=== PATIENT | male | born 1935 | race Caucasian/White ===

== ENCOUNTER 2018-12-13 09:37 | Inpatient (IN) ==
--- NOTE | 2018-12-13 10:31 | ED ---
HPI General Chief complaint: GI Bleed Stated complaint: GI Complaint Time Seen by Provider: 12/13/18 10:18 Source: patient and EMS Mode of arrival: EMS Limitations: no limitations History of Present Illness HPI Narrative: 83-year-old male complains of generalized malaise, black tarry stool and shortness of breath. Patient states that symptoms started 4 days ago. Patient states that he has black tarry stool for the past 4 days. Patient states that he has mild intermittent abdominal cramping for the past 4 days. Patient denies any headache. Patient denies any chest pain. Patient states that he has shortness of breath. Patient denies any back pain. Patient denies any dysuria or frequency. Patient denies any fever chills. Patient has history of hypertension, hyperlipidemia, CAD status post CABG. Patient take aspirin 81 mg daily. Last dose of aspirin for this morning. Patient denies history of GI bleed in the past. MD complaint: Reports melena Onset (ago): day(s) Pain Consistency: intermittent Severity: mild Relieving factors: none Exacerbating factors: none Context: Reports anticoagulant use Associated symptoms: Reports abdominal pain, malaise and shortness of breath Treatments Prior to Arrival: Reports none Related Data Home Medications Medication Instructions Recorded Confirmed albuterol sulfate 2.5 mg INHALATION Q6H 12/13/18 12/13/18 aspirin 81 mg PO DAILY 12/13/18 12/13/18 atorvastatin 40 mg PO DAILY 12/13/18 12/13/18 carvedilol 25 mg PO BID 12/13/18 12/13/18 furosemide 40 mg PO BID 12/13/18 12/13/18 hydralazine 10 mg PO Q8H 12/13/18 12/13/18 isosorbide mononitrate 30 mg PO DAILY 12/13/18 12/13/18 niacin 500 mg PO DAILY 12/13/18 12/13/18 olodaterol [Striverdi Respimat] 2 inh INHALATION DAILY 12/13/18 12/13/18 pantoprazole 40 mg PO DAILY 12/13/18 12/13/18 Allergies Allergy/AdvReac Type Severity Reaction Status Date / Time No Known Allergies Allergy Verified 12/13/18 10:17 Review of Systems ROS: all other systems reviewed are negative [facility] Medical History Medical History Hypercholesteremia (Acute) Hypertension (Acute) Surgical History Surgical History Hx of CABG (Acute) Social History Social History Substance History: No History of Abuse Smoking Status: Former smoker How Often Do You Have a Drink Containing Alcohol: Never Recent Travel in [facility] within the Last 8 Weeks: No Recent Out of Country Travel within the Last 8 Weeks: No Immunization History Tetanus Immunization: Unsure Exam Narrative Exam Narrative: GENERAL: Well-nourished, well-developed patient. SKIN: Focused skin assessment warm/dry. HEAD: Normocephalic. EYES: No scleral icterus. No injection or drainage. NECK: Supple, trachea midline. No JVD or lymphadenopathy. CARDIOVASCULAR: Regular rate and rhythm without murmurs, gallops, or rubs. RESPIRATORY: Breath sounds equal bilaterally. No accessory muscle use. GASTROINTESTINAL: Abdomen soft, nondistended. Patient has mild diffuse tenderness over the abdomen. No rebound tenderness. No mass. Rectal exam with black tarry stool. Hemoccult positive. MUSCULOSKELETAL: No cyanosis, or edema. BACK: Nontender without obvious deformity. No CVA tenderness. Neurologic exam normal. Course Initial Documented Vital Signs Temperature 98 F 12/13/18 10:17 Pulse Rate 70 12/13/18 10:17 Respiratory Rate 18 12/13/18 10:17 Blood Pressure 148/63 H 12/13/18 10:17 Pulse Oximetry 98 12/13/18 10:17 Last Documented Vital Signs Temperature 98 F 12/13/18 10:17 Pulse Rate 70 12/13/18 10:23 Respiratory Rate 18 12/13/18 10:17 Blood Pressure 148/63 H 12/13/18 10:17 Pulse Oximetry 99 12/13/18 10:23 Medical Decision Making MDM Narrative Medical decision making narrative: 83-year-old male with intermittent abdominal cramping, black tarry stool. Patient complains of shortness of breath. Normal saline solution 125 cc an hour. Protonix bolus and drip started. Octreotide drip started. Type and cross 3 units of blood and started transfusion when ready. CT scan abdomen pelvis showed possible early distal colon diverticulitis. Levaquin 500 mg IV. Flagyl 500 mg IV given. Medical Screen Exam Complete: Yes Emergency Medical Condition: Yes Differential Diagnosis Differential Diagnosis: Differential diagnosis including upper versus lower GI bleed, diverticulosis, diverticulitis, AV malformation, hemorrhoidal bleed. Lab Data Result diagrams: 12/13/18 10:35 12/13/18 10:35 Lab Results 12/13/18 12/13/18 12/13/18 Range/Units 10:35 10:35 10:35 WBC 12.1 H (4.0-11.0) th/mm3 RBC 1.80 L (4.50-5.90) mil/mm3 Hgb 5.4 L* (13.0-17.0) gm/dL Hct 16.6 L* (39.0-51.0) % MCV 91.9 (80.0-100.0) fL MCH 30.2 (27.0-34.0) pg MCHC 32.9 (32.0-36.0) % RDW 14.8 (11.6-17.2) % Plt Count 187 (150-450) th/mm3 MPV 9.0 (7.0-11.0) fL Neut % (Auto) 72.7 H (16.0-70.0) % Lymph % (Auto) 16.2 (9.0-44.0) % [place] % (Auto) 6.9 (0.0-8.0) % Eos % (Auto) 3.5 (0.0-4.0) % Baso % (Auto) 0.7 (0.0-2.0) % Neut # (Auto) 8.8 H (1.8-7.7) th/mm3 Lymph # (Auto) 2.0 (1.0-4.8) th/mm3 [place] # (Auto) 0.8 (0.0-0.9) th/mm3 Eos # (Auto) 0.4 (0.0-0.4) th/mm3 Baso # (Auto) 0.1 (0.0-0.2) th/mm3 WBC Differential . Differential Comment Auto diff final PT 10.9 (9.8-11.6) sec INR 1.1 Ratio APTT 22.4 L (23.4-31.7) sec Sodium 143 (136-145) meq/L Potassium 4.3 (3.5-5.1) meq/L Chloride 105 (98-107) meq/L Carbon Dioxide 30.8 (21.0-32.0) meq/L Anion Gap 7 (5-15) meq/L BUN 70 H (7-18) mg/dL Creatinine 2.05 H (0.60-1.30) mg/dL Estimated GFR 31 L (>89) mL/min Random Glucose 145 H (74-106) mg/dL Calcium 8.1 L (8.5-10.1) mg/dL Total Bilirubin 0.3 (0.2-1.0) mg/dL AST 12 L (15-37) U/L ALT 13 (12-78) U/L Alkaline Phosphatase 86 (45-117) U/L Troponin I Less than 0.02 L (0.02-0.05) ng/mL Total Protein 5.8 L (6.4-8.2) g/dL Albumin 2.9 L (3.4-5.0) g/dL Lipase 131 (73-393) U/L Blood Type Blood Type Recheck Antibody Screen MTS Gel Crossmatch 12/13/18 12/13/18 Range/Units 10:35 11:11 WBC (4.0-11.0) th/mm3 RBC (4.50-5.90) mil/mm3 Hgb (13.0-17.0) gm/dL Hct (39.0-51.0) % MCV (80.0-100.0) fL MCH (27.0-34.0) pg MCHC (32.0-36.0) % RDW (11.6-17.2) % Plt Count (150-450) th/mm3 MPV (7.0-11.0) fL Neut % (Auto) (16.0-70.0) % Lymph % (Auto) (9.0-44.0) % [place] % (Auto) (0.0-8.0) % Eos % (Auto) (0.0-4.0) % Baso % (Auto) (0.0-2.0) % Neut # (Auto) (1.8-7.7) th/mm3 Lymph # (Auto) (1.0-4.8) th/mm3 [place] # (Auto) (0.0-0.9) th/mm3 Eos # (Auto) (0.0-0.4) th/mm3 Baso # (Auto) (0.0-0.2) th/mm3 WBC Differential Differential Comment PT (9.8-11.6) sec INR Ratio APTT (23.4-31.7) sec Sodium (136-145) meq/L Potassium (3.5-5.1) meq/L Chloride (98-107) meq/L Carbon Dioxide (21.0-32.0) meq/L Anion Gap (5-15) meq/L BUN (7-18) mg/dL Creatinine (0.60-1.30) mg/dL Estimated GFR (>89) mL/min Random Glucose (74-106) mg/dL Calcium (8.5-10.1) mg/dL Total Bilirubin (0.2-1.0) mg/dL AST (15-37) U/L ALT (12-78) U/L Alkaline Phosphatase (45-117) U/L Troponin I (0.02-0.05) ng/mL Total Protein (6.4-8.2) g/dL Albumin (3.4-5.0) g/dL Lipase (73-393) U/L Blood Type A Positive Blood Type Recheck Not needed Antibody Screen Negative MTS Gel Crossmatch See Detail Imaging Data Radiologist's impression: Abdomen/Pelvis CT 12/13/18 10:18 CONCLUSION: 1. Diverticulosis of the descending and sigmoid colon with minimal stranding in the region of the distal descending colon suggesting a mild degree of diverticulitis. No perforation or abscess. 2. Abdominal aortic aneurysm measures 3.5 cm. 3. Status post cholecystectomy. 4. Bilateral renal low-density likely cyst. 5. 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 Discharge Plan Discharge Disposition Patient Disposition: ED Admit(ED Internal Use Only) Discharge Order Discharge Orders: ED Use Only Admit Order (Routine); Ordered 12/13/18 Ordered By: Shaw Julian Discharge Details Diagnosis: Acute GI bleeding, Anemia, Renal insufficiency Physicians Team ED Provider: Shaw Julian Primary Care Provider: Isrrael Gill Attending Provider: Fer Moe Other Providers: Sancho Monique V Status ED Status: Admitted Patient
[2018-12-13] MEDS: Octreotide Inj 500 MCG in Sodium Chlor 0.9% Inj 500 ML IV.CONT SCH ×2 (10:47→21:47)
[2018-12-13] MEDS: Sod Chloride 0.9% Inj 1,000 ML IV.CONT SCH ×2 (10:47→20:52)
[2018-12-13] MEDS: Pantoprazole Inj 80 MG in Sodium Chlor 0.9% Inj 100 ML IV.CONT SCH ×2 (10:48→22:35)
[2018-12-13 10:54] LABS: Baso # (Auto) 0.1 th/mm3 (0.0-0.2); Baso % (Auto) 0.7 % (0.0-2.0); Eos # (Auto) 0.4 th/mm3 (0.0-0.4); Eos % (Auto) 3.5 % (0.0-4.0); Lymph % (Auto) 16.2 % (9.0-44.0); Mean Corpuscular HGB Conc 32.9 % (32.0-36.0); Mean Corpuscular Hemoglobin 30.2 pg (27.0-34.0); Mean Corpuscular Volume 91.9 fL (80.0-100.0); Mono # (Auto) 0.8 th/mm3 (0.0-0.9); Mono % (Auto) 6.9 % (0.0-8.0); Neut # (Auto) 8.8 th/mm3 (1.8-7.7); Neut % (Auto) 72.7 % (16.0-70.0); Platelet Count 187 th/mm3 (150-450); Red Cell Distribution Width 14.8 % (11.6-17.2); White Blood Count 12.1 th/mm3 (4.0-11.0)
[2018-12-13 10:58] LABS: Hematocrit 16.6 % (39.0-51.0); Hemoglobin 5.4 gm/dL (13.0-17.0)
[2018-12-13 11:10] LABS: Activated Partial Thrombo Time 22.4 sec (23.4-31.7); INR 1.1 Ratio; Prothrombin Time 10.9 sec (9.8-11.6)
[2018-12-13 11:12] LABS: Alanine Aminotransferase 13 U/L (12-78); Albumin 2.9 g/dL (3.4-5.0); Anion Gap 7 meq/L (5-15); Aspartate Aminotransferase 12 U/L (15-37); Blood Urea Nitrogen 70 mg/dL (7-18); Calcium 8.1 mg/dL (8.5-10.1); Carbon Dioxide 30.8 meq/L (21.0-32.0); Chloride 105 meq/L (98-107); Glomerular Filtration Rate 31 mL/min (>89); Glucose,Random 145 mg/dL (74-106); Lipase 131 U/L (73-393); Potassium 4.3 meq/L (3.5-5.1); Sodium 143 meq/L (136-145)
[2018-12-13 11:17] LABS: Alkaline Phosphatase 86 U/L (45-117); Total Protein 5.8 g/dL (6.4-8.2)
--- NOTE | 2018-12-13 12:00 | P.HPFP ---
History of Present Illness Primary Care Physician: Isrrael Gill <Fer Moe K - 12/13/18 14:40> Isrrael Gill <Micki Villa - 12/13/18 12:00> Chief Complaint: SOB, fatigue, black stools <Micki Villa - 12/13/18 12 :00> History of Present Illness: 83 year old male with hx of hypertension, hyperlipidemia, CAD status post CABG and COPD presents to the hospital for black tarry stools noted 3-4 days ago. Patient states he has passed a total of 2 to 3 black stools. He denies having anything like this before in the past and is not on iron supplementation. He denies seeing bright red blood in his stool. He is mildly nauseated and felt faint this morning, but denies vomiting. After receiving fluids in the ED, he is no longer experiencing lightheadedness. He admits to abdominal "soreness" in the lower quadrants for the past couple of weeks. He is currently on aspirin , but is not on any other blood thinners. Denies chronic NSAID use. He also notes increasing fatigue for the past couple of weeks. Denies any alcohol use, or history of liver problems. He does admit to history of bleeding hemorrhoids and is currently on a PPI for reflux, however, denies any other GI issues. States that his last colonoscopy was performed within the last 5 years, which was normal. Denies fevers, chills, unintentional weight loss, other notable bleeding, headache, syncopal, chest pain, or recent recurrent falls. Patient also notes slightly increased shortness of breath from baseline, which he attributes to his COPD. He is normally on O2 3L NC continuously throughout the day, and uses albuterol nebulizing treatments and steroid inhaler every day. No sick contacts. 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 Quit smoking in 1994. Drink EOTH rarely. Admits to drinking 1 beer every couple months. Denies illicit drug use PCP: Recently changed to a new physician in [place]. Used to see Dr. De Leon. 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 <Micki Villa 12/13/18 14:04> - Diagnosis (1) Acute GI bleeding (2) Anemia (3) Renal insufficiency (4) COPD (chronic obstructive pulmonary disease) (5) Hypertension (6) Nutrition, metabolism, and development symptoms (7) DVT prophylaxis <Fer Moe 12/13/18 14:40> (1) Acute GI bleeding (2) Anemia (3) Renal insufficiency (4) COPD (chronic obstructive pulmonary disease) (5) Hypertension (6) Nutrition, metabolism, and development symptoms (7) DVT prophylaxis <Deandra Micki Young 12/13/18 14:17> Inpatient Certification: I certify that the inpatient services were ordered in accordance with Medicare regulations governing the order. This includes certification that hospital inpatient services are reasonable and necessary and in the case of services not specified as inpatient-only under 42 CFR 419.22(n), that they are appropriately provided as inpatient services in accordance to with the 2-midnight benchmark under 43 CFR 412.3(e) <Fer Moe 12/13/18 14:40> I certify that the inpatient services were ordered in accordance with Medicare regulations governing the order. This includes certification that hospital inpatient services are reasonable and necessary and in the case of services not specified as inpatient-only under 42 CFR 419.22(n), that they are appropriately provided as inpatient services in accordance to with the 2-midnight benchmark under 43 CFR 412.3(e) <Micki Villa 12/13/18 12:00> Review of Systems Constitutional: Reports fatigue, Reports lack of energy, Reports weakness, Denies chills, Denies fever(s) <Deandra Micki Young 12/13/18 13:40> Eyes: Reports requires corrective lenses, Denies change in vision <Deandra Micki Young 12/13/18 13:40> Ears, Nose, Mouth, and Throat: Denies nasal congestion, Denies sinus pain, Denies sore throat <Deandra Micki Young 12/13/18 13:40> Cardiovascular: Denies chest pain, Denies fast heart rate, Denies irregular heart rhythm <Deandra Micki Young 12/13/18 13:40> Respiratory: Reports shortness of breath, Denies cough <Sung Micki Young B 12/13/18 13:40> Gastrointestinal: Reports abdominal pain (Mild, diffuse), Reports black, tarry stools, Reports nausea, Denies vomiting <Micki Villa 12/13/18 13:40> Genitourinary: Reports difficulty urinating (Intermittent, followed by urologist ) <Micki Villa 12/13/18 13:40> Musculoskeletal: Denies numbness, Denies tingling <Micki Villa 13:40> Neurologic: Denies frequent falls, Denies headache(s), Denies lack of coordination <Micki Villa 12/13/18 13:40> PMFSH - History History Provided By: Patient <Black YoungMicki B 12/13/18 12:00> - Medical History Medical History: Medical History (Last Updated 12/13/18 @ 13:25 by Micki Young, DO, R1) CAD (coronary artery disease) Hypercholesteremia Hypertension <Fer Moe 12/13/18 14:40> Medical History (Last Updated 12/13/18 @ 13:25 by Micki Young DO, R1) CAD (coronary artery disease) Hypercholesteremia Hypertension <Micki Villa 12/13/18 13:40> - Surgical History Surgical History: Surgical History (Last Updated 12/13/18 @ 13:25 by Micki Young, DO, R1) History of cholecystectomy Hx of CABG S/P AAA (abdominal aortic aneurysm) repair <Fer Moe 12/13/18 14:40> Surgical History (Last Updated 12/13/18 @ 13:25 by Micki Young DO, R1) History of cholecystectomy Hx of CABG S/P AAA (abdominal aortic aneurysm) repair <Micki Villa 12/13/18 13:40> - Social History I have reviewed the patient's Social History: Yes <Micki Villa 13:40> - Tobacco History Smoking Status: Former smoker <Micki Villa 12/13/18 12:00> - Alcohol History How Often Do You Have a Drink Containing Alcohol: Never <Micki Villa 12/13/18 12:00> - Substance Use History Substance History: No History of Abuse <Micki Villa 12/13/18 12:00> - Travel History Recent Travel in the [facility] Within the Last 8 Weeks: No <Micki Villa 12:00> Recent Travel Out of the Country Within the Last 8 Weeks: No <Micki Villa 12/13/18 12:00> - Immunization History Tetanus Immunization: Unsure <Micki Villa 12/13/18 12:00> Medications and Allergies Allergies Allergy/AdvReac Type Severity Reaction Status Date / Time No Known Allergies Allergy Verified 12/13/18 10:17 <Fer Moe - 12/13/18 14:40> Home Medications Medication Instructions Recorded Confirmed Type albuterol sulfate 2.5 mg INHALATION Q6H 12/13/18 12/13/18 History aspirin 81 mg PO DAILY 12/13/18 12/13/18 History atorvastatin 40 mg PO DAILY 12/13/18 12/13/18 History carvedilol 25 mg PO BID 12/13/18 12/13/18 History furosemide 40 mg PO BID 12/13/18 12/13/18 History hydralazine 10 mg PO Q8H 12/13/18 12/13/18 History isosorbide mononitrate 30 mg PO DAILY 12/13/18 12/13/18 History niacin 500 mg PO DAILY 12/13/18 12/13/18 History olodaterol [Striverdi Respimat] 2 inh INHALATION DAILY 12/13/18 12/13/18 History pantoprazole 40 mg PO DAILY 12/13/18 12/13/18 History <Fer Moe - 12/13/18 14:40> Active Medications: Active Medications Acetaminophen (Tylenol) 650 mg PO Q4H PRN PRN Reason: Temp > 100.4 Albuterol (*Albuterol Neb Periprocedure Only) 2.5 mg NEB Q6HR NEB PRN PRN Reason: SHORTNESS OF BREATH Atorvastatin Calcium (Lipitor) 40 mg PO DAILY MOMO Pantoprazole Sodium 80 mg/ (Sodium Chloride) 100 mls @ 10 mls/hr IV.CONT CONT MOMO Last Admin: 12/13/18 10:48 Dose: 10 mls/hr Octreotide Acetate 500 mcg/ (Sodium Chloride) 500.5 mls @ 50.05 mls/hr IV.CONT .Q10H MOMO Last Infusion: 12/13/18 14:00 Dose: 50 mcg/hr, 50.05 mls/hr Sodium Chloride (Ns Inj) 1,000 mls @ 125 mls/hr IV.CONT .Q8H MOMO Last Infusion: 12/13/18 14:01 Dose: 125 mls/hr Niacin (Slo-Niacin) 500 mg PO DAILY MOMO Ondansetron HCl (Zofran Inj) 4 mg IV.PUSH Q6H PRN PRN Reason: NAUSEA OR VOMITING Senna/Docusate Sodium (Herminia-Colace) 1 tab PO BID PRN PRN Reason: CONSTIPATION Sodium Chloride (Ns Flush) 2 ml IV.FLUSH BID MOMO Sodium Chloride (Ns Flush) 2 ml IV.FLUSH PRN PRN PRN Reason: FLUSH AFTER USING IV ACCESS <Fer Moe - 12/13/18 14:40> Active Medications Pantoprazole Sodium 80 mg/ (Sodium Chloride) 100 mls @ 10 mls/hr IV.CONT CONT MOMO Last Admin: 12/13/18 10:48 Dose: 10 mls/hr Octreotide Acetate 500 mcg/ (Sodium Chloride) 500.5 mls @ 50.05 mls/hr IV.CONT .Q10H MOMO Last Admin: 12/13/18 10:47 Dose: 50 mcg/hr, 50.05 mls/hr Sodium Chloride (Ns Inj) 1,000 mls @ 125 mls/hr IV.CONT .Q8H MOMO Last Admin: 12/13/18 10:47 Dose: 125 mls/hr <Micki Villa - 12/13/18 12:15> Exam Vital signs: Vital Signs 12/13/18 10:17 12/13/18 10:23 12/13/18 13:00 Temperature 98 F Pulse Rate 70 70 72 Respiratory Rate 18 Blood Pressure 148/63 H Pulse Oximetry 98 99 98 12/13/18 13:03 12/13/18 13:20 Temperature 97.9 F 97.8 F Pulse Rate 69 80 Respiratory Rate 20 18 Blood Pressure 126/60 135/70 Pulse Oximetry 97 99 Intake & Output 02/20/19 02/21/19 02/21/19 18:59 06:59 18:59 Intake Total 100 / 100 Balance 100 / 100 Weight 68.039 kg Intake: IV 100 / 100 Flagyl 500 MG Inj 100 ML @ 100 100 / 100 mls/hr IV.SIG ONCE ONE Rx#: [id number] Intake (Blood Product) Amt 0 / 0 Rbc As-3 Leukoreduced Unit 0 / 0 [id number] <MorganchelsyFer ceballos - 12/13/18 14:40> Vital Signs 12/13/18 10:17 12/13/18 10:23 Temperature 98 F Pulse Rate 70 70 Respiratory Rate 18 Blood Pressure 148/63 H Pulse Oximetry 98 99 Intake & Output 12/12/18 12/13/18 12/13/18 18:59 06:59 18:59 Weight 68.039 kg <Micki Villa - 12/13/18 12:00> Narrative: GENERAL: 83-year-old, well nourished M laying down comfortably in bed. In no acute distress. SKIN: Warm and dry. Mild skin breakdown on bilateral anterior lower extremity, chronic per patient. Chronic ecchymosis of bilateral forearms. HEAD: Atraumatic. Normocephalic. EYES: EMOI. PERRLA. No scleral icterus. No injection or drainage. ENT: No nasal bleeding or discharge. Pallor of mucous membranes and conjunctiva. Airway patent. CARDIOVASCULAR: Regular rate and rhythm. No murmur. Capillary refill greater than 2 seconds. 1-2+ pitting edema of bilateral lower extremities to knee. RESPIRATORY: No accessory muscle use. Difficult to auscultate due to patient's inability to sit up on examination, but overall clear to auscultation, equal breath sounds without crackles, wheeze, rales or rhonchi. GASTROINTESTINAL: Abdomen soft, nondistended. Mild diffuse tenderness to palpation. No guarding or rebound. Hepatic and splenic margins not palpable. MUSCULOSKELETAL: Extremities without clubbing, cyanosis, or edema. No obvious deformities. No calf tenderness. NEUROLOGICAL: Awake and alert. No obvious cranial nerve deficits. Motor grossly within normal limits. Five out of 5 muscle strength in the arms and legs. Normal speech. PSYCHIATRIC: Appropriate mood and affect; insight and judgment normal. <Micki Villa 12/13/18 13:40> Results - Labs Result diagrams: 12/13/18 10:35 12/13/18 10:35 <Fer Moe - 12/13/18 14:40> Abnormal lab results 12/13/18 12/13/18 12/13/18 Range/Units 10:35 10:35 10:35 WBC 12.1 H (4.0-11.0) th/mm3 RBC 1.80 L (4.50-5.90) mil/mm3 Hgb 5.4 L* (13.0-17.0) gm/dL Hct 16.6 L* (39.0-51.0) % Neut % (Auto) 72.7 H (16.0-70.0) % Neut # (Auto) 8.8 H (1.8-7.7) th/mm3 APTT 22.4 L (23.4-31.7) sec BUN 70 H (7-18) mg/dL Creatinine 2.05 H (0.60-1.30) mg/dL Estimated GFR 31 L (>89) mL/min Random Glucose 145 H (74-106) mg/dL Calcium 8.1 L (8.5-10.1) mg/dL AST 12 L (15-37) U/L Troponin I Less than 0.02 L (0.02-0.05) ng/mL Total Protein 5.8 L (6.4-8.2) g/dL Albumin 2.9 L (3.4-5.0) g/dL MTS Gel Crossmatch 12/13/18 Range/Units 11:11 WBC (4.0-11.0) th/mm3 RBC (4.50-5.90) mil/mm3 Hgb (13.0-17.0) gm/dL Hct (39.0-51.0) % Neut % (Auto) (16.0-70.0) % Neut # (Auto) (1.8-7.7) th/mm3 APTT (23.4-31.7) sec BUN (7-18) mg/dL Creatinine (0.60-1.30) mg/dL Estimated GFR (>89) mL/min Random Glucose (74-106) mg/dL Calcium (8.5-10.1) mg/dL AST (15-37) U/L Troponin I (0.02-0.05) ng/mL Total Protein (6.4-8.2) g/dL Albumin (3.4-5.0) g/dL MTS Gel Crossmatch See Detail Short CBC 12/13/18 Range/Units 10:35 WBC 12.1 H (4.0-11.0) th/mm3 Hgb 5.4 L* (13.0-17.0) gm/dL Hct 16.6 L* (39.0-51.0) % Plt Count 187 (150-450) th/mm3 BMP 12/13/18 10:35 Sodium 143 Potassium 4.3 Chloride 105 Carbon Dioxide 30.8 BUN 70 H Creatinine 2.05 H Calcium 8.1 L Cardiac Enzymes 12/13/18 Range/Units 10:35 Troponin I Less than 0.02 L (0.02-0.05) ng/mL Liver Function 12/13/18 Range/Units 10:35 Total Bilirubin 0.3 (0.2-1.0) mg/dL AST 12 L (15-37) U/L ALT 13 (12-78) U/L Alkaline Phosphatase 86 (45-117) U/L Albumin 2.9 L (3.4-5.0) g/dL <Fer Moe - 12/13/18 14:40> Abnormal lab results 12/13/18 12/13/18 12/13/18 Range/Units 10:35 10:35 10:35 WBC 12.1 H (4.0-11.0) th/mm3 RBC 1.80 L (4.50-5.90) mil/mm3 Hgb 5.4 L* (13.0-17.0) gm/dL Hct 16.6 L* (39.0-51.0) % Neut % (Auto) 72.7 H (16.0-70.0) % Neut # (Auto) 8.8 H (1.8-7.7) th/mm3 APTT 22.4 L (23.4-31.7) sec BUN 70 H (7-18) mg/dL Creatinine 2.05 H (0.60-1.30) mg/dL Estimated GFR 31 L (>89) mL/min Random Glucose 145 H (74-106) mg/dL Calcium 8.1 L (8.5-10.1) mg/dL AST 12 L (15-37) U/L Troponin I Less than 0.02 L (0.02-0.05) ng/mL Total Protein 5.8 L (6.4-8.2) g/dL Albumin 2.9 L (3.4-5.0) g/dL MTS Gel Crossmatch 12/13/18 Range/Units 11:11 WBC (4.0-11.0) th/mm3 RBC (4.50-5.90) mil/mm3 Hgb (13.0-17.0) gm/dL Hct (39.0-51.0) % Neut % (Auto) (16.0-70.0) % Neut # (Auto) (1.8-7.7) th/mm3 APTT (23.4-31.7) sec BUN (7-18) mg/dL Creatinine (0.60-1.30) mg/dL Estimated GFR (>89) mL/min Random Glucose (74-106) mg/dL Calcium (8.5-10.1) mg/dL AST (15-37) U/L Troponin I (0.02-0.05) ng/mL Total Protein (6.4-8.2) g/dL Albumin (3.4-5.0) g/dL MTS Gel Crossmatch See Detail Short CBC 12/13/18 Range/Units 10:35 WBC 12.1 H (4.0-11.0) th/mm3 Hgb 5.4 L* (13.0-17.0) gm/dL Hct 16.6 L* (39.0-51.0) % Plt Count 187 (150-450) th/mm3 BMP 12/13/18 10:35 Sodium 143 Potassium 4.3 Chloride 105 Carbon Dioxide 30.8 BUN 70 H Creatinine 2.05 H Calcium 8.1 L Cardiac Enzymes 12/13/18 Range/Units 10:35 Troponin I Less than 0.02 L (0.02-0.05) ng/mL Liver Function 12/13/18 Range/Units 10:35 Total Bilirubin 0.3 (0.2-1.0) mg/dL AST 12 L (15-37) U/L ALT 13 (12-78) U/L Alkaline Phosphatase 86 (45-117) U/L Albumin 2.9 L (3.4-5.0) g/dL <Micki Villa - 12/13/18 12:00> - Imaging Impressions Abdomen/Pelvis CT 12/13/18 10:18 CONCLUSION: 1. Diverticulosis of the descending and sigmoid colon with minimal stranding in the region of the distal descending colon suggesting a mild degree of diverticulitis. No perforation or abscess. 2. Abdominal aortic aneurysm measures 3.5 cm. 3. Status post cholecystectomy. 4. Bilateral renal low-density likely cyst. 5. 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 <Fer Moe 12/13/18 14:40> Caprini VTE Risk Assessment Caprini VTE Risk Assessment: Moderate/High Risk (score >= 2) <Micki Villa 12/13/18 13:40> Caprini Risk Assessment Model: Point Value = 1 Point Value = 2 Point Value = 3 Point Value = 5 Age 41-60 Minor surgery BMI > 25 kg/m2 Swollen legs Varicose veins or History of unexplained or recurrent spontaneous Oral contraceptives or hormone replacement Sepsis (< 1 month) Serious lung disease, including pneumonia (< 1 month) Abnormal pulmonary function Acute myocardial infarction Congestive heart failure (< 1 month) History of inflammatory bowel disease Medical patient at bed rest Age 61-74 Arthroscopic surgery Major open surgery (> 45 min) Laparoscopic surgery (> 45 min) Malignancy Confined to bed (> 72 hours) Immobilizing plaster cast Central venous access Age >= 75 History of VTE Family history of VTE Factor V Leiden Prothrombin [id number] Lupus anticoagulant Anticardiolipin antibodies Elevated serum homocysteine Heparin-induced thrombocytopenia Other congenital or acquired thrombophilia Stroke (< 1 month) Elective arthroplasty Hip, pelvis, or leg fracture Acute spinal cord injury (< 1 month) <Fer Moe 12/13/18 14:40> Point Value = 1 Point Value = 2 Point Value = 3 Point Value = 5 Age 41-60 Minor surgery BMI > 25 kg/m2 Swollen legs Varicose veins or History of unexplained or recurrent spontaneous Oral contraceptives or hormone replacement Sepsis (< 1 month) Serious lung disease, including pneumonia (< 1 month) Abnormal pulmonary function Acute myocardial infarction Congestive heart failure (< 1 month) History of inflammatory bowel disease Medical patient at bed rest Age 61-74 Arthroscopic surgery Major open surgery (> 45 min) Laparoscopic surgery (> 45 min) Malignancy Confined to bed (> 72 hours) Immobilizing plaster cast Central venous access Age >= 75 History of VTE Family history of VTE Factor V Leiden Prothrombin [id number] Lupus anticoagulant Anticardiolipin antibodies Elevated serum homocysteine Heparin-induced thrombocytopenia Other congenital or acquired thrombophilia Stroke (< 1 month) Elective arthroplasty Hip, pelvis, or leg fracture Acute spinal cord injury (< 1 month) <Micki Villa B - 12/13/18 13:40> Prophylaxis Regimen: Total Risk Factor Score Risk Level Prophylaxis Regimen 0-1 Low Early ambulation 2 Moderate Order ONE of the following: *Sequential Compression Device (SCD) *Heparin 5000 units SQ BID 3-4 Higher Order ONE of the following medications: *Heparin 5000 units SQ TID *Enoxaparin/Lovenox 40 mg SQ daily (WT < 150 kg, CrCl > 30 mL/min) *Enoxaparin/Lovenox 30 mg SQ daily (WT < 150 kg, CrCl > 10-29 mL/min) *Enoxaparin/Lovenox 30 mg SQ BID (WT < 150 kg, CrCl > 30 mL/min) AND/OR *Sequential Compression Device (SCD) 5 or more Highest Order ONE of the following medications: *Heparin 5000 units SQ TID (Preferred with Epidurals) *Enoxaparin/Lovenox 40 mg SQ daily (WT < 150 kg, CrCl > 30 mL/min) *Enoxaparin/Lovenox 30 mg SQ daily (WT < 150 kg, CrCl > 10-29 mL/min) *Enoxaparin/Lovenox 30 mg SQ BID (WT < 150 kg, CrCl > 30 mL/min) AND *Sequential Compression Device (SCD) <Fer Moe - 12/13/18 14:40> Total Risk Factor Score Risk Level Prophylaxis Regimen 0-1 Low Early ambulation 2 Moderate Order ONE of the following: *Sequential Compression Device (SCD) *Heparin 5000 units SQ BID 3-4 Higher Order ONE of the following medications: *Heparin 5000 units SQ TID *Enoxaparin/Lovenox 40 mg SQ daily (WT < 150 kg, CrCl > 30 mL/min) *Enoxaparin/Lovenox 30 mg SQ daily (WT < 150 kg, CrCl > 10-29 mL/min) *Enoxaparin/Lovenox 30 mg SQ BID (WT < 150 kg, CrCl > 30 mL/min) AND/OR *Sequential Compression Device (SCD) 5 or more Highest Order ONE of the following medications: *Heparin 5000 units SQ TID (Preferred with Epidurals) *Enoxaparin/Lovenox 40 mg SQ daily (WT < 150 kg, CrCl > 30 mL/min) *Enoxaparin/Lovenox 30 mg SQ daily (WT < 150 kg, CrCl > 10-29 mL/min) *Enoxaparin/Lovenox 30 mg SQ BID (WT < 150 kg, CrCl > 30 mL/min) AND *Sequential Compression Device (SCD) <Micki Villa B - 12/13/18 13:40> Assessment and Plan - Assessment (1) Acute GI bleeding Code(s): K92.2 - Gastrointestinal hemorrhage, unspecified Status: Acute (2) Anemia Code(s): D64.9 - Anemia, unspecified Status: Acute (3) Renal insufficiency Code(s): N28.9 - Disorder of kidney and ureter, unspecified Status: Acute (4) COPD (chronic obstructive pulmonary disease) Code(s): J44.9 - Chronic obstructive pulmonary disease, unspecified Status: Acute (5) Hypertension Code(s): I10 - Essential (primary) hypertension Status: Acute (6) Nutrition, metabolism, and development symptoms Code(s): R63.8 - Other symptoms and signs concerning food and fluid intake Status: Acute (7) DVT prophylaxis Status: Acute <Fer Moe - 12/13/18 14:40> (1) Acute GI bleeding Code(s): K92.2 - Gastrointestinal hemorrhage, unspecified Status: Acute (2) Anemia Code(s): D64.9 - Anemia, unspecified Status: Acute (3) Renal insufficiency Code(s): N28.9 - Disorder of kidney and ureter, unspecified Status: Acute (4) COPD (chronic obstructive pulmonary disease) Code(s): J44.9 - Chronic obstructive pulmonary disease, unspecified Status: Acute (5) Hypertension Code(s): I10 - Essential (primary) hypertension Status: Acute (6) Nutrition, metabolism, and development symptoms Code(s): R63.8 - Other symptoms and signs concerning food and fluid intake Status: Acute (7) DVT prophylaxis Status: Acute <Micki Villa Arie - 12/13/18 14:17> - Assessment and Plan Severe anemia 2/2 GI bleed PUD vs. acute gastritis vs. esophageal varies vs. diverticulosis vs. acute mesenteric ischemia vs. malignancy vs. hemorrhoids. H&H 5.4/16.6 CT abd without contrast, due to JC, ordered in ED showed: 1. Diverticulosis of the descending and sigmoid colon with minimal stranding in the region of the distal descending colon suggesting a mild degree of diverticulitis. No perforation or abscess. 2. Abdominal aortic aneurysm measures 3.5 cm. 3. Status post cholecystectomy. 4. Bilateral renal low-density likely cyst. 5. 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 -CMP showed AST/ALT WNL -Lipase and troponin within normal limits -Hemoccult positive -PT/INR WNL -Continuous cardiac telemetry due to patient's volume status, at risk for arrhythmias -Fluid resuscitation at IV NS at 100 mls/hr -3 units of PRBCs ordered with repeat H&H following completion of transfusion -Protonix drip 80 mg at 10 mls/hr initiated in ED -Avoid NSAIDs -Hold ASA and other blood thinners -GI consulted, appreciate further recommendation Renal insufficiency BUN/Cr 70/2.05 with eGFR 31 Likely acute on chronic renal insufficiency -Continue IVF as states above -Repeat CMP in AM COPD -On continuous O2 3L NC at home -Albuterol breathing tx every 6 hours as needed for shortness of breath Urinary retention -Bladder scan with straight catheterization as needed for urinary retention Hx of hyperlipidemia -Continue home atorvastatin in the AM Hx of HTN -Hold home medications FEN: Fluids: IV NS at 125 mls/hr Electrolytes: Continue to monitor and replete as needed. Diet: NPO DVT prophylaxis SCDs and compression hose dw Dr. Landin <Micki Villa Arie - 12/13/18 14:18> - Attending Attestation The exam, history, and the medical decision-making described in the above note were completed with the assistance of the resident physician. I reviewed and agree with the findings presented. I attest that I had a [id number] encounter with the patient on the same day, and personally performed and documented my assessment and findings in the medical record. agree with resident histories as above d/w Dr Cleaning and patient. 2-3 days of melena no BPBR had Colon/EGD about 5 years ago with some polyps only per him. does have lightheadedness and fear of standing. having trouble urinating in bed khoury despite severe urge to urinate. NAD but pale with mild prolongation of capillary refill and some mild lower extremity edema. 1. GIB likely upper by melena but does have some diverticulitis GI consulted, going for EGD s/p IVF and 1/3 u PRBCs transfusing now on PPI and octreotide gtt will likely hold IVF after EGD to not risk fluid overload with comorbidities and concurrent blood admin 2. Diverticulitis mild on CT with some mesenteric fat stranding on levaquin and flagyl may transition to augmentin when can take PO 3. ABLA 2/2 #1, see plan above 4. JC unsure baseline will get bladder scan with his difficulty urinating and trend after volume resus chronic: cva, htn, hld, cad, copd, aaa, bph: cont home meds with exception of hold anti hypertensives until more stable after EGD if needed. d/w dr cleaning and ED staff <Fer Moe 12/13/18 14:40>
--- NOTE | 2018-12-13 12:04 | CT ---
EXAM DATE: 12/13/2018 11:53 AM EST AGE/SEX: 83 years / Male INDICATIONS: Shortness of breath and black stool. CLINICAL DATA: This is the patient's initial encounter. Patient reports that signs and symptoms have been present for 1 day and indicates a pain score of 0/10. MEDICAL/SURGICAL HISTORY: Hypertension. CABG. RADIATION DOSE: 9.55 CTDI (mGy) COMPARISON: No prior exams available for comparison. TECHNIQUE: Multiple contiguous axial images were obtained through the abdomen. Images were obtained using multiple row detector helical technique. Using automated exposure control and adjustment of the mA and/or kV according to patient size, radiation dose was kept as low as reasonably achievable to o btain optimal diagnostic quality images. DICOM format image data is available electronically for rev iew and comparison. FINDINGS: Lower Lungs: Bibasilar linear densities likely atelectasis. Liver: The liver has a homogeneous density without space-occupying lesion. There is no dilation of th e biliary tree. Cholecystectomy clips. Spleen: Homogeneous density without enlargement. Pancreas: Unremarkable without mass or calcification. Kidneys: Normal in size and shape. No evidence of mass or hydronephrosis. Bilateral renal low densit ies. Adrenal Glands: Unremarkable. Aorta: Infrarenal abdominal aortic aneurysm measures 3.5 cm. Extensive atherosclerotic changes. Bowel/Mesentery: Extensive diverticulosis of the descending and sigmoid colon with minimal stranding . Minimal stranding in the mesentery. Abdominal Wall: Intact. Retroperitoneum: No evidence of adenopathy in the retrocrural, para-aortic, or deep pelvic regions. Bladder: Contours are smooth. Reproductive Organs: No abnormal masses or calcifications seen. Inguinal: The inguinal region is unremarkable without evidence of adenopathy. Bony Structures: Unremarkable. CONCLUSION: 1. Diverticulosis of the descending and sigmoid colon with minimal stranding in the region of the di stal descending colon suggesting a mild degree of diverticulitis. No perforation or abscess. 2. Abdominal aortic aneurysm measures 3.5 cm. 3. Status post cholecystectomy. 4. Bilateral renal low-density likely cyst. 5. 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 Electronically signed by: Nish Velazquez MD Board Certified Radiologist 12/13/2018 12:03 PM EST
[2018-12-13] MEDS ORDERED: Senna/Docusate Sodium 8.6/50 MG Tablet PO PRN (12:27)
[2018-12-13] MEDS ORDERED: Levofloxacin 500 mg Premix Inj 500 MG/100 ML PIGGYBACK IV.SIG ONE (12:51)
--- NOTE | 2018-12-13 13:26 | P.CONGI ---
History of Present Illness Consult date: 12/13/18 Consult reason: GI bleed Melena stools Chief complaint: GI Bleed, Anemia, Renal Insufficiency History of Present Illness: This patient is a pleasant 83-year-old male with past medical history significant for CVA with left-sided weakness, hypertension, hyperlipidemia, coronary artery disease COPD. Surgical history significant for CABG x2 in 1994 and 2001 and abdominal aortic aneurysm repair in 2001. Patient presented to [facility] emergency room with reports of shortness of breath and dizziness. Patient endorsed black tarry stools onset 2-3 days ago. Patient endorses generalized weakness with shortness of breath, denies any abdominal pain or vomiting. Patient does admit to having nausea over the last 3-4 days. States last EGD with colonoscopy done estimated 5 years ago no significant findings. Prior colonoscopy 10 years ago revealed polyps that were benign per patient. Patient denies use of NSAIDs other than baby aspirin once daily. States he takes Tylenol as needed for arthritic pain. Patient denies use of tobacco or alcohol products. Upon arrival to ER, hemoglobin noted to be 5.4 hematocrit 16.6. Patient has been placed on a pantoprazole as well as octreotide drip. Patient currently being transfused with #1 of 3 ordered units of packed RBCs. Our service has been consulted to evaluate patient for GI bleeding. Review of Systems All other systems reviewed negative except as stated in HPI PMFSH - History History Provided By: Patient - Medical History Medical History: Medical History (Last Updated 12/13/18 @ 13:25 by Micki Young, DO, R1) CAD (coronary artery disease) Hypercholesteremia Hypertension - Surgical History Surgical History: Surgical History (Last Updated 12/13/18 @ 13:25 by Micki Young, DO, R1) History of cholecystectomy Hx of CABG S/P AAA (abdominal aortic aneurysm) repair - Tobacco History Smoking Status: Former smoker - Alcohol History How Often Do You Have a Drink Containing Alcohol: Never - Substance Use History Substance History: No History of Abuse - Travel History Recent Travel in the [place] Within the Last 8 Weeks: No Recent Travel Out of the Country Within the Last 8 Weeks: No - Immunization History Tetanus Immunization: Unsure Medications and Allergies Active Medications: Active Medications Acetaminophen (Tylenol) 650 mg PO Q4H PRN PRN Reason: Temp > 100.4 Albuterol (*Albuterol Neb Periprocedure Only) 2.5 mg NEB Q6H PRN PRN Reason: SHORTNESS OF BREATH Atorvastatin Calcium (Lipitor) 40 mg PO DAILY MOMO Pantoprazole Sodium 80 mg/ (Sodium Chloride) 100 mls @ 10 mls/hr IV.CONT CONT MOMO Last Admin: 12/13/18 10:48 Dose: 10 mls/hr Octreotide Acetate 500 mcg/ (Sodium Chloride) 500.5 mls @ 50.05 mls/hr IV.CONT .Q10H MOMO Last Admin: 12/13/18 10:47 Dose: 50 mcg/hr, 50.05 mls/hr Sodium Chloride (Ns Inj) 1,000 mls @ 125 mls/hr IV.CONT .Q8H MOMO Last Infusion: 12/13/18 13:08 Dose: 125 mls/hr Metronidazole/Sodium Chloride (Flagyl 500 Mg Inj) 100 mls @ 100 mls/hr IV.SIG ONCE ONE Stop: 12/13/18 13:50 Last Admin: 12/13/18 13:14 Dose: 100 mls/hr Levofloxacin/Dextrose (Levaquin 500 Mg Premix Inj) 500 mg in 100 mls @ 100 mls/ hr IV.SIG ONCE ONE Stop: 12/13/18 13:50 Non-Formulary Medication (Niacin [Niacin]) 500 mg PO DAILY MOMO Ondansetron HCl (Zofran Inj) 4 mg IV.PUSH Q6H PRN PRN Reason: NAUSEA OR VOMITING Senna/Docusate Sodium ([place]-Colace) 1 tab PO BID PRN PRN Reason: CONSTIPATION Sodium Chloride (Ns Flush) 2 ml IV.FLUSH BID MOMO Sodium Chloride (Ns Flush) 2 ml IV.FLUSH PRN PRN PRN Reason: FLUSH AFTER USING IV ACCESS Allergies Allergy/AdvReac Type Severity Reaction Status Date / Time No Known Allergies Allergy Verified 12/13/18 10:17 Home Medications Medication Instructions Recorded Confirmed Type albuterol sulfate 2.5 mg INHALATION Q6H 12/13/18 12/13/18 History aspirin 81 mg PO DAILY 12/13/18 12/13/18 History atorvastatin 40 mg PO DAILY 12/13/18 12/13/18 History carvedilol 25 mg PO BID 12/13/18 12/13/18 History furosemide 40 mg PO BID 12/13/18 12/13/18 History hydralazine 10 mg PO Q8H 12/13/18 12/13/18 History isosorbide mononitrate 30 mg PO DAILY 12/13/18 12/13/18 History niacin 500 mg PO DAILY 12/13/18 12/13/18 History olodaterol [Striverdi Respimat] 2 inh INHALATION DAILY 12/13/18 12/13/18 History pantoprazole 40 mg PO DAILY 12/13/18 12/13/18 History Exam Vital signs: Vital Signs 12/13/18 10:17 12/13/18 10:23 12/13/18 13:00 Temperature 98 F Pulse Rate 70 70 72 Respiratory Rate 18 Blood Pressure 148/63 H Pulse Oximetry 98 99 98 12/13/18 13:03 Temperature 97.9 F Pulse Rate 69 Respiratory Rate 20 Blood Pressure 126/60 Pulse Oximetry 97 Intake & Output 12/12/18 12/13/18 12/13/18 18:59 06:59 18:59 Intake Total 0 / 0 Balance 0 / 0 Weight 68.039 kg Intake: Intake (Blood Product) Amt 0 / 0 Rbc As-3 Leukoreduced Unit 0 / 0 [id number] - Constitutional no acute distress, cooperative - Routine HEENT Exam Head: Present: normocephalic. Absent: atraumatic ENT: Present: mucous membranes moist - Routine Respiratory Exam Present: CTA bilaterally. Absent: accessory muscle use - Routine Cardiovascular Exam Present: RRR, S1, S2. Absent: tachycardia - Routine Abdominal Exam Present: soft, normoactive bowel sounds. Absent: tenderness, distended, guarding, firm - Routine Extremities Exam Present: edema, pulses intact - Routine Skin Exam Present: dry, pallor, warm - Routine Neurological Exam Present: alert, oriented X3 Results - Labs CBC & Chem 7: 12/13/18 10:35 12/13/18 10:35 Labs: Laboratory Results - last 24 hr 12/13/18 12/13/18 12/13/18 10:35 10:35 10:35 WBC 12.1 H RBC 1.80 L Hgb 5.4 L* Hct 16.6 L* MCV 91.9 MCH 30.2 MCHC 32.9 RDW 14.8 Plt Count 187 MPV 9.0 Neut % (Auto) 72.7 H Lymph % (Auto) 16.2 [place] % (Auto) 6.9 Eos % (Auto) 3.5 Baso % (Auto) 0.7 Neut # (Auto) 8.8 H Lymph # (Auto) 2.0 [place] # (Auto) 0.8 Eos # (Auto) 0.4 Baso # (Auto) 0.1 WBC Differential . Differential Comment Auto diff final PT 10.9 INR 1.1 APTT 22.4 L Sodium 143 Potassium 4.3 Chloride 105 Carbon Dioxide 30.8 Anion Gap 7 BUN 70 H Creatinine 2.05 H Estimated GFR 31 L Random Glucose 145 H Calcium 8.1 L Total Bilirubin 0.3 AST 12 L ALT 13 Alkaline Phosphatase 86 Troponin I Less than 0.02 L Total Protein 5.8 L Albumin 2.9 L Lipase 131 Blood Type Blood Type Recheck Antibody Screen MTS Gel Crossmatch 12/13/18 12/13/18 10:35 11:11 WBC RBC Hgb Hct MCV MCH MCHC RDW Plt Count MPV Neut % (Auto) Lymph % (Auto) [place] % (Auto) Eos % (Auto) Baso % (Auto) Neut # (Auto) Lymph # (Auto) [place] # (Auto) Eos # (Auto) Baso # (Auto) WBC Differential Differential Comment PT INR APTT Sodium Potassium Chloride Carbon Dioxide Anion Gap BUN Creatinine Estimated GFR Random Glucose Calcium Total Bilirubin AST ALT Alkaline Phosphatase Troponin I Total Protein Albumin Lipase Blood Type A Positive Blood Type Recheck Not needed Antibody Screen Negative MTS Gel Crossmatch See Detail - Imaging Impressions Abdomen/Pelvis CT 12/13/18 10:18 CONCLUSION: 1. Diverticulosis of the descending and sigmoid colon with minimal stranding in the region of the distal descending colon suggesting a mild degree of diverticulitis. No perforation or abscess. 2. Abdominal aortic aneurysm measures 3.5 cm. 3. Status post cholecystectomy. 4. Bilateral renal low-density likely cyst. 5. 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 Assessment and Plan - Plan This patient is a pleasant 83-year-old male with past medical history significant for CVA with left-sided weakness, hypertension, hyperlipidemia, coronary artery disease COPD. Surgical history significant for CABG x2 in 1994 and 2001 and abdominal aortic aneurysm repair in 2001. Patient presented to [facility] emergency room with reports of shortness of breath and dizziness. Patient endorsed black tarry stools onset 2-3 days ago. Patient endorses generalized weakness with shortness of breath, denies any abdominal pain or vomiting. Patient does admit to having nausea over the last 3-4 days. States last EGD with colonoscopy done estimated 5 years ago no significant findings. Prior colonoscopy 10 years ago revealed polyps that were benign per patient. Patient denies use of NSAIDs other than baby aspirin once daily. States he takes Tylenol as needed for arthritic pain. Patient denies use of tobacco or alcohol products. Upon arrival to ER, hemoglobin noted to be 5.4 hematocrit 16.6. Patient has been placed on a pantoprazole as well as octreotide drip. Patient currently being transfused with #1 of 3 ordered units of packed RBCs. Our service has been consulted to evaluate patient for GI bleeding. Melena stools GI bleed Patient presents with onset of dizziness with black tarry stools 2-3 days ago. Patient endorses nausea with no vomiting. Last EGD and colonoscopy as noted above. Patient denies hematemesis or hematochezia. Denies heartburn or symptoms of acid reflux. --Hemoglobin 5.4 hematocrit 16.6 on arrival. Patient currently being transfused with 1 of 3 ordered units of packed RBCs. 12/13/2018 CT abdomen and pelvis: Diverticulosis of the descending and sigmoid colon with minimal stranding in the region of the distal descending colon suggesting a mild degree of diverticulitis. No perforation or abscess. Abdominal aortic aneurysm measures 3.5 cm. Status post cholecystectomy. Bilateral renal low-density likely cyst. Stranding in the mesentery likely mesenteric panniculitis Plan -Keep n.p.o -Obtain consent for EGD -Continue pantoprazole drip -Octreotide drip -Bleeding scan -Antiemetics as per attending -Avoid anticoagulants or NSAIDs -Monitor hemoglobin and hematocrit closely- serial -Transfuse as ordered -Monitor for active bleeding -Supportive care -Further recommendations to follow This patient has been seen by myself and Dr. Monique and this note is written on his behalf. - Attending Attestation Dr. Monique
[2018-12-13] MEDS ORDERED: Sodium Chlor 0.9% Inj 500 ML IV.CONT ONE (15:15)
[2018-12-13] MEDS ORDERED: Metoprolol Tartrate 25 MG Tablet PO ONE (15:15)
[2018-12-13] MEDS ORDERED: Chlorhexidine Gluconate 2% 1 Pack (2 Cloths) TOPICAL ONE (15:15)
[2018-12-13] MEDS ORDERED: Lidocaine PF 1% Inj 5 ML Syringe OTHER ONE (15:40)
[2018-12-13] MEDS ORDERED: *Ondansetron Inj 4 MG/2 ML Vial PERIprocedural Use ONLY ONE (17:01)
[2018-12-13] MEDS ORDERED: *morphine SULFATE 4 MG/ML PERIprocedure ONLY ONE (17:40)
[2018-12-13] MEDS ORDERED: *morphine SULFATE 10 MG/ML PERIprocedure ONLY ONE (17:57)
--- NOTE | 2018-12-13 19:36 | NM ---
EXAM DATE: 12/13/2018 7:27 PM EST AGE/SEX: 83 years / Male INDICATIONS: Rectal bleeding. Blood in stool for four days. CLINICAL DATA: This is the patient's initial encounter. Patient reports that signs and symptoms have been present for 4 - 6 days and indicates a pain score of 8/10. MEDICAL/SURGICAL HISTORY: Cardiovascular disease. Hypertension. CABG. Cholecystectomy. Abdom inal aortic aneurysm repair. COMPARISON: No prior exams available for comparison. No external comparison. TECHNIQUE: Following the modified in vitro labeling of autologous red cells, dynamic continuous image s were acquired for two hours. ?? DOSE: 20.0 mCi Tc 99m Ultratag Labeled Red Blood Cells IV IMAGING TIME: 2 hr FINDINGS: Biodistribution: There is a very good labeling of red cells without significant uptake in the gastri c wall. There is good delineation of the blood pool of the spleen and abdominal vessels. Bleeding: No episodes of active GI bleeding are observed during two hours of continuous observation . CONCLUSION: 1. Negative for gastrointestinal hemorrhage Electronically signed by: Isrrael Dunbar MD Board Certified Radiologist 12/13/2018 7:35 PM EST
[2018-12-13 23:56] LABS: Hematocrit 30.3 % (39.0-51.0); Hemoglobin 10.2 gm/dL (13.0-17.0)
[2018-12-14 03:42] LABS: Bacteria,Urine Rare /hpf; Bilirubin,Urine Negative (Negative); Clarity,Urine Clear (Clear); Color,Urine Yellow (Yellw/Straw); Glucose,Urine (UA) Negative (Negative); Leukocyte Esterase,Urine Negative (Negative); Mucus,Urine Few /lpf (Occasional); Nitrite,Urine Negative (Negative); Specific Gravity,Urine 1.011 (1.002-1.035); Squamous Epithelial Cell,Urine <1 /hpf (0-5)
[2018-12-14 04:59] LABS: Baso # (Auto) 0.1 th/mm3 (0.0-0.2); Baso % (Auto) 0.8 % (0.0-2.0); Eos % (Auto) 0.4 % (0.0-4.0); Hematocrit 27.9 % (39.0-51.0); Hemoglobin 9.5 gm/dL (13.0-17.0); Lymph # (Auto) 1.4 th/mm3 (1.0-4.8); Lymph % (Auto) 12.2 % (9.0-44.0); Mean Corpuscular Hemoglobin 29.8 pg (27.0-34.0); Mean Corpuscular Volume 87.8 fL (80.0-100.0); Mean Platelet Volume 8.9 fL (7.0-11.0); Mono % (Auto) 8.9 % (0.0-8.0); Neut # (Auto) 8.6 th/mm3 (1.8-7.7); Neut % (Auto) 77.7 % (16.0-70.0); Platelet Count 160 th/mm3 (150-450); Red Blood Count 3.18 mil/mm3 (4.50-5.90); Red Cell Distribution Width 15.6 % (11.6-17.2); White Blood Count 11.1 th/mm3 (4.0-11.0)
[2018-12-14 05:34] LABS: Albumin 2.6 g/dL (3.4-5.0); Anion Gap 8 meq/L (5-15); Aspartate Aminotransferase 16 U/L (15-37); Blood Urea Nitrogen 62 mg/dL (7-18); Calcium 7.5 mg/dL (8.5-10.1); Chloride 111 meq/L (98-107); Glomerular Filtration Rate 36 mL/min (>89); Glucose,Random 117 mg/dL (74-106); Potassium 4.1 meq/L (3.5-5.1); Sodium 148 meq/L (136-145)
[2018-12-14 05:35] LABS: Alanine Aminotransferase 13 U/L (12-78)
[2018-12-14 05:37] LABS: Alkaline Phosphatase 91 U/L (45-117); Total Protein 5.5 g/dL (6.4-8.2)
[2018-12-14] MEDS: Sod Chloride 0.9% Inj 1,000 ML IV.CONT SCH ×2 (06:45→10:13)
[2018-12-14] MEDS: Pantoprazole Inj 80 MG in Sodium Chlor 0.9% Inj 100 ML IV.CONT SCH (10:08)
[2018-12-14] MEDS: Octreotide Inj 500 MCG in Sodium Chlor 0.9% Inj 500 ML IV.CONT SCH (10:11)
--- NOTE | 2018-12-14 11:24 | P.PNFP ---
Subjective Interval history: Patient was seen and evaluated this morning. He reports feeling well. He is experiencing hoarseness but denies URI symptoms. He denies chest pain, shortness of breath, nausea, vomiting, diarrhea and constipation. He has some mild abdominal pain and continues to experience dark stools. All questions were answered. <Gerry Rema Bah - 12/14/18 13:38> Results - Labs Result diagrams: 12/14/18 12:43 12/14/18 04:42 <Fer Moe - 12/14/18 14:29> Abnormal lab results 12/13/18 12/13/18 12/14/18 Range/Units 11:11 23:39 03:00 WBC (4.0-11.0) th/mm3 RBC (4.50-5.90) mil/mm3 Hgb 10.2 L D (13.0-17.0) gm/dL Hct 30.3 L (39.0-51.0) % Neut % (Auto) (16.0-70.0) % [place] % (Auto) (0.0-8.0) % Neut # (Auto) (1.8-7.7) th/mm3 [place] # (Auto) (0.0-0.9) th/mm3 Sodium (136-145) meq/L Chloride (98-107) meq/L BUN (7-18) mg/dL Creatinine (0.60-1.30) mg/dL Estimated GFR (>89) mL/min Random Glucose (74-106) mg/dL Calcium (8.5-10.1) mg/dL Total Bilirubin (0.2-1.0) mg/dL Total Protein (6.4-8.2) g/dL Albumin (3.4-5.0) g/dL Urine Protein 100 H (Neg-Trace) mg/dL Urine Occult Blood Moderate H (Negative) Urine RBC 10 H (0-3) /hpf Urine Bacteria Rare H (None) /hpf Urine Mucus Few H (Occasional) /lpf MTS Gel Crossmatch See Detail 12/14/18 12/14/18 12/14/18 Range/Units 04:42 04:42 12:43 WBC 11.1 H (4.0-11.0) th/mm3 RBC 3.18 L (4.50-5.90) mil/mm3 Hgb 9.5 L 9.9 L (13.0-17.0) gm/dL Hct 27.9 L 29.2 L (39.0-51.0) % Neut % (Auto) 77.7 H (16.0-70.0) % [place] % (Auto) 8.9 H (0.0-8.0) % Neut # (Auto) 8.6 H (1.8-7.7) th/mm3 [place] # (Auto) 1.0 H (0.0-0.9) th/mm3 Sodium 148 H (136-145) meq/L Chloride 111 H (98-107) meq/L BUN 62 H (7-18) mg/dL Creatinine 1.80 H (0.60-1.30) mg/dL Estimated GFR 36 L (>89) mL/min Random Glucose 117 H (74-106) mg/dL Calcium 7.5 L (8.5-10.1) mg/dL Total Bilirubin 1.2 H (0.2-1.0) mg/dL Total Protein 5.5 L (6.4-8.2) g/dL Albumin 2.6 L (3.4-5.0) g/dL Urine Protein (Neg-Trace) mg/dL Urine Occult Blood (Negative) Urine RBC (0-3) /hpf Urine Bacteria (None) /hpf Urine Mucus (Occasional) /lpf MTS Gel Crossmatch Short CBC 12/13/18 12/14/18 12/14/18 Range/Units 23:39 04:42 12:43 WBC 11.1 H (4.0-11.0) th/mm3 Hgb 10.2 L D 9.5 L 9.9 L (13.0-17.0) gm/dL Hct 30.3 L 27.9 L 29.2 L (39.0-51.0) % Plt Count 160 (150-450) th/mm3 BMP 12/14/18 04:42 Sodium 148 H Potassium 4.1 Chloride 111 H Carbon Dioxide 29.0 BUN 62 H Creatinine 1.80 H Calcium 7.5 L Liver Function 12/14/18 Range/Units 04:42 Total Bilirubin 1.2 H (0.2-1.0) mg/dL AST 16 (15-37) U/L ALT 13 (12-78) U/L Alkaline Phosphatase 91 (45-117) U/L Albumin 2.6 L (3.4-5.0) g/dL Urine 12/14/18 Range/Units 03:00 Urine Color Yellow (Yellw/Straw) Urine Clarity Clear (Clear) Urine pH 5.0 (5.0-8.5) Ur Specific [place] 1.011 (1.002-1.035) Urine Protein 100 H (Neg-Trace) mg/dL Urine Glucose (UA) Negative (Negative) mg/dL <Fer Moe K - 12/14/18 14:29> Abnormal lab results 12/13/18 12/13/18 12/14/18 Range/Units 11:11 23:39 03:00 WBC (4.0-11.0) th/mm3 RBC (4.50-5.90) mil/mm3 Hgb 10.2 L D (13.0-17.0) gm/dL Hct 30.3 L (39.0-51.0) % Neut % (Auto) (16.0-70.0) % [place] % (Auto) (0.0-8.0) % Neut # (Auto) (1.8-7.7) th/mm3 [place] # (Auto) (0.0-0.9) th/mm3 Sodium (136-145) meq/L Chloride (98-107) meq/L BUN (7-18) mg/dL Creatinine (0.60-1.30) mg/dL Estimated GFR (>89) mL/min Random Glucose (74-106) mg/dL Calcium (8.5-10.1) mg/dL Total Bilirubin (0.2-1.0) mg/dL Total Protein (6.4-8.2) g/dL Albumin (3.4-5.0) g/dL Urine Protein 100 H (Neg-Trace) mg/dL Urine Occult Blood Moderate H (Negative) Urine RBC 10 H (0-3) /hpf Urine Bacteria Rare H (None) /hpf Urine Mucus Few H (Occasional) /lpf MTS Gel Crossmatch See Detail 12/14/18 12/14/18 Range/Units 04:42 04:42 WBC 11.1 H (4.0-11.0) th/mm3 RBC 3.18 L (4.50-5.90) mil/mm3 Hgb 9.5 L (13.0-17.0) gm/dL Hct 27.9 L (39.0-51.0) % Neut % (Auto) 77.7 H (16.0-70.0) % [place] % (Auto) 8.9 H (0.0-8.0) % Neut # (Auto) 8.6 H (1.8-7.7) th/mm3 [place] # (Auto) 1.0 H (0.0-0.9) th/mm3 Sodium 148 H (136-145) meq/L Chloride 111 H (98-107) meq/L BUN 62 H (7-18) mg/dL Creatinine 1.80 H (0.60-1.30) mg/dL Estimated GFR 36 L (>89) mL/min Random Glucose 117 H (74-106) mg/dL Calcium 7.5 L (8.5-10.1) mg/dL Total Bilirubin 1.2 H (0.2-1.0) mg/dL Total Protein 5.5 L (6.4-8.2) g/dL Albumin 2.6 L (3.4-5.0) g/dL Urine Protein (Neg-Trace) mg/dL Urine Occult Blood (Negative) Urine RBC (0-3) /hpf Urine Bacteria (None) /hpf Urine Mucus (Occasional) /lpf MTS Gel Crossmatch Short CBC 12/13/18 12/14/18 Range/Units 23:39 04:42 WBC 11.1 H (4.0-11.0) th/mm3 Hgb 10.2 L D 9.5 L (13.0-17.0) gm/dL Hct 30.3 L 27.9 L (39.0-51.0) % Plt Count 160 (150-450) th/mm3 BMP 12/14/18 04:42 Sodium 148 H Potassium 4.1 Chloride 111 H Carbon Dioxide 29.0 BUN 62 H Creatinine 1.80 H Calcium 7.5 L Liver Function 12/14/18 Range/Units 04:42 Total Bilirubin 1.2 H (0.2-1.0) mg/dL AST 16 (15-37) U/L ALT 13 (12-78) U/L Alkaline Phosphatase 91 (45-117) U/L Albumin 2.6 L (3.4-5.0) g/dL Urine 12/14/18 Range/Units 03:00 Urine Color Yellow (Yellw/Straw) Urine Clarity Clear (Clear) Urine pH 5.0 (5.0-8.5) Ur Specific [place] 1.011 (1.002-1.035) Urine Protein 100 H (Neg-Trace) mg/dL Urine Glucose (UA) Negative (Negative) mg/dL <Shamarrenee Rema Bah - 12/14/18 11:24> - Imaging Impressions GI Bleed Scan Nuclear Medicine 12/13/18 00:00 CONCLUSION: 1. Negative for gastrointestinal hemorrhage <Fer Moe - 12/14/18 14:29> Impressions GI Bleed Scan Nuclear Medicine 12/13/18 00:00 CONCLUSION: 1. Negative for gastrointestinal hemorrhage Abdomen/Pelvis CT 12/13/18 10:18 CONCLUSION: 1. Diverticulosis of the descending and sigmoid colon with minimal stranding in the region of the distal descending colon suggesting a mild degree of diverticulitis. No perforation or abscess. 2. Abdominal aortic aneurysm measures 3.5 cm. 3. Status post cholecystectomy. 4. Bilateral renal low-density likely cyst. 5. 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 <Shamarrenee Rema Bah - 12/14/18 11:24> Physical Exam Vital signs: Vital Signs 12/13/18 15:03 12/13/18 16:15 12/13/18 16:30 Temperature 97.4 F L Pulse Rate 66 68 Respiratory Rate 16 16 Blood Pressure 137/63 136/62 Pulse Oximetry 96 97 97 12/13/18 16:45 12/13/18 17:00 12/13/18 17:07 Temperature 97.4 F L Pulse Rate 70 70 66 Respiratory Rate 16 16 16 Blood Pressure 159/70 H 153/69 H 153/69 H Pulse Oximetry 97 97 97 12/13/18 17:15 12/13/18 17:30 12/13/18 20:00 Temperature 97.6 F Pulse Rate 70 72 18 L Respiratory Rate 16 16 18 Blood Pressure 151/69 H 158/70 H 152/68 H Pulse Oximetry 96 97 92 L 12/14/18 00:00 12/14/18 00:30 12/14/18 04:00 Temperature 97.7 F 98 F Pulse Rate 71 77 Respiratory Rate 20 16 Blood Pressure 147/67 H 146/67 H Pulse Oximetry 93 L 97 94 L 12/14/18 08:00 12/14/18 12:00 Temperature 98.0 F 98.0 F Pulse Rate 81 86 Respiratory Rate 19 19 Blood Pressure 149/65 H 155/70 H Pulse Oximetry 95 90 L Intake & Output 12/13/18 12/14/18 12/14/18 18:59 06:59 18:59 Intake Total 1200 / 1200 600.5 / 600.5 600.5 / 600.5 Output Total 300 / 300 Balance 900 / 900 600.5 / 600.5 600.5 / 600.5 Weight 68.039 kg 75 kg Intake: IV 200 / 200 600.5 / 600.5 600.5 / 600.5 SandoSTATIN Inj 500 MCG In NS 500.5 / 500.5 500.5 / 500.5 Inj 500 ML @ 50 MCG/HR 50.05 mls/hr IV.CONT .Q10H [facility] Rx#: [id number] Protonix Inj 80 MG In NS Inj 100 / 100 100 / 100 100 ML @ 10 mls/hr IV.CONT CONT [facility] Rx#:[id number] Flagyl 500 MG Inj 100 ML @ 100 100 / 100 mls/hr IV.SIG ONCE ONE Rx#: [id number] Anesthesia Amount 200 / 200 Intake (Blood Product) Amt 800 / 800 Rbc As-3 Leukoreduced Unit 400 / 400 [id number] Rbc As-3 Leukoreduced Unit 400 / 400 [id number] Rbc As-3 Leukoreduced Unit 0 / 0 [id number] Output: Urine 300 / 300 <Fer Moe K - 12/14/18 14:29> Vital Signs 12/13/18 13:00 12/13/18 13:03 12/13/18 13:20 Temperature 97.9 F 97.8 F Pulse Rate 72 69 80 Respiratory Rate 20 18 Blood Pressure 126/60 135/70 Pulse Oximetry 98 97 99 12/13/18 15:03 12/13/18 16:15 12/13/18 16:30 Temperature 97.4 F L Pulse Rate 66 68 Respiratory Rate 16 16 Blood Pressure 137/63 136/62 Pulse Oximetry 96 97 97 12/13/18 16:45 12/13/18 17:00 12/13/18 17:07 Temperature 97.4 F L Pulse Rate 70 70 66 Respiratory Rate 16 16 16 Blood Pressure 159/70 H 153/69 H 153/69 H Pulse Oximetry 97 97 97 12/13/18 17:15 12/13/18 17:30 12/13/18 20:00 Temperature 97.6 F Pulse Rate 70 72 18 L Respiratory Rate 16 16 18 Blood Pressure 151/69 H 158/70 H 152/68 H Pulse Oximetry 96 97 92 L 12/14/18 00:00 12/14/18 00:30 12/14/18 04:00 Temperature 97.7 F 98 F Pulse Rate 71 77 Respiratory Rate 20 16 Blood Pressure 147/67 H 146/67 H Pulse Oximetry 93 L 97 94 L 12/14/18 08:00 Temperature 98.0 F Pulse Rate 81 Respiratory Rate 19 Blood Pressure 149/65 H Pulse Oximetry 90 L Intake & Output 12/13/18 12/14/18 12/14/18 18:59 06:59 18:59 Intake Total 1200 / 1200 600.5 / 600.5 600.5 / 600.5 Output Total 300 / 300 Balance 900 / 900 600.5 / 600.5 600.5 / 600.5 Weight 68.039 kg 75 kg Intake: IV 200 / 200 600.5 / 600.5 600.5 / 600.5 SandoSTATIN Inj 500 MCG In NS 500.5 / 500.5 500.5 / 500.5 Inj 500 ML @ 50 MCG/HR 50.05 mls/hr IV.CONT .Q10H [facility] Rx#: [id number] Protonix Inj 80 MG In NS Inj 100 / 100 100 / 100 100 ML @ 10 mls/hr IV.CONT CONT [facility] Rx#:[id number] Flagyl 500 MG Inj 100 ML @ 100 100 / 100 mls/hr IV.SIG ONCE ONE Rx#: [id number] Anesthesia Amount 200 / 200 Intake (Blood Product) Amt 800 / 800 Rbc As-3 Leukoreduced Unit 400 / 400 [id number] Rbc As-3 Leukoreduced Unit 400 / 400 [id number] Rbc As-3 Leukoreduced Unit 0 / 0 [id number] Output: Urine 300 / 300 <Labell R2,Rema - 12/14/18 11:24> Narrative: GENERAL: 83-year-old, well nourished male, laying down comfortably in bed. In no acute distress. SKIN: Warm and dry. Mild skin breakdown on bilateral anterior lower extremity, chronic per patient. Chronic ecchymosis of bilateral forearms. HEAD: Atraumatic. Normocephalic. ENT: No nasal bleeding or discharge. Airway patent. CARDIOVASCULAR: Regular rate and rhythm. No murmur. RESPIRATORY: No accessory muscle use. Clear to auscultation, equal breath sounds without crackles, wheeze, rales or rhonchi. GASTROINTESTINAL: Abdomen soft, nondistended. Mild diffuse tenderness to palpation. No guarding or rebound. MUSCULOSKELETAL: 1-2+ pitting edema of bilateral lower extremities to knee. No obvious deformities. No calf tenderness. NEUROLOGICAL: Awake and alert. No obvious cranial nerve deficits. Normal speech. PSYCHIATRIC: Appropriate mood and affect; insight and judgment normal. <Rema Wang - 12/14/18 13:38> Assessment and Plan - Assessment (1) Acute GI bleeding Code(s): K92.2 - Gastrointestinal hemorrhage, unspecified Status: Acute (2) Diverticulosis Code(s): K57.90 - Diverticulosis of intestine, part unspecified, without perforation or abscess without bleeding Status: Acute (3) Diverticulitis Code(s): K57.92 - Diverticulitis of intestine, part unspecified, without perforation or abscess without bleeding Status: Acute (4) Anemia Code(s): D64.9 - Anemia, unspecified Status: Acute (5) Renal insufficiency Code(s): N28.9 - Disorder of kidney and ureter, unspecified Status: Acute (6) COPD (chronic obstructive pulmonary disease) Code(s): J44.9 - Chronic obstructive pulmonary disease, unspecified Status: Acute (7) Hypertension Code(s): I10 - Essential (primary) hypertension Status: Acute (8) Nutrition, metabolism, and development symptoms Code(s): R63.8 - Other symptoms and signs concerning food and fluid intake Status: Acute (9) DVT prophylaxis Status: Acute <Fer Moe - 12/14/18 14:29> (1) Acute GI bleeding Code(s): K92.2 - Gastrointestinal hemorrhage, unspecified Status: Acute Plan: s/p 3 units of PRBCs. Hgb stable at 9.9. Anemia likely secondary to GI bleed. Hemoccult positive. Abdomen/Pelvis CT 12/13/18: 1. Diverticulosis of the descending and sigmoid colon with minimal stranding in the region of the distal descending colon suggesting a mild degree of diverticulitis. No perforation or abscess. 2. Abdominal aortic aneurysm measures 3.5 cm. 3. Status post cholecystectomy. 4. Bilateral renal low-density likely cyst. 5. 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 GI consulted; appreciate recommendations. * EGD on 12/13/18 revealed diverticular bleed - report pending. Start Augmentin 875/125mg PO q8hr. Transition from Protonix IV to Protonix 40mg PO daily. IV hydration as below. Avoid NSAIDs. Hold ASA. Monitor H&H q6hr. (2) Diverticulosis Code(s): K57.90 - Diverticulosis of intestine, part unspecified, without perforation or abscess without bleeding Status: Acute Plan: See plan above. (3) Diverticulitis Code(s): K57.92 - Diverticulitis of intestine, part unspecified, without perforation or abscess without bleeding Status: Acute Plan: See plan above. (4) Anemia Code(s): D64.9 - Anemia, unspecified Status: Acute Plan: See plan above. (5) Renal insufficiency Code(s): N28.9 - Disorder of kidney and ureter, unspecified Status: Acute Plan: Improving. Cr 1.80. IV hydration as below. (6) COPD (chronic obstructive pulmonary disease) Code(s): J44.9 - Chronic obstructive pulmonary disease, unspecified Status: Acute Plan: Patient with history of COPD, on continuous O2 3L NC at home. Patient at his baseline. Albuterol breathing treatment q6hr PRN shortness of breath. (7) Hypertension Code(s): I10 - Essential (primary) hypertension Status: Acute Plan: Patient with history of hypertension. Restart home BP meds. (8) Nutrition, metabolism, and development symptoms Code(s): R63.8 - Other symptoms and signs concerning food and fluid intake Status: Acute Plan: Fluids: IV NS at 125 mls/hr. Nutrition: Clear liquid diet. Electrolytes: Monitor and replete as necessary. (9) DVT prophylaxis Status: Acute Plan: SCDs and compression hose. Pharmacologic prophylaxis contraindicated due to active GI bleed. <Rema Wang - 12/14/18 13:16> - Assessment and Plan Discharge Planning: Pending GI clearance. SNF placement at discharge. Case management consulted. <Rema Wang - 12/14/18 13:38> - Attending Attestation The exam, history, and the medical decision-making described in the above note were completed with the assistance of the resident physician. I reviewed and agree with the findings presented. I attest that I had a [id number] encounter with the patient on the same day, and personally performed and documented my assessment and findings in the medical record. patient feeling better today and breathing well. still with some melena. on home o2 requirements. GI following will try to come off gtts today and transition to bolus dose PPI will change to PO abx for diverticulitis which is mild diverticular bleed most likely source, none other ID'd per GI on endoscopy and nuc med GIB scan. continue to hold home ASA and trend Hgb for another day restart home diuretics hopefully d/c tomorrow if stable <Fer Moe - 12/14/18 14:29> <Rema Wang - Last Filed: 12/14/18 13:16> (2) Diverticulosis Qualifiers: Diverticulosis bleeding: diverticulosis with bleeding <Fer Moe - Last Filed: 12/14/18 14:29> (2) Diverticulosis Qualifiers: Diverticulosis bleeding: diverticulosis with bleeding <Rema Wang Filed: 12/14/18 13:16> (2) Diverticulosis Qualifiers: Diverticulosis bleeding: diverticulosis with bleeding <Fer Moe Filed: 12/14/18 14:29> (2) Diverticulosis Qualifiers: Diverticulosis bleeding: diverticulosis with bleeding
--- NOTE | 2018-12-14 11:26 | ECG ---
Date Performed: 12/14/2018 Time Performed: 05:26:06 PTAGE: 83 years EKG: Sinus rhythm Normal ECG PREVIOUS TRACING : 01/17/2002 08.06 Compared to previous tracing, heart rate has decreased, non specific T wave abnormality has resolved. DOCTOR: Ngerito Irving Interpretating Date/Time 12/14/2018 11:26:13
--- NOTE | 2018-12-14 11:41 | P.PNGI ---
Subjective Interval history: Patient awake and alert Post EGD Denies abdominal pain nausea or vomiting Nursing states no obvious bleeding Physical Exam Vital signs: Vital Signs 12/13/18 13:00 12/13/18 13:03 12/13/18 13:20 Temperature 97.9 F 97.8 F Pulse Rate 72 69 80 Respiratory Rate 20 18 Blood Pressure 126/60 135/70 Pulse Oximetry 98 97 99 12/13/18 15:03 12/13/18 16:15 12/13/18 16:30 Temperature 97.4 F L Pulse Rate 66 68 Respiratory Rate 16 16 Blood Pressure 137/63 136/62 Pulse Oximetry 96 97 97 12/13/18 16:45 12/13/18 17:00 12/13/18 17:07 Temperature 97.4 F L Pulse Rate 70 70 66 Respiratory Rate 16 16 16 Blood Pressure 159/70 H 153/69 H 153/69 H Pulse Oximetry 97 97 97 12/13/18 17:15 12/13/18 17:30 12/13/18 20:00 Temperature 97.6 F Pulse Rate 70 72 18 L Respiratory Rate 16 16 18 Blood Pressure 151/69 H 158/70 H 152/68 H Pulse Oximetry 96 97 92 L 12/14/18 00:00 12/14/18 00:30 12/14/18 04:00 Temperature 97.7 F 98 F Pulse Rate 71 77 Respiratory Rate 20 16 Blood Pressure 147/67 H 146/67 H Pulse Oximetry 93 L 97 94 L 12/14/18 08:00 Temperature 98.0 F Pulse Rate 81 Respiratory Rate 19 Blood Pressure 149/65 H Pulse Oximetry 90 L Intake & Output 12/13/18 12/14/18 12/14/18 18:59 06:59 18:59 Intake Total 1200 / 1200 600.5 / 600.5 600.5 / 600.5 Output Total 300 / 300 Balance 900 / 900 600.5 / 600.5 600.5 / 600.5 Weight 68.039 kg 75 kg Intake: IV 200 / 200 600.5 / 600.5 600.5 / 600.5 SandoSTATIN Inj 500 MCG In NS 500.5 / 500.5 500.5 / 500.5 Inj 500 ML @ 50 MCG/HR 50.05 mls/hr IV.CONT .Q10H [facility] Rx#: [id number] Protonix Inj 80 MG In NS Inj 100 / 100 100 / 100 100 ML @ 10 mls/hr IV.CONT CONT [facility] Rx#:[id number] Flagyl 500 MG Inj 100 ML @ 100 100 / 100 mls/hr IV.SIG ONCE ONE Rx#: [id number] Anesthesia Amount 200 / 200 Intake (Blood Product) Amt 800 / 800 Rbc As-3 Leukoreduced Unit 400 / 400 [id number] Rbc As-3 Leukoreduced Unit 400 / 400 [id number] Rbc As-3 Leukoreduced Unit 0 / 0 [id number] Output: Urine 300 / 300 - Constitutional no acute distress, cooperative - Routine HEENT Exam Head: Present: normocephalic - Routine Neck Exam Present: supple - Routine Respiratory Exam Present: CTA bilaterally. Absent: accessory muscle use - Routine Cardiovascular Exam Present: S1, S2 - Routine Abdominal Exam Present: soft, normoactive bowel sounds. Absent: tenderness, distended - Routine Skin Exam Present: dry, warm. Absent: pallor - Routine Neurological Exam Present: alert - Routine Psychiatric Exam Present: normal affect, good judgment Results - Labs CBC & Chem 7: 12/14/18 12:43 12/14/18 04:42 Laboratory Results - last 24 hr 12/13/18 12/13/18 12/13/18 10:35 11:11 23:39 WBC RBC Hgb 10.2 L D Hct 30.3 L MCV MCH MCHC RDW Plt Count MPV Neut % (Auto) Lymph % (Auto) [place] % (Auto) Eos % (Auto) Baso % (Auto) Neut # (Auto) Lymph # (Auto) [place] # (Auto) Eos # (Auto) Baso # (Auto) WBC Differential Differential Comment Sodium Potassium Chloride Carbon Dioxide Anion Gap BUN Creatinine Estimated GFR Random Glucose Calcium Total Bilirubin AST ALT Alkaline Phosphatase Total Protein Albumin Urine Color Urine Clarity Urine pH Ur Specific [place] Urine Protein Urine Glucose (UA) Urine Ketones Urine Occult Blood Urine Nitrate Urine Bilirubin Urine Urobilinogen Ur Leukocyte Esterase Urine RBC Urine WBC Ur Squamous Epith Cells Urine Bacteria Urine Mucus Micro UA Comment Ur Microscopic Review Urine Culture Comments Antibody Screen Negative MTS Gel Crossmatch See Detail 12/14/18 12/14/18 12/14/18 03:00 04:42 04:42 WBC 11.1 H RBC 3.18 L Hgb 9.5 L Hct 27.9 L MCV 87.8 D MCH 29.8 MCHC 34.0 RDW 15.6 Plt Count 160 MPV 8.9 Neut % (Auto) 77.7 H Lymph % (Auto) 12.2 [place] % (Auto) 8.9 H Eos % (Auto) 0.4 Baso % (Auto) 0.8 Neut # (Auto) 8.6 H Lymph # (Auto) 1.4 [place] # (Auto) 1.0 H Eos # (Auto) 0.0 Baso # (Auto) 0.1 WBC Differential . Differential Comment Auto diff final Sodium 148 H Potassium 4.1 Chloride 111 H Carbon Dioxide 29.0 Anion Gap 8 BUN 62 H Creatinine 1.80 H Estimated GFR 36 L Random Glucose 117 H Calcium 7.5 L Total Bilirubin 1.2 H AST 16 ALT 13 Alkaline Phosphatase 91 Total Protein 5.5 L Albumin 2.6 L Urine Color Yellow Urine Clarity Clear Urine pH 5.0 Ur Specific [place] 1.011 Urine Protein 100 H Urine Glucose (UA) Negative Urine Ketones Negative Urine Occult Blood Moderate H Urine Nitrate Negative Urine Bilirubin Negative Urine Urobilinogen Less than 2 Ur Leukocyte Esterase Negative Urine RBC 10 H Urine WBC 1 Ur Squamous Epith Cells <1 Urine Bacteria Rare H Urine Mucus Few H Micro UA Comment Culture not ind Ur Microscopic Review Not Reportable Urine Culture Comments Culture not ind Antibody Screen MTS Gel Crossmatch - Imaging Impressions GI Bleed Scan Nuclear Medicine 12/13/18 00:00 CONCLUSION: 1. Negative for gastrointestinal hemorrhage Abdomen/Pelvis CT 12/13/18 10:18 CONCLUSION: 1. Diverticulosis of the descending and sigmoid colon with minimal stranding in the region of the distal descending colon suggesting a mild degree of diverticulitis. No perforation or abscess. 2. Abdominal aortic aneurysm measures 3.5 cm. 3. Status post cholecystectomy. 4. Bilateral renal low-density likely cyst. 5. 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 Assessment and Plan - Plan This patient is a pleasant 83-year-old male with past medical history significant for CVA with left-sided weakness, hypertension, hyperlipidemia, coronary artery disease COPD. Surgical history significant for CABG x2 in 1994 and 2001 and abdominal aortic aneurysm repair in 2001. Patient presented to [facility] emergency room with reports of shortness of breath and dizziness. Patient endorsed black tarry stools onset 2-3 days ago. Patient endorses generalized weakness with shortness of breath, denies any abdominal pain or vomiting. Patient does admit to having nausea over the last 3-4 days. States last EGD with colonoscopy done estimated 5 years ago no significant findings. Prior colonoscopy 10 years ago revealed polyps that were benign per patient. Patient denies use of NSAIDs other than baby aspirin once daily. States he takes Tylenol as needed for arthritic pain. Patient denies use of tobacco or alcohol products. Upon arrival to ER, hemoglobin noted to be 5.4 hematocrit 16.6. Patient has been placed on a pantoprazole as well as octreotide drip. Patient currently being transfused with #1 of 3 ordered units of packed RBCs. Our service has been consulted to evaluate patient for GI bleeding. Melena stools GI bleed Patient presents with onset of dizziness with black tarry stools 2-3 days ago. Patient endorses nausea with no vomiting. Last EGD and colonoscopy as noted above. Patient denies hematemesis or hematochezia. Denies heartburn or symptoms of acid reflux. --Hemoglobin 5.4 hematocrit 16.6 on arrival. Patient currently being transfused with 1 of 3 ordered units of packed RBCs. 12/13/2018 CT abdomen and pelvis: Diverticulosis of the descending and sigmoid colon with minimal stranding in the region of the distal descending colon suggesting a mild degree of diverticulitis. No perforation or abscess. Abdominal aortic aneurysm measures 3.5 cm. Status post cholecystectomy. Bilateral renal low-density likely cyst. Stranding in the mesentery likely mesenteric panniculitis 12/14/2018 Diverticulosis 12/13/2018 post EGD----- The esophagus appeared normal The mucosa of the stomach appeared normal Normal duodenal mucosa in the entire duodenum No active bleeding or SRH Retroflexed views revealed a hiatal hernia Nuclear medicine bleeding scan--negative for gastro-intestinal hemorrhage No further bleeding WBC 11.1 hemoglobin 9.5 hematocrit 27.9 Total bilirubin 1.2 AST 16 ALT 13 alk phos 91 Plan -Clear liquid diet -N.p.o. after midnight -Obtain consent for colonoscopy -Pancho prep -Pantoprazole 40 mg p.o. daily -Monitor hemoglobin and hematocrit -Avoid anticoagulants and NSAIDs -Monitor for active bleeding -Supportive care This patient has been seen by myself and Dr. Monique and this note is written on his behalf. - Attending Attestation Dr. Monique
--- NOTE | 2018-12-14 12:34 | GIPROC ---
[facility] [address] [facility]. 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 TOPICAL ANESTHETIC: none CONSENT: The patient understands the risks and benefits of the procedure and understands that these risks include, but are not limited to: sedation, allergic reaction, infection, perforation and/or bleeding. Alternative means of evaluation and treatment include, among others: physical exam, x-rays, and/or surgical intervention. The patient elects to proceed with this endoscopic procedure. medical equipment was checked for proper function. Hand hygiene and appropriate measures for infection prevention was taken. After the risks, benefits and alternatives of the procedure were thoroughly explained, Informed consent was verified, confirmed and timeout was successfully executed by the treatment team. The patient was anesthetized with topical anesthesia and the Pentax EG-[id number] endoscope was introduced through the mouth and advanced to the second portion of the duodenum. Retroflexed views revealed a hiatal hernia The gastroscope was then slowly withdrawn and removed. ESOPHAGUS: The mucosa of the esophagus appeared normal. STOMACH: The mucosa of the stomach appeared normal. DUODENUM: The duodenal mucosa appeared normal in the entire duodenum. No active bleeding or SRH. ADVERSE EVENTS: There were no complications. IMPRESSIONS: 1. The esophagus appeared normal 2. The mucosa of the stomach appeared normal 3. Normal duodenal mucosa in the entire duodenum 4. No active bleeding or SRH 5. Retroflexed views revealed a hiatal hernia RECOMMENDATIONS: Monitor labs Supportive tx Bleeding scan PATIENT CONDITION: stable DISPOSITION: Inpatient REPEAT EXAM: Return as needed for EGD Sancho Monique MD eSigned: Sancho Monique MD 12/14/2018 12:34 PM cc: PATIENT NAME: Renato Early MR#: [id number]
[2018-12-14 13:12] LABS: Hematocrit 29.2 % (39.0-51.0); Hemoglobin 9.9 gm/dL (13.0-17.0)
[2018-12-14] MEDS: Carvedilol 12.5 MG Tablet PO SCH ×2 (15:24→21:05)
[2018-12-14] MEDS: Isosorbide Mononitrate 30 MG ER 24HR Tablet (Imdur) PO SCH (15:24)
[2018-12-14] MEDS: hydrALAZINE 10 MG Tablet PO SCH ×2 (15:24→21:08)
[2018-12-14] MEDS: Amoxicillin/Clavulanate 875/125 MG Tablet PO SCH ×2 (15:25→21:08)
[2018-12-14] MEDS ORDERED: PEG 3350/E-Lyte Soln 4000 ML Bottle PO ONE (17:00)
[2018-12-14 17:43] LABS: Hematocrit 27.8 % (39.0-51.0); Hemoglobin 9.7 gm/dL (13.0-17.0)
[2018-12-14 22:58] LABS: Hemoglobin 9.4 gm/dL (13.0-17.0)
[2018-12-15] MEDS: Acetaminophen 325 MG Tablet PO PRN ×2 (05:19→17:12)
[2018-12-15] MEDS: Amoxicillin/Clavulanate 875/125 MG Tablet PO SCH ×3 (05:20→21:43)
[2018-12-15] MEDS: hydrALAZINE 10 MG Tablet PO SCH ×3 (05:20→21:43)
[2018-12-15] MEDS: Isosorbide Mononitrate 30 MG ER 24HR Tablet (Imdur) PO SCH (06:03)
[2018-12-15 08:02] LABS: Hematocrit 26.4 % (39.0-51.0); Hemoglobin 8.8 gm/dL (13.0-17.0); Mean Corpuscular HGB Conc 33.4 % (32.0-36.0); Mean Corpuscular Hemoglobin 29.9 pg (27.0-34.0); Mean Corpuscular Volume 89.4 fL (80.0-100.0); Mean Platelet Volume 9.4 fL (7.0-11.0); Platelet Count 142 th/mm3 (150-450); Red Blood Count 2.96 mil/mm3 (4.50-5.90); Red Cell Distribution Width 15.6 % (11.6-17.2)
[2018-12-15 08:57] LABS: Calcium 7.6 mg/dL (8.5-10.1); Carbon Dioxide 28.6 meq/L (21.0-32.0)
[2018-12-15] MEDS ORDERED: Furosemide 40 MG Tablet PO SCH (09:15)
[2018-12-15] MEDS: Carvedilol 12.5 MG Tablet PO SCH ×2 (09:35→21:43)
--- NOTE | 2018-12-15 09:58 | P.DCO ---
- Physical Therapy Order: Evaluate and treat, Improve ambulation, Strength and gait training - Occupational Therapy Order: Evaluate and treat, Improve ADL - Home Health Nursing Order: Medical education, Signs/symptoms of disease process - Case Management Consult Case Management Consult-Home Health: Yes - Certification I have seen patient Renato Early on 12/15/18. My clinical findings support the need for the requested home health care services because: Limited mobility due to disease progression, Patient has SOB, Deconditioned with increased weakness, High risk of falls I certify that my clinical findings support that this patient is homebound because: Hx COPD - exertion dyspnea/weakness, Unsteady gait/balance
--- NOTE | 2018-12-15 11:26 | P.PNFP ---
Subjective Interval history: Patient was seen and evaluated this morning. He reports feeling well but is experiencing some shortness of breath and lower extremity edema. He denies chest pain, nausea, vomiting, diarrhea and constipation. He is refusing colonoscopy this morning. He has been told that once intubated, he may never be extubated due to his underlying COPD. Patient understands that he is still bleeding (Hgb downtrending) but would rather receive additional units of blood than undergo a procedure from which he may never wake up from. Risks and benefits of a colonoscopy as well as blood transfusions discussed at length. Patient also refusing SNF placement. He would like to go home. Case management consulted for home health services. All questions were answered. <Rema Wang - 12/15/18 13:48> Results - Labs Result diagrams: 12/15/18 07:15 12/15/18 07:15 <Fer Moe - 12/15/18 18:41> Abnormal lab results 12/14/18 12/15/18 12/15/18 Range/Units 22:28 07:15 07:15 RBC 2.96 L (4.50-5.90) mil/mm3 Hgb 9.4 L 8.8 L (13.0-17.0) gm/dL Hct 28.0 L 26.4 L (39.0-51.0) % Plt Count 142 L (150-450) th/mm3 Sodium 149 H (136-145) meq/L Chloride 112 H (98-107) meq/L BUN 50 H (7-18) mg/dL Creatinine 1.89 H (0.60-1.30) mg/dL Estimated GFR 34 L (>89) mL/min Random Glucose 130 H (74-106) mg/dL Calcium 7.6 L (8.5-10.1) mg/dL Short CBC 12/14/18 12/15/18 Range/Units 22:28 07:15 WBC 11.0 (4.0-11.0) th/mm3 Hgb 9.4 L 8.8 L (13.0-17.0) gm/dL Hct 28.0 L 26.4 L (39.0-51.0) % Plt Count 142 L (150-450) th/mm3 BMP 12/15/18 07:15 Sodium 149 H Potassium 4.0 Chloride 112 H Carbon Dioxide 28.6 BUN 50 H Creatinine 1.89 H Calcium 7.6 L <Fer Moe K - 12/15/18 18:41> Abnormal lab results 12/14/18 12/14/18 12/14/18 Range/Units 12:43 17:16 22:28 RBC (4.50-5.90) mil/mm3 Hgb 9.9 L 9.7 L 9.4 L (13.0-17.0) gm/dL Hct 29.2 L 27.8 L 28.0 L (39.0-51.0) % Plt Count (150-450) th/mm3 Sodium (136-145) meq/L Chloride (98-107) meq/L BUN (7-18) mg/dL Creatinine (0.60-1.30) mg/dL Estimated GFR (>89) mL/min Random Glucose (74-106) mg/dL Calcium (8.5-10.1) mg/dL 12/15/18 12/15/18 Range/Units 07:15 07:15 RBC 2.96 L (4.50-5.90) mil/mm3 Hgb 8.8 L (13.0-17.0) gm/dL Hct 26.4 L (39.0-51.0) % Plt Count 142 L (150-450) th/mm3 Sodium 149 H (136-145) meq/L Chloride 112 H (98-107) meq/L BUN 50 H (7-18) mg/dL Creatinine 1.89 H (0.60-1.30) mg/dL Estimated GFR 34 L (>89) mL/min Random Glucose 130 H (74-106) mg/dL Calcium 7.6 L (8.5-10.1) mg/dL Short CBC 12/14/18 12/14/18 12/14/18 Range/Units 12:43 17:16 22:28 WBC (4.0-11.0) th/mm3 Hgb 9.9 L 9.7 L 9.4 L (13.0-17.0) gm/dL Hct 29.2 L 27.8 L 28.0 L (39.0-51.0) % Plt Count (150-450) th/mm3 12/15/18 Range/Units 07:15 WBC 11.0 (4.0-11.0) th/mm3 Hgb 8.8 L (13.0-17.0) gm/dL Hct 26.4 L (39.0-51.0) % Plt Count 142 L (150-450) th/mm3 BMP 12/15/18 07:15 Sodium 149 H Potassium 4.0 Chloride 112 H Carbon Dioxide 28.6 BUN 50 H Creatinine 1.89 H Calcium 7.6 L <Labell Rema Bah - 12/15/18 11:26> Physical Exam Vital signs: Vital Signs 12/14/18 20:00 12/15/18 00:00 12/15/18 05:52 Temperature 97.8 F 97.8 F 97.8 F Pulse Rate 78 76 69 Respiratory Rate 18 18 18 Blood Pressure 156/67 H 139/64 121/59 L Pulse Oximetry 96 93 L 93 L 12/15/18 06:04 12/15/18 08:00 12/15/18 08:48 Temperature 98.1 F Pulse Rate 71 Respiratory Rate 16 16 Blood Pressure 122/58 L Pulse Oximetry 91 L 90 L 12/15/18 12:00 12/15/18 16:00 12/15/18 18:00 Temperature 97.5 F L 98.0 F Pulse Rate 60 82 71 Respiratory Rate 16 16 20 Blood Pressure 117/58 L 141/64 H Pulse Oximetry 90 L 90 L Intake & Output 12/14/18 12/15/18 12/15/18 18:59 06:59 18:59 Intake Total 1417.5 / 1417.5 480 / 480 Output Total 125 / 125 1200 / 1200 150 / 150 Balance 1292.5 / 1292.5 -720 / -720 -150 / -150 Intake: IV 1417.5 / 1417.5 SandoSTATIN Inj 500 MCG In NS 560.9 / 560.9 Inj 500 ML @ 50 MCG/HR 50.05 mls/hr IV.CONT .Q10H MOMO Rx#: [id number] Protonix Inj 80 MG In NS Inj 112.6 / 112.6 100 ML @ 10 mls/hr IV.CONT CONT MOMO Rx#:[id number] NS Inj 1,000 ML @ 125 mls/hr IV 744 / 744 .CONT .Q8H MOMO Rx#:[id number] Oral 480 / 480 Output: Urine 125 / 125 1200 / 1200 150 / 150 Other: Date of Last Bowel Movement 12/04/18 12/14/18 12/14/18 <Fer Moe - 12/15/18 18:41> Vital Signs 12/14/18 12:00 12/14/18 16:00 12/14/18 20:00 Temperature 98.0 F 97.6 F 97.8 F Pulse Rate 86 84 78 Respiratory Rate 19 19 18 Blood Pressure 155/70 H 148/65 H 156/67 H Pulse Oximetry 90 L 90 L 96 12/15/18 00:00 12/15/18 05:52 12/15/18 06:04 Temperature 97.8 F 97.8 F Pulse Rate 76 69 Respiratory Rate 18 18 16 Blood Pressure 139/64 121/59 L Pulse Oximetry 93 L 93 L 12/15/18 08:00 12/15/18 08:48 Temperature 98.1 F Pulse Rate 71 Respiratory Rate 16 Blood Pressure 122/58 L Pulse Oximetry 91 L 90 L Intake & Output 12/14/18 12/15/18 12/15/18 18:59 06:59 18:59 Intake Total 1417.5 / 1417.5 480 / 480 Output Total 125 / 125 1200 / 1200 Balance 1292.5 / 1292.5 -720 / -720 Intake: IV 1417.5 / 1417.5 SandoSTATIN Inj 500 MCG In NS 560.9 / 560.9 Inj 500 ML @ 50 MCG/HR 50.05 mls/hr IV.CONT .Q10H MOMO Rx#: [id number] Protonix Inj 80 MG In NS Inj 112.6 / 112.6 100 ML @ 10 mls/hr IV.CONT CONT MOMO Rx#:[id number] NS Inj 1,000 ML @ 125 mls/hr IV 744 / 744 .CONT .Q8H MOMO Rx#:[id number] Oral 480 / 480 Output: Urine 125 / 125 1200 / 1200 Other: Date of Last Bowel Movement 12/04/18 12/14/18 <Rema Wang - 12/15/18 11:26> Narrative: GENERAL: 83-year-old, well nourished male, laying down comfortably in bed. In no acute distress. SKIN: Warm and dry. Mild skin breakdown on bilateral anterior lower extremity, chronic per patient. Chronic ecchymosis of bilateral forearms. HEAD: Atraumatic. Normocephalic. ENT: No nasal bleeding or discharge. Airway patent. CARDIOVASCULAR: Regular rate and rhythm. No murmur. RESPIRATORY: No accessory muscle use but visibly out of breath. Clear to auscultation anteriorly, equal breath sounds. GASTROINTESTINAL: Abdomen soft, nondistended. Mild diffuse tenderness to palpation. No guarding or rebound. MUSCULOSKELETAL: 2+ pitting edema of bilateral lower extremities to knee. No obvious deformities. No calf tenderness. NEUROLOGICAL: Awake and alert. No obvious cranial nerve deficits. Normal speech. PSYCHIATRIC: Appropriate mood and affect; insight and judgment normal. <Rema Wang - 12/15/18 13:48> Assessment and Plan - Assessment (1) Acute GI bleeding Code(s): K92.2 - Gastrointestinal hemorrhage, unspecified Status: Acute (2) Diverticulosis Code(s): K57.90 - Diverticulosis of intestine, part unspecified, without perforation or abscess without bleeding Status: Acute (3) Diverticulitis Code(s): K57.92 - Diverticulitis of intestine, part unspecified, without perforation or abscess without bleeding Status: Acute (4) Anemia Code(s): D64.9 - Anemia, unspecified Status: Acute (5) Renal insufficiency Code(s): N28.9 - Disorder of kidney and ureter, unspecified Status: Acute (6) COPD (chronic obstructive pulmonary disease) Code(s): J44.9 - Chronic obstructive pulmonary disease, unspecified Status: Acute (7) Hypertension Code(s): I10 - Essential (primary) hypertension Status: Acute (8) Nutrition, metabolism, and development symptoms Code(s): R63.8 - Other symptoms and signs concerning food and fluid intake Status: Acute (9) DVT prophylaxis Status: Acute <Fer Moe Keshav - 12/15/18 18:41> (1) Acute GI bleeding Code(s): K92.2 - Gastrointestinal hemorrhage, unspecified Status: Acute Plan: s/p 3 units of PRBCs. Hgb downtrending; 8.8 today. Anemia likely secondary to GI bleed. Hemoccult positive. EGD no active bleed identified. Nuclear medicine bleeding scan negative. Patient refusing colonoscopy 12/15/18. Abdomen/Pelvis CT 12/13/18: 1. Diverticulosis of the descending and sigmoid colon with minimal stranding in the region of the distal descending colon suggesting a mild degree of diverticulitis. No perforation or abscess. 2. Abdominal aortic aneurysm measures 3.5 cm. 3. Status post cholecystectomy. 4. Bilateral renal low-density likely cyst. 5. 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 GI consulted; appreciate recommendations. Continue Augmentin 875/125mg PO q8hr. Protonix 40mg PO daily. Avoid NSAIDs. Hold ASA. Monitor H&H at 18:00. Transfuse 1 unit of PRBCs with Hgb <8. (2) Diverticulosis Code(s): K57.90 - Diverticulosis of intestine, part unspecified, without perforation or abscess without bleeding Status: Acute Plan: See plan above. (3) Diverticulitis Code(s): K57.92 - Diverticulitis of intestine, part unspecified, without perforation or abscess without bleeding Status: Acute Plan: See plan above. (4) Anemia Code(s): D64.9 - Anemia, unspecified Status: Acute Plan: See plan above. (5) Renal insufficiency Code(s): N28.9 - Disorder of kidney and ureter, unspecified Status: Acute Plan: Stable. Cr 1.89. Monitor. (6) COPD (chronic obstructive pulmonary disease) Code(s): J44.9 - Chronic obstructive pulmonary disease, unspecified Status: Acute Plan: Patient with history of COPD, on continuous O2 3L NC at home. Patient at his baseline but with some shortness of breath today. Albuterol breathing treatment q6hr PRN shortness of breath. Lasix 40mg PO ONCE this a.m. Plan for Lasix 40mg IV this afternoon. Restart home Lasix 40mg PO BID tomorrow. (7) Hypertension Code(s): I10 - Essential (primary) hypertension Status: Acute Plan: Patient with history of hypertension. Restart home BP meds. (8) Nutrition, metabolism, and development symptoms Code(s): R63.8 - Other symptoms and signs concerning food and fluid intake Status: Acute Plan: Fluids: Tolerates PO. Avoid IV fluids. Nutrition: Cardiac diet. Electrolytes: Monitor and replete as necessary. (9) DVT prophylaxis Status: Acute Plan: SCDs and compression hose. Pharmacologic prophylaxis contraindicated due to active GI bleed. <Labell R2,Rema - 12/15/18 13:37> - Assessment and Plan Discharge Planning: Pending GI clearance. Hopefully tomorrow. <Rema Wang - 12/15/18 13:48> - Attending Attestation The exam, history, and the medical decision-making described in the above note were completed with the assistance of the resident physician. I reviewed and agree with the findings presented. I attest that I had a [id number] encounter with the patient on the same day, and personally performed and documented my assessment and findings in the medical record. he feels overall better but does notice he is becoming more edematous and requiring more that his home O2. new acute on chronic resp failure: 2/2 mild decompensation of his CHF 2/2 IVF and blood product admin while diuretics held Will give IV diuretics today and then restart home regimen Hgb relatively stable but trending down slowly. refusing colonoscopy. GI has been notified. Will keep to trend Hgb here and treat his CHF. if HGb remains stable and is on home O2 could potentially go home with HH per his wishes in next day or two if he doesnt want intervention <Fer Moe - 12/15/18 18:41> <Shamarrenee Flaquito Bahin - Last Filed: 12/15/18 13:37> (2) Diverticulosis Qualifiers: Diverticulosis bleeding: diverticulosis with bleeding <Fer Moe - Last Filed: 12/15/18 18:41> (2) Diverticulosis Qualifiers: Diverticulosis bleeding: diverticulosis with bleeding <Rema Wang Last Filed: 12/15/18 13:37> (2) Diverticulosis Qualifiers: Diverticulosis bleeding: diverticulosis with bleeding <Fer Moe - Last Filed: 12/15/18 18:41> (2) Diverticulosis Qualifiers: Diverticulosis bleeding: diverticulosis with bleeding
[2018-12-15 20:18] LABS: Hematocrit 26.5 % (39.0-51.0); Hemoglobin 8.9 gm/dL (13.0-17.0)
--- NOTE | 2018-12-15 23:13 | P.PNGI ---
Subjective Interval history: Patient laying in bed head refused earlier the colonoscopy he tells me he is afraid that he may get intubated and may not be able to be extubated no blood or bleeding today Physical Exam Vital signs: Vital Signs 12/15/18 00:00 12/15/18 05:52 12/15/18 06:04 Temperature 97.8 F 97.8 F Pulse Rate 76 69 Respiratory Rate 18 18 16 Blood Pressure 139/64 121/59 L Pulse Oximetry 93 L 93 L 12/15/18 08:00 12/15/18 08:48 12/15/18 09:00 Temperature 98.1 F Pulse Rate 71 69 Respiratory Rate 16 Blood Pressure 122/58 L Pulse Oximetry 91 L 90 L 12/15/18 12:00 12/15/18 16:00 12/15/18 18:00 Temperature 97.5 F L 98.0 F Pulse Rate 60 82 71 Respiratory Rate 16 16 20 Blood Pressure 117/58 L 141/64 H Pulse Oximetry 90 L 90 L 12/15/18 20:00 Temperature 97.2 F L Pulse Rate 71 Respiratory Rate 18 Blood Pressure 155/67 H Pulse Oximetry 93 L Intake & Output 12/15/18 12/15/18 12/16/18 06:59 18:59 06:59 Intake Total 480 / 480 Output Total 1200 / 1200 150 / 150 Balance -720 / -720 -150 / -150 Intake: Oral 480 / 480 Output: Urine 1200 / 1200 150 / 150 Other: Date of Last Bowel Movement 12/14/18 12/15/18 - Constitutional no acute distress - Routine HEENT Exam Head: Present: normocephalic Eye: Present: EOMI ENT: Present: mucous membranes moist - Routine Neck Exam Present: supple - Routine Respiratory Exam Present: CTA bilaterally - Routine Cardiovascular Exam Present: RRR - Routine Abdominal Exam Present: soft, normoactive bowel sounds. Absent: tenderness, distended, rebound - Routine Extremities Exam Absent: cyanosis, clubbing Results - Labs CBC & Chem 7: 12/15/18 19:29 12/15/18 07:15 Laboratory Results - last 24 hr 12/15/18 12/15/18 12/15/18 07:15 07:15 19:29 WBC 11.0 RBC 2.96 L Hgb 8.8 L 8.9 L Hct 26.4 L 26.5 L MCV 89.4 MCH 29.9 MCHC 33.4 RDW 15.6 Plt Count 142 L MPV 9.4 Sodium 149 H Potassium 4.0 Chloride 112 H Carbon Dioxide 28.6 Anion Gap 8 BUN 50 H Creatinine 1.89 H Estimated GFR 34 L Random Glucose 130 H Calcium 7.6 L Assessment and Plan - Plan This patient is a pleasant 83-year-old male with past medical history significant for CVA with left-sided weakness, hypertension, hyperlipidemia, coronary artery disease COPD. Surgical history significant for CABG x2 in 1994 and 2001 and abdominal aortic aneurysm repair in 2001. Patient presented to [facility] emergency room with reports of shortness of breath and dizziness. Patient endorsed black tarry stools onset 2-3 days ago. Patient endorses generalized weakness with shortness of breath, denies any abdominal pain or vomiting. Patient does admit to having nausea over the last 3-4 days. States last EGD with colonoscopy done estimated 5 years ago no significant findings. Prior colonoscopy 10 years ago revealed polyps that were benign per patient. Patient denies use of NSAIDs other than baby aspirin once daily. States he takes Tylenol as needed for arthritic pain. Patient denies use of tobacco or alcohol products. Upon arrival to ER, hemoglobin noted to be 5.4 hematocrit 16.6. Patient has been placed on a pantoprazole as well as octreotide drip. Patient currently being transfused with #1 of 3 ordered units of packed RBCs. Our service has been consulted to evaluate patient for GI bleeding. Melena stools GI bleed Patient presents with onset of dizziness with black tarry stools 2-3 days ago. Patient endorses nausea with no vomiting. Last EGD and colonoscopy as noted above. Patient denies hematemesis or hematochezia. Denies heartburn or symptoms of acid reflux. --Hemoglobin 5.4 hematocrit 16.6 on arrival. Patient currently being transfused with 1 of 3 ordered units of packed RBCs. 12/13/2018 CT abdomen and pelvis: Diverticulosis of the descending and sigmoid colon with minimal stranding in the region of the distal descending colon suggesting a mild degree of diverticulitis. No perforation or abscess. Abdominal aortic aneurysm measures 3.5 cm. Status post cholecystectomy. Bilateral renal low-density likely cyst. 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 daily -Monitor hemoglobin and hematocrit -Avoid anticoagulants and NSAIDs -Monitor for active bleeding -Supportive care
[2018-12-16] MEDS: Acetaminophen 325 MG Tablet PO PRN ×2 (04:17→12:49)
[2018-12-16] MEDS: hydrALAZINE 10 MG Tablet PO SCH ×3 (06:08→21:30)
[2018-12-16] MEDS: Amoxicillin/Clavulanate 875/125 MG Tablet PO SCH ×3 (06:08→21:30)
[2018-12-16] MEDS: Isosorbide Mononitrate 30 MG ER 24HR Tablet (Imdur) PO SCH (06:08)
[2018-12-16 07:04] LABS: Hematocrit 25.1 % (39.0-51.0); Hemoglobin 8.4 gm/dL (13.0-17.0); Mean Corpuscular HGB Conc 33.4 % (32.0-36.0); Mean Corpuscular Hemoglobin 30.2 pg (27.0-34.0); Mean Corpuscular Volume 90.3 fL (80.0-100.0); Mean Platelet Volume 9.4 fL (7.0-11.0); Platelet Count 132 th/mm3 (150-450); Red Blood Count 2.78 mil/mm3 (4.50-5.90); Red Cell Distribution Width 15.8 % (11.6-17.2)
[2018-12-16 07:25] LABS: Calcium 7.6 mg/dL (8.5-10.1); Carbon Dioxide 31.3 meq/L (21.0-32.0); Potassium 3.6 meq/L (3.5-5.1)
[2018-12-16] MEDS: Carvedilol 12.5 MG Tablet PO SCH ×2 (08:24→21:30)
[2018-12-16] MEDS: Furosemide 40 MG Tablet PO SCH ×2 (08:24→21:30)
[2018-12-16] MEDS ORDERED: Furosemide 40 MG Tablet PO SCH (09:00)
--- NOTE | 2018-12-16 09:24 | P.HPFP ---
History of Present Illness Primary Care Physician: Isrrael Gill Chief Complaint: SOB, fatigue, black stools History of Present Illness: 83 year old male with hx of hypertension, hyperlipidemia, CAD status post CABG and COPD presents to the hospital for black tarry stools noted 3-4 days ago. Patient states he has passed a total of 2 to 3 black stools. He denies having anything like this before in the past and is not on iron supplementation. He denies seeing bright red blood in his stool. He is mildly nauseated and felt faint this morning, but denies vomiting. After receiving fluids in the ED, he is no longer experiencing lightheadedness. He admits to abdominal "soreness" in the lower quadrants for the past couple of weeks. He is currently on aspirin , but is not on any other blood thinners. Denies chronic NSAID use. He also notes increasing fatigue for the past couple of weeks. Denies any alcohol use, or history of liver problems. He does admit to history of bleeding hemorrhoids and is currently on a PPI for reflux, however, denies any other GI issues. States that his last colonoscopy was performed within the last 5 years, which was normal. Denies fevers, chills, unintentional weight loss, other notable bleeding, headache, syncopal, chest pain, or recent recurrent falls. Patient also notes slightly increased shortness of breath from baseline, which he attributes to his COPD. He is normally on O2 3L NC continuously throughout the day, and uses albuterol nebulizing treatments and steroid inhaler every day. No sick contacts. 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 Quit smoking in 1994. Drink EOTH rarely. Admits to drinking 1 beer every couple months. Denies illicit drug use PCP: Recently changed to a new physician in [place]. Used to see Dr. De Leon. Also sees a taxicab dispatcher, urologist and caretaker. - Diagnosis (1) Acute GI bleeding (2) Diverticulosis (3) Diverticulitis (4) Anemia (5) Renal insufficiency (6) COPD (chronic obstructive pulmonary disease) (7) Hypertension (8) Nutrition, metabolism, and development symptoms (9) DVT prophylaxis Inpatient Certification: I certify that the inpatient services were ordered in accordance with Medicare regulations governing the order. This includes certification that hospital inpatient services are reasonable and necessary and in the case of services not specified as inpatient-only under 42 CFR 419.22(n), that they are appropriately provided as inpatient services in accordance to with the 2-midnight benchmark under 43 CFR 412.3(e) Estimated Total Length of Stay (Days): 3 Plans for Post Hospital Care: Not yet determined PMFSH - History History Provided By: Patient - Medical History Medical History: Medical History (Last Reviewed 12/14/18 @ 08:37 by Sapna Sher) CAD (coronary artery disease) Hypercholesteremia Hypertension - Surgical History Surgical History: Surgical History (Last Reviewed 12/14/18 @ 08:37 by Sapna Sher) History of cholecystectomy Hx of CABG S/P AAA (abdominal aortic aneurysm) repair - Tobacco History Smoking Status: Former smoker - Alcohol History How Often Do You Have a Drink Containing Alcohol: Never - Substance Use History Substance History: No History of Abuse - Travel History Recent Travel in the [place] Within the Last 8 Weeks: No Recent Travel Out of the Country Within the Last 8 Weeks: No - Immunization History Tetanus Immunization: Unsure Medications and Allergies Active Medications: Active Medications Acetaminophen (Tylenol) 650 mg PO Q4H PRN PRN Reason: Temp > 100.4 Last Admin: 12/16/18 04:17 Dose: 650 mg Albuterol (Albuterol Neb (Prn)) 2.5 mg NEB Q4HR NEB PRN PRN Reason: SHORTNESS OF BREATH Amoxicillin/Clavulanate Potassium (Augmentin 875/125 Mg) 1 tab PO Q8HR [facility] Last Admin: 12/16/18 06:08 Dose: 1 tab Atorvastatin Calcium (Lipitor) 40 mg PO DAILY [facility] Last Admin: 12/16/18 08:24 Dose: 40 mg Carvedilol (Coreg) 25 mg PO BID [facility] Last Admin: 12/16/18 08:24 Dose: 25 mg Furosemide (Lasix) 40 mg PO BID [facility] Last Admin: 12/16/18 08:24 Dose: 40 mg Hydralazine HCl (Apresoline) 10 mg PO Q8HR [facility] Last Admin: 12/16/18 06:08 Dose: 10 mg Isosorbide Mononitrate (Imdur) 30 mg PO DAILY@0700 [facility] Last Admin: 12/16/18 06:08 Dose: 30 mg Niacin (Slo-Niacin) 500 mg PO DAILY [facility] Last Admin: 12/16/18 08:25 Dose: 500 mg Ondansetron HCl (Zofran Inj) 4 mg IV.PUSH Q6H PRN PRN Reason: NAUSEA OR VOMITING Last Admin: 12/14/18 21:08 Dose: 4 mg Pantoprazole Sodium (Protonix) 40 mg PO DAILY [facility] Last Admin: 12/16/18 08:24 Dose: 40 mg Senna/Docusate Sodium (Herminia-Colace) 1 tab PO BID PRN PRN Reason: CONSTIPATION Sodium Chloride (Ns Flush) 2 ml IV.FLUSH BID [facility] Last Admin: 12/16/18 08:25 Dose: 2 ml Sodium Chloride (Ns Flush) 2 ml IV.FLUSH PRN PRN PRN Reason: FLUSH AFTER USING IV ACCESS Tamsulosin HCl (Flomax) 0.4 mg PO DAILY [facility] Last Admin: 12/16/18 08:24 Dose: 0.4 mg Allergies Allergy/AdvReac Type Severity Reaction Status Date / Time No Known Allergies Allergy Verified 12/13/18 10:17 Home Medications Medication Instructions Recorded Confirmed Type albuterol sulfate 2.5 mg INHALATION Q6H 12/13/18 12/13/18 History aspirin 81 mg PO DAILY 12/13/18 12/13/18 History atorvastatin 40 mg PO DAILY 12/13/18 12/13/18 History carvedilol 25 mg PO BID 12/13/18 12/13/18 History furosemide 40 mg PO BID 12/13/18 12/13/18 History hydralazine 10 mg PO Q8H 12/13/18 12/13/18 History isosorbide mononitrate 30 mg PO DAILY 12/13/18 12/13/18 History niacin 500 mg PO DAILY 12/13/18 12/13/18 History olodaterol [Striverdi Respimat] 2 inh INHALATION DAILY 12/13/18 12/13/18 History pantoprazole 40 mg PO DAILY 12/13/18 12/13/18 History Exam Vital signs: Vital Signs 12/15/18 12:00 12/15/18 16:00 12/15/18 18:00 Temperature 97.5 F L 98.0 F Pulse Rate 60 82 71 Respiratory Rate 16 16 20 Blood Pressure 117/58 L 141/64 H Pulse Oximetry 90 L 90 L 12/15/18 20:00 12/15/18 20:05 12/16/18 00:00 Temperature 97.2 F L 97.3 F L Pulse Rate 71 66 66 Respiratory Rate 18 20 Blood Pressure 155/67 H 145/66 H Pulse Oximetry 93 L 97 12/16/18 04:00 12/16/18 08:00 Temperature 97.9 F 97.6 F Pulse Rate 69 80 Respiratory Rate 17 16 Blood Pressure 142/65 H 141/63 H Pulse Oximetry 97 90 L Intake & Output 12/15/18 12/16/18 12/16/18 18:59 06:59 18:59 Intake Total 840 / 840 Output Total 150 / 150 750 / 750 Balance -150 / -150 90 / 90 Weight 73.3 kg Intake: Oral 840 / 840 Output: Urine 150 / 150 750 / 750 Other: Date of Last Bowel Movement 12/15/18 # Bowel Movements 0 Results - Labs Result diagrams: 12/16/18 05:52 12/16/18 05:52 Abnormal lab results 12/15/18 12/16/18 12/16/18 Range/Units 19:29 05:52 05:52 RBC 2.78 L (4.50-5.90) mil/mm3 Hgb 8.9 L 8.4 L (13.0-17.0) gm/dL Hct 26.5 L 25.1 L (39.0-51.0) % Plt Count 132 L (150-450) th/mm3 Sodium 149 H (136-145) meq/L Chloride 111 H (98-107) meq/L BUN 52 H (7-18) mg/dL Creatinine 2.02 H (0.60-1.30) mg/dL Estimated GFR 32 L (>89) mL/min Random Glucose 136 H (74-106) mg/dL Calcium 7.6 L (8.5-10.1) mg/dL Short CBC 12/15/18 12/16/18 Range/Units 19:29 05:52 WBC 10.0 (4.0-11.0) th/mm3 Hgb 8.9 L 8.4 L (13.0-17.0) gm/dL Hct 26.5 L 25.1 L (39.0-51.0) % Plt Count 132 L (150-450) th/mm3 [facility] 12/16/18 05:52 Sodium 149 H Potassium 3.6 Chloride 111 H Carbon Dioxide 31.3 BUN 52 H Creatinine 2.02 H Calcium 7.6 L Caprini VTE Risk Assessment Caprini VTE Risk Assessment: Moderate/High Risk (score >= 2) Caprini Risk Assessment Model: Point Value = 1 Point Value = 2 Point Value = 3 Point Value = 5 Age 41-60 Minor surgery BMI > 25 kg/m2 Swollen legs Varicose veins or History of unexplained or recurrent spontaneous Oral contraceptives or hormone replacement Sepsis (< 1 month) Serious lung disease, including pneumonia (< 1 month) Abnormal pulmonary function Acute myocardial infarction Congestive heart failure (< 1 month) History of inflammatory bowel disease Medical patient at bed rest Age 61-74 Arthroscopic surgery Major open surgery (> 45 min) Laparoscopic surgery (> 45 min) Malignancy Confined to bed (> 72 hours) Immobilizing plaster cast Central venous access Age >= 75 History of VTE Family history of VTE Factor V Leiden Prothrombin [id number] Lupus anticoagulant Anticardiolipin antibodies Elevated serum homocysteine Heparin-induced thrombocytopenia Other congenital or acquired thrombophilia Stroke (< 1 month) Elective arthroplasty Hip, pelvis, or leg fracture Acute spinal cord injury (< 1 month) Prophylaxis Regimen: Total Risk Factor Score Risk Level Prophylaxis Regimen 0-1 Low Early ambulation 2 Moderate Order ONE of the following: *Sequential Compression Device (SCD) *Heparin 5000 units SQ BID 3-4 Higher Order ONE of the following medications: *Heparin 5000 units SQ TID *Enoxaparin/Lovenox 40 mg SQ daily (WT < 150 kg, CrCl > 30 mL/min) *Enoxaparin/Lovenox 30 mg SQ daily (WT < 150 kg, CrCl > 10-29 mL/min) *Enoxaparin/Lovenox 30 mg SQ BID (WT < 150 kg, CrCl > 30 mL/min) AND/OR *Sequential Compression Device (SCD) 5 or more Highest Order ONE of the following medications: *Heparin 5000 units SQ TID (Preferred with Epidurals) *Enoxaparin/Lovenox 40 mg SQ daily (WT < 150 kg, CrCl > 30 mL/min) *Enoxaparin/Lovenox 30 mg SQ daily (WT < 150 kg, CrCl > 10-29 mL/min) *Enoxaparin/Lovenox 30 mg SQ BID (WT < 150 kg, CrCl > 30 mL/min) AND *Sequential Compression Device (SCD) Assessment and Plan - Assessment (1) Acute GI bleeding Code(s): K92.2 - Gastrointestinal hemorrhage, unspecified Status: Acute Plan: s/p 3 units of PRBCs. Hgb downtrending; 8.8 today. Anemia likely secondary to GI bleed. Hemoccult positive. EGD no active bleed identified. Nuclear medicine bleeding scan negative. Patient refusing colonoscopy 12/15/18. Abdomen/Pelvis CT 12/13/18: 1. Diverticulosis of the descending and sigmoid colon with minimal stranding in the region of the distal descending colon suggesting a mild degree of diverticulitis. No perforation or abscess. 2. Abdominal aortic aneurysm measures 3.5 cm. 3. Status post cholecystectomy. 4. Bilateral renal low-density likely cyst. 5. 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 GI consulted; appreciate recommendations. Continue Augmentin 875/125mg PO q8hr. Protonix 40mg PO daily. Avoid NSAIDs. Hold ASA. Monitor H&H at 18:00. Transfuse 1 unit of PRBCs with Hgb <8. (2) Diverticulosis Code(s): K57.90 - Diverticulosis of intestine, part unspecified, without perforation or abscess without bleeding Status: Acute Plan: See plan above. (3) Diverticulitis Code(s): K57.92 - Diverticulitis of intestine, part unspecified, without perforation or abscess without bleeding Status: Acute Plan: See plan above. (4) Anemia Code(s): D64.9 - Anemia, unspecified Status: Acute Plan: See plan above. (5) Renal insufficiency Code(s): N28.9 - Disorder of kidney and ureter, unspecified Status: Acute Plan: Stable. Cr 1.89. Monitor. (6) COPD (chronic obstructive pulmonary disease) Code(s): J44.9 - Chronic obstructive pulmonary disease, unspecified Status: Acute Plan: Patient with history of COPD, on continuous O2 3L NC at home. Patient at his baseline but with some shortness of breath today. Albuterol breathing treatment q6hr PRN shortness of breath. Lasix 40mg PO ONCE this a.m. Plan for Lasix 40mg IV this afternoon. Restart home Lasix 40mg PO BID tomorrow. (7) Hypertension Code(s): I10 - Essential (primary) hypertension Status: Acute Plan: Patient with history of hypertension. Restart home BP meds. (8) Nutrition, metabolism, and development symptoms Code(s): R63.8 - Other symptoms and signs concerning food and fluid intake Status: Acute Plan: Fluids: Tolerates PO. Avoid IV fluids. Nutrition: Cardiac diet. Electrolytes: Monitor and replete as necessary. (9) DVT prophylaxis Status: Acute Plan: SCDs and compression hose. Pharmacologic prophylaxis contraindicated due to active GI bleed. - Assessment and Plan Severe anemia 2/2 GI bleed PUD vs. acute gastritis vs. esophageal varies vs. diverticulosis vs. acute mesenteric ischemia vs. malignancy vs. hemorrhoids. H&H 5.4/16.6 CT abd without contrast, due to JC, ordered in ED showed: 1. Diverticulosis of the descending and sigmoid colon with minimal stranding in the region of the distal descending colon suggesting a mild degree of diverticulitis. No perforation or abscess. 2. Abdominal aortic aneurysm measures 3.5 cm. 3. Status post cholecystectomy. 4. Bilateral renal low-density likely cyst. 5. 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 -CMP showed AST/ALT WNL -Lipase and troponin within normal limits -Hemoccult positive -PT/INR WNL -Continuous cardiac telemetry due to patient's volume status, at risk for arrhythmias -Fluid resuscitation at IV NS at 100 mls/hr -3 units of PRBCs ordered with repeat H&H following completion of transfusion -Protonix drip 80 mg at 10 mls/hr initiated in ED -Avoid NSAIDs -Hold ASA and other blood thinners -GI consulted, appreciate further recommendation Renal insufficiency BUN/Cr 70/2.05 with eGFR 31 Likely acute on chronic renal insufficiency -Continue IVF as states above -Repeat CMP in AM COPD -On continuous O2 3L NC at home -Albuterol breathing tx every 6 hours as needed for shortness of breath Urinary retention -Bladder scan with straight catheterization as needed for urinary retention Hx of hyperlipidemia -Continue home atorvastatin in the AM Hx of HTN -Hold home medications FEN: Fluids: IV NS at 125 mls/hr Electrolytes: Continue to monitor and replete as needed. Diet: NPO DVT prophylaxis SCDs and compression hose dw Dr. Moe and LaBell (2) Diverticulosis Qualifiers: Diverticulosis bleeding: diverticulosis with bleeding
--- NOTE | 2018-12-16 10:27 | P.PNFP ---
Subjective Interval history: Patient seen examined this morning. Patient was seen and examined by GI yesterday, who recommended colonoscopy, however patient was concerned that he would "not wake up if intubated for the procedure". He has had 2 colonoscopies performed in the last year, for similar symptoms, once in hospital in [place], and nothing was found on the studies. Patient also had a low oxygen saturation earlier this morning, for which he was placed on simple mask. Patient states that he was very congested and unable to breathe through his nose, which is why receiving oxygen through the nasal cannula was working. His brought a nasal spray, which is not on formulary, however the nursing staff aware who will get the medication approved by pharmacy for administration. Spoke to GI, who state that, because of the patient's hesitation with performing colonoscopy and as he is not actively bleeding at present, would like to continue to monitor him for the next 24 hours in the hospital. If he continues to bleed, it will be necessary to perform a colonoscopy at that time. All questions answered. <Micki Villa B - 12/16/18 12:18> Results - Labs Result diagrams: 12/16/18 05:52 12/16/18 05:52 <Fer Moe - 12/16/18 13:23> Abnormal lab results 12/15/18 12/16/18 12/16/18 Range/Units 19:29 05:52 05:52 RBC 2.78 L (4.50-5.90) mil/mm3 Hgb 8.9 L 8.4 L (13.0-17.0) gm/dL Hct 26.5 L 25.1 L (39.0-51.0) % Plt Count 132 L (150-450) th/mm3 Sodium 149 H (136-145) meq/L Chloride 111 H (98-107) meq/L BUN 52 H (7-18) mg/dL Creatinine 2.02 H (0.60-1.30) mg/dL Estimated GFR 32 L (>89) mL/min Random Glucose 136 H (74-106) mg/dL Calcium 7.6 L (8.5-10.1) mg/dL Short CBC 12/15/18 12/16/18 Range/Units 19:29 05:52 WBC 10.0 (4.0-11.0) th/mm3 Hgb 8.9 L 8.4 L (13.0-17.0) gm/dL Hct 26.5 L 25.1 L (39.0-51.0) % Plt Count 132 L (150-450) th/mm3 [facility] 12/16/18 05:52 Sodium 149 H Potassium 3.6 Chloride 111 H Carbon Dioxide 31.3 BUN 52 H Creatinine 2.02 H Calcium 7.6 L <Fer Moe - 12/16/18 13:23> Abnormal lab results 12/15/18 12/16/18 12/16/18 Range/Units 19:29 05:52 05:52 RBC 2.78 L (4.50-5.90) mil/mm3 Hgb 8.9 L 8.4 L (13.0-17.0) gm/dL Hct 26.5 L 25.1 L (39.0-51.0) % Plt Count 132 L (150-450) th/mm3 Sodium 149 H (136-145) meq/L Chloride 111 H (98-107) meq/L BUN 52 H (7-18) mg/dL Creatinine 2.02 H (0.60-1.30) mg/dL Estimated GFR 32 L (>89) mL/min Random Glucose 136 H (74-106) mg/dL Calcium 7.6 L (8.5-10.1) mg/dL Short CBC 12/15/18 12/16/18 Range/Units 19:29 05:52 WBC 10.0 (4.0-11.0) th/mm3 Hgb 8.9 L 8.4 L (13.0-17.0) gm/dL Hct 26.5 L 25.1 L (39.0-51.0) % Plt Count 132 L (150-450) th/mm3 [facility] 12/16/18 05:52 Sodium 149 H Potassium 3.6 Chloride 111 H Carbon Dioxide 31.3 BUN 52 H Creatinine 2.02 H Calcium 7.6 L <Micki Villa - 12/16/18 10:27> Physical Exam Vital signs: Vital Signs 12/15/18 16:00 12/15/18 18:00 12/15/18 20:00 Temperature 98.0 F 97.2 F L Pulse Rate 82 71 71 Respiratory Rate 16 20 18 Blood Pressure 141/64 H 155/67 H Pulse Oximetry 90 L 93 L 12/15/18 20:05 12/16/18 00:00 12/16/18 04:00 Temperature 97.3 F L 97.9 F Pulse Rate 66 66 69 Respiratory Rate 20 17 Blood Pressure 145/66 H 142/65 H Pulse Oximetry 97 97 12/16/18 08:00 12/16/18 09:27 12/16/18 10:45 Temperature 97.6 F Pulse Rate 80 64 Respiratory Rate 16 18 Blood Pressure 141/63 H Pulse Oximetry 90 L 95 12/16/18 12:03 Temperature 97.2 F L Pulse Rate 75 Respiratory Rate 16 Blood Pressure 135/60 Pulse Oximetry 95 Intake & Output 12/15/18 12/16/18 12/16/18 18:59 06:59 18:59 Intake Total 840 / 840 Output Total 150 / 150 750 / 750 Balance -150 / -150 90 / 90 Weight 73.3 kg Intake: Oral 840 / 840 Output: Urine 150 / 150 750 / 750 Other: Date of Last Bowel Movement 12/15/18 # Bowel Movements 0 <Fer Moe - 12/16/18 13:23> Vital Signs 12/15/18 12:00 12/15/18 16:00 12/15/18 18:00 Temperature 97.5 F L 98.0 F Pulse Rate 60 82 71 Respiratory Rate 16 16 20 Blood Pressure 117/58 L 141/64 H Pulse Oximetry 90 L 90 L 12/15/18 20:00 12/15/18 20:05 12/16/18 00:00 Temperature 97.2 F L 97.3 F L Pulse Rate 71 66 66 Respiratory Rate 18 20 Blood Pressure 155/67 H 145/66 H Pulse Oximetry 93 L 97 12/16/18 04:00 12/16/18 08:00 12/16/18 09:27 Temperature 97.9 F 97.6 F Pulse Rate 69 80 Respiratory Rate 17 16 Blood Pressure 142/65 H 141/63 H Pulse Oximetry 97 90 L 95 Intake & Output 12/15/18 12/16/18 12/16/18 18:59 06:59 18:59 Intake Total 840 / 840 Output Total 150 / 150 750 / 750 Balance -150 / -150 90 / 90 Weight 73.3 kg Intake: Oral 840 / 840 Output: Urine 150 / 150 750 / 750 Other: Date of Last Bowel Movement 12/15/18 # Bowel Movements 0 <Micki Villa 12/16/18 10:27> Narrative: GENERAL: 83-year-old, well nourished male, laying down comfortably in bed. In no acute distress. SKIN: Warm and dry. Mild skin breakdown on bilateral anterior lower extremity, chronic per patient. Chronic ecchymosis of bilateral forearms. HEAD: Atraumatic. Normocephalic. ENT: No nasal bleeding or discharge. Airway patent. CARDIOVASCULAR: Regular rate and rhythm. No murmur. RESPIRATORY: No accessory muscle use but visibly out of breath. Clear to auscultation anteriorly, equal breath sounds. GASTROINTESTINAL: Abdomen soft, nondistended. Mild diffuse tenderness to palpation. No guarding or rebound. MUSCULOSKELETAL: 2+ pitting edema of bilateral lower extremities to knee. No obvious deformities. No calf tenderness. NEUROLOGICAL: Awake and alert. No obvious cranial nerve deficits. Normal speech. PSYCHIATRIC: Appropriate mood and affect; insight and judgment normal. <Micki Villa 12/16/18 12:18> Assessment and Plan - Assessment (1) Acute GI bleeding Code(s): K92.2 - Gastrointestinal hemorrhage, unspecified Status: Acute (2) Diverticulosis Code(s): K57.90 - Diverticulosis of intestine, part unspecified, without perforation or abscess without bleeding Status: Acute (3) Diverticulitis Code(s): K57.92 - Diverticulitis of intestine, part unspecified, without perforation or abscess without bleeding Status: Acute (4) Anemia Code(s): D64.9 - Anemia, unspecified Status: Acute (5) Renal insufficiency Code(s): N28.9 - Disorder of kidney and ureter, unspecified Status: Acute (6) COPD (chronic obstructive pulmonary disease) Code(s): J44.9 - Chronic obstructive pulmonary disease, unspecified Status: Acute (7) Hypertension Code(s): I10 - Essential (primary) hypertension Status: Acute (8) Nutrition, metabolism, and development symptoms Code(s): R63.8 - Other symptoms and signs concerning food and fluid intake Status: Acute (9) DVT prophylaxis Status: Acute <Fer Moe 12/16/18 13:23> (1) Acute GI bleeding Code(s): K92.2 - Gastrointestinal hemorrhage, unspecified Status: Acute Plan: s/p 3 units of PRBCs. Hgb stable, but shows slow downtrend, currently 8.4 Anemia likely secondary to GI bleed. Hemoccult positive. EGD no active bleed identified. Nuclear medicine bleeding scan negative. Patient refusing colonoscopy 12/15/18. Abdomen/Pelvis CT 12/13/18: 1. Diverticulosis of the descending and sigmoid colon with minimal stranding in the region of the distal descending colon suggesting a mild degree of diverticulitis. No perforation or abscess. 2. Abdominal aortic aneurysm measures 3.5 cm. 3. Status post cholecystectomy. 4. Bilateral renal low-density likely cyst. 5. 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 GI consulted: Who recommend colonoscopy, however patient is refusing at this point in time. They state that they will continue to monitor patient overnight, and if there are signs of any active bleeding and/or patient requires transfusion, colonoscopy will be necessary at that time. Continue Augmentin 875/125mg PO q8hr. Protonix 40mg PO daily. Avoid NSAIDs. Hold ASA. Monitor H&H at 18:00. Transfuse 1 unit of PRBCs with Hgb <8. (2) Diverticulosis Code(s): K57.90 - Diverticulosis of intestine, part unspecified, without perforation or abscess without bleeding Status: Acute Plan: See plan above (3) Diverticulitis Code(s): K57.92 - Diverticulitis of intestine, part unspecified, without perforation or abscess without bleeding Status: Acute Plan: See plan above (4) Anemia Code(s): D64.9 - Anemia, unspecified Status: Acute Plan: See plan above (5) Renal insufficiency Code(s): N28.9 - Disorder of kidney and ureter, unspecified Status: Acute Plan: Stable, Cr 2.02 Monitor. (6) COPD (chronic obstructive pulmonary disease) Code(s): J44.9 - Chronic obstructive pulmonary disease, unspecified Status: Acute Plan: Patient with history of COPD, on continuous O2 3L NC at home. Patient is increasing O2 need from baseline. Patient placed on simple mask at 10 L this morning due to desaturation. Patient given 1 albuterol treatment overnight and single dose of Lasix.. Albuterol breathing treatment q8hr scheduled, to be alternated with scheduled DuoNeb breathing treatment every 8 hours. Patient should be receiving breathing treatment every 4 hours. Restarted home Lasix 40mg PO BID today. (7) Hypertension Code(s): I10 - Essential (primary) hypertension Status: Acute Plan: History of hypertension, stable. Continue home blood pressure medications (8) Nutrition, metabolism, and development symptoms Code(s): R63.8 - Other symptoms and signs concerning food and fluid intake Status: Acute Plan: Fluids: Tolerate p.o., avoid IV fluids. Diet: Cardiac diet Electrodes: Monitor and replete as necessary. (9) DVT prophylaxis Status: Acute Plan: SCDs and compression hose. Pharmacologic prophylaxis contraindicated due to active GI bleed. <Micki Villa 12/16/18 12:19> - Assessment and Plan dw Dr. Moe <Micki Villa 12/16/18 12:25> Discharge Planning: Pending GI clearance. <Micki Villa 12/16/18 12:25> - Attending Attestation The exam, history, and the medical decision-making described in the above note were completed with the assistance of the resident physician. I reviewed and agree with the findings presented. I attest that I had a [id number] encounter with the patient on the same day, and personally performed and documented my assessment and findings in the medical record. had long discussion with him and re: r/b of colonoscopy. They have decided to pursue colonscopy tomorrow but they may ask for a DNI with their DNR beforehand after discussing with family a little more. they understand risks of intubation given underlying pulmonary status he looks like his breathing is a little labored but he is down to his home O2 and edema and crackles improved today after IV lasix. Hgb slowly downtrending. I am glad to have another day to medically optimize before colonoscopy adn will try scheduling duonebs today before hand. <Fer Moe - 12/16/18 13:23> <Micki Villa - Last Filed: 12/16/18 12:19> (2) Diverticulosis Qualifiers: Diverticulosis bleeding: diverticulosis with bleeding <Fer Moe Filed: 12/16/18 13:23> (2) Diverticulosis Qualifiers: Diverticulosis bleeding: diverticulosis with bleeding <Micki Villa [facility] Filed: 12/16/18 12:19> (2) Diverticulosis Qualifiers: Diverticulosis bleeding: diverticulosis with bleeding <Fer Moe Filed: 12/16/18 13:23> (2) Diverticulosis Qualifiers: Diverticulosis bleeding: diverticulosis with bleeding
[2018-12-16] MEDS ORDERED: PEG 3350/E-Lyte Soln 4000 ML Bottle PO ONE (15:15)
--- NOTE | 2018-12-16 15:19 | P.PNGI ---
Subjective Interval history: Patient seen and examined. Sitting up in chair. Taking nebulizer treatment, at bedside. Denies GI complaints. Denies abdominal pain, nausea or vomiting. No bowel movement so far today. No noted rectal bleeding so far today. Labs declining slightly, hemoglobin 8.4 and hematocrit 25.1. Platelets 132, INR 1.1. Patient states he and his have discussed it and decided to proceed with colonoscopy. He has eaten a small amount of solid food today but has been on clear liquids for several days and will resume clear liquid diet now. <Afshan Elena - Last Filed: 12/16/18 15:19> Physical Exam Vital signs: Vital Signs 12/15/18 16:00 12/15/18 18:00 12/15/18 20:00 Temperature 98.0 F 97.2 F L Pulse Rate 82 71 71 Respiratory Rate 16 20 18 Blood Pressure 141/64 H 155/67 H Pulse Oximetry 90 L 93 L 12/15/18 20:05 12/16/18 00:00 12/16/18 04:00 Temperature 97.3 F L 97.9 F Pulse Rate 66 66 69 Respiratory Rate 20 17 Blood Pressure 145/66 H 142/65 H Pulse Oximetry 97 97 12/16/18 08:00 12/16/18 09:27 12/16/18 10:45 Temperature 97.6 F Pulse Rate 80 64 Respiratory Rate 16 18 Blood Pressure 141/63 H Pulse Oximetry 90 L 95 12/16/18 12:03 12/16/18 14:59 Temperature 97.2 F L Pulse Rate 75 71 Respiratory Rate 16 16 Blood Pressure 135/60 Pulse Oximetry 95 95 Intake & Output 12/15/18 12/16/18 12/16/18 18:59 06:59 18:59 Intake Total 840 / 840 Output Total 150 / 150 750 / 750 Balance -150 / -150 90 / 90 Weight 73.3 kg Intake: Oral 840 / 840 Output: Urine 150 / 150 750 / 750 Other: Date of Last Bowel Movement 12/15/18 # Bowel Movements 0 <Afshan Elena - Last Filed: 12/16/18 15:19> Vital signs: Vital Signs 12/16/18 00:00 12/16/18 04:00 12/16/18 08:00 Temperature 97.3 F L 97.9 F 97.6 F Pulse Rate 66 69 80 Respiratory Rate 20 17 16 Blood Pressure 145/66 H 142/65 H 141/63 H Pulse Oximetry 97 97 90 L 12/16/18 09:27 12/16/18 10:45 12/16/18 12:03 Temperature 97.2 F L Pulse Rate 64 75 Respiratory Rate 18 16 Blood Pressure 135/60 Pulse Oximetry 95 95 12/16/18 14:59 12/16/18 16:01 12/16/18 20:11 Temperature 97.8 F Pulse Rate 71 71 Respiratory Rate 16 20 Blood Pressure 141/65 H Pulse Oximetry 95 90 L 92 L Intake & Output 12/16/18 12/16/18 12/17/18 06:59 18:59 06:59 Intake Total 840 / 840 Output Total 750 / 750 Balance 90 / 90 Weight 73.3 kg Intake: Oral 840 / 840 Output: Urine 750 / 750 Other: # Voids 8 # Bowel Movements 0 0 <Tuan Chan - Last Filed: 12/16/18 21:00> Results - Labs CBC & Chem 7: 12/16/18 05:52 12/16/18 05:52 Laboratory Results - last 24 hr 12/15/18 12/16/18 12/16/18 19:29 05:52 05:52 WBC 10.0 RBC 2.78 L Hgb 8.9 L 8.4 L Hct 26.5 L 25.1 L MCV 90.3 MCH 30.2 MCHC 33.4 RDW 15.8 Plt Count 132 L MPV 9.4 Sodium 149 H Potassium 3.6 Chloride 111 H Carbon Dioxide 31.3 Anion Gap 7 BUN 52 H Creatinine 2.02 H Estimated GFR 32 L Random Glucose 136 H Calcium 7.6 L <Afshan Elena - Last Filed: 12/16/18 15:19> - Labs CBC & Chem 7: 12/16/18 18:03 12/16/18 05:52 Laboratory Results - last 24 hr 12/16/18 12/16/18 12/16/18 05:52 05:52 18:03 WBC 10.0 RBC 2.78 L Hgb 8.4 L 8.7 L Hct 25.1 L 26.3 L MCV 90.3 MCH 30.2 MCHC 33.4 RDW 15.8 Plt Count 132 L MPV 9.4 Sodium 149 H Potassium 3.6 Chloride 111 H Carbon Dioxide 31.3 Anion Gap 7 BUN 52 H Creatinine 2.02 H Estimated GFR 32 L Random Glucose 136 H Calcium 7.6 L <Tuan Chan - Last Filed: 12/16/18 21:00> Assessment and Plan - Plan This patient is a pleasant 83-year-old male with past medical history significant for CVA with left-sided weakness, hypertension, hyperlipidemia, coronary artery disease COPD. Surgical history significant for CABG x2 in 1994 and 2001 and abdominal aortic aneurysm repair in 2001. Patient presented to [facility] emergency room with reports of shortness of breath and dizziness. Patient endorsed black tarry stools onset 2-3 days ago. Patient endorses generalized weakness with shortness of breath, denies any abdominal pain or vomiting. Patient does admit to having nausea over the last 3-4 days. States last EGD with colonoscopy done estimated 5 years ago no significant findings. Prior colonoscopy 10 years ago revealed polyps that were benign per patient. Patient denies use of NSAIDs other than baby aspirin once daily. States he takes Tylenol as needed for arthritic pain. Patient denies use of tobacco or alcohol products. Upon arrival to ER, hemoglobin noted to be 5.4 hematocrit 16.6. Patient has been placed on a pantoprazole as well as octreotide drip. Patient currently being transfused with #1 of 3 ordered units of packed RBCs. Our service has been consulted to evaluate patient for GI bleeding. Melena stools GI bleed Patient presents with onset of dizziness with black tarry stools 2-3 days ago. Patient endorses nausea with no vomiting. Last EGD and colonoscopy as noted above. Patient denies hematemesis or hematochezia. Denies heartburn or symptoms of acid reflux. --Hemoglobin 5.4 hematocrit 16.6 on arrival. Patient currently being transfused with 1 of 3 ordered units of packed RBCs. 12/13/2018 CT abdomen and pelvis: Diverticulosis of the descending and sigmoid colon with minimal stranding in the region of the distal descending colon suggesting a mild degree of diverticulitis. No perforation or abscess. Abdominal aortic aneurysm measures 3.5 cm. Status post cholecystectomy. Bilateral renal low-density likely cyst. 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 daily -Monitor hemoglobin and hematocrit -Avoid anticoagulants and NSAIDs -Monitor for active bleeding -Supportive care 12/15/2018 GI bleeding 12/13/2018 EGD-no gastritis or active bleeding. Nuclear medicine bleeding scan--negative for gastro-intestinal hemorrhage No further bleeding WBC 10.0 hemoglobin 8.4 hematocrit 25.1 platelet 132 INR 1.1 Plan -Clear liquid diet -Prep for colonoscopy tomorrow -N.p.o. after midnight -Pantoprazole 40 mg p.o. daily -Monitor hemoglobin and hematocrit -Avoid anticoagulants and NSAIDs -Monitor for active bleeding -Supportive care Patient has been seen and examined by myself and Dr. Chan and this note is written on his behalf Afshan Elena PA-C [phone] - Attending Attestation Dr. Chan <Afshan Elena C - Last Filed: 12/16/18 15:19> - Attending Attestation Patient seen and examined Agree with above Continue with current supportive care Monitor labs Colonoscopy tomorrow <Tuan Chan - Last Filed: 12/16/18 21:00>
[2018-12-16 18:17] LABS: Hematocrit 26.3 % (39.0-51.0); Hemoglobin 8.7 gm/dL (13.0-17.0)
[2018-12-17] MEDS: Amoxicillin/Clavulanate 875/125 MG Tablet PO SCH ×3 (06:20→22:49)
[2018-12-17] MEDS: hydrALAZINE 10 MG Tablet PO SCH ×3 (06:20→22:49)
[2018-12-17] MEDS: Isosorbide Mononitrate 30 MG ER 24HR Tablet (Imdur) PO SCH (06:20)
[2018-12-17 07:21] LABS: Baso % (Auto) 0.3 % (0.0-2.0); Eos # (Auto) 0.1 th/mm3 (0.0-0.4); Eos % (Auto) 0.5 % (0.0-4.0); Hematocrit 27.7 % (39.0-51.0); Hemoglobin 9.2 gm/dL (13.0-17.0); Lymph # (Auto) 1.1 th/mm3 (1.0-4.8); Lymph % (Auto) 9.9 % (9.0-44.0); Mean Corpuscular HGB Conc 33.4 % (32.0-36.0); Mean Corpuscular Hemoglobin 29.8 pg (27.0-34.0); Mean Corpuscular Volume 89.2 fL (80.0-100.0); Mean Platelet Volume 9.3 fL (7.0-11.0); Mono # (Auto) 1.1 th/mm3 (0.0-0.9); Mono % (Auto) 9.7 % (0.0-8.0); Neut % (Auto) 79.6 % (16.0-70.0); Platelet Count 154 th/mm3 (150-450); Red Cell Distribution Width 15.4 % (11.6-17.2); White Blood Count 11.3 th/mm3 (4.0-11.0)
[2018-12-17] MEDS ORDERED: Sodium Chlor 0.9% Inj 500 ML IV.CONT ONE (07:45)
[2018-12-17 07:51] LABS: Alanine Aminotransferase 13 U/L (12-78); Albumin 2.5 g/dL (3.4-5.0); Anion Gap 6 meq/L (5-15); Aspartate Aminotransferase 20 U/L (15-37); Blood Urea Nitrogen 50 mg/dL (7-18); Carbon Dioxide 30.8 meq/L (21.0-32.0); Chloride 109 meq/L (98-107); Glomerular Filtration Rate 37 mL/min (>89); Glucose,Random 110 mg/dL (74-106); Potassium 3.2 meq/L (3.5-5.1); Sodium 146 meq/L (136-145)
[2018-12-17 07:53] LABS: Alkaline Phosphatase 91 U/L (45-117); Total Protein 5.7 g/dL (6.4-8.2)
[2018-12-17] MEDS: Carvedilol 12.5 MG Tablet PO SCH ×2 (08:59→21:00)
[2018-12-17] MEDS: Furosemide 40 MG Tablet PO SCH (08:59)
--- NOTE | 2018-12-17 09:13 | P.PNFP ---
Subjective Interval history: Patient was seen and evaluated this morning. He reports shortness of breath despite being on a simple mask. He denies chest pain and URI symptoms except for nasal congestion. He denies nausea and vomiting. Patient reports dark stools "all night." Of note, patient only completed partial prep for colonoscopy. Patient voices desire to change his code status to DNR, no intubation. All questions were answered. <Gerry BahFlaquitoRema - 12/17/18 09:50> Results - Labs Result diagrams: 12/17/18 06:44 12/17/18 06:44 <Fer Moe - 12/17/18 21:51> Abnormal lab results 12/17/18 12/17/18 12/17/18 Range/Units 06:44 06:44 06:44 WBC 11.3 H (4.0-11.0) th/mm3 RBC 3.10 L (4.50-5.90) mil/mm3 Hgb 9.2 L (13.0-17.0) gm/dL Hct 27.7 L (39.0-51.0) % Neut % (Auto) 79.6 H (16.0-70.0) % Mccormick % (Auto) 9.7 H (0.0-8.0) % Neut # (Auto) 9.0 H (1.8-7.7) th/mm3 Mccormick # (Auto) 1.1 H (0.0-0.9) th/mm3 Sodium 146 H (136-145) meq/L Potassium 3.2 L (3.5-5.1) meq/L Chloride 109 H (98-107) meq/L BUN 50 H (7-18) mg/dL Creatinine 1.78 H (0.60-1.30) mg/dL Estimated GFR 37 L (>89) mL/min Random Glucose 110 H (74-106) mg/dL Calcium 8.0 L (8.5-10.1) mg/dL B-Natriuretic Peptide 1140 H (0-100) pg/mL Total Protein 5.7 L (6.4-8.2) g/dL Albumin 2.5 L (3.4-5.0) g/dL Short CBC 12/17/18 Range/Units 06:44 WBC 11.3 H (4.0-11.0) th/mm3 Hgb 9.2 L (13.0-17.0) gm/dL Hct 27.7 L (39.0-51.0) % Plt Count 154 (150-450) th/mm3 [facility] 12/17/18 06:44 Sodium 146 H Potassium 3.2 L Chloride 109 H Carbon Dioxide 30.8 BUN 50 H Creatinine 1.78 H Calcium 8.0 L Liver Function 12/17/18 Range/Units 06:44 Total Bilirubin 0.6 (0.2-1.0) mg/dL AST 20 (15-37) U/L ALT 13 (12-78) U/L Alkaline Phosphatase 91 (45-117) U/L Albumin 2.5 L (3.4-5.0) g/dL <Fer Moe - 12/17/18 21:51> Abnormal lab results 12/16/18 12/17/18 12/17/18 Range/Units 18:03 06:44 06:44 WBC 11.3 H (4.0-11.0) th/mm3 RBC 3.10 L (4.50-5.90) mil/mm3 Hgb 8.7 L 9.2 L (13.0-17.0) gm/dL Hct 26.3 L 27.7 L (39.0-51.0) % Neut % (Auto) 79.6 H (16.0-70.0) % Mccormick % (Auto) 9.7 H (0.0-8.0) % Neut # (Auto) 9.0 H (1.8-7.7) th/mm3 Mccormick # (Auto) 1.1 H (0.0-0.9) th/mm3 Sodium 146 H (136-145) meq/L Potassium 3.2 L (3.5-5.1) meq/L Chloride 109 H (98-107) meq/L BUN 50 H (7-18) mg/dL Creatinine 1.78 H (0.60-1.30) mg/dL Estimated GFR 37 L (>89) mL/min Random Glucose 110 H (74-106) mg/dL Calcium 8.0 L (8.5-10.1) mg/dL Total Protein 5.7 L (6.4-8.2) g/dL Albumin 2.5 L (3.4-5.0) g/dL Short CBC 12/16/18 12/17/18 Range/Units 18:03 06:44 WBC 11.3 H (4.0-11.0) th/mm3 Hgb 8.7 L 9.2 L (13.0-17.0) gm/dL Hct 26.3 L 27.7 L (39.0-51.0) % Plt Count 154 (150-450) th/mm3 BMP 12/17/18 06:44 Sodium 146 H Potassium 3.2 L Chloride 109 H Carbon Dioxide 30.8 BUN 50 H Creatinine 1.78 H Calcium 8.0 L Liver Function 12/17/18 Range/Units 06:44 Total Bilirubin 0.6 (0.2-1.0) mg/dL AST 20 (15-37) U/L ALT 13 (12-78) U/L Alkaline Phosphatase 91 (45-117) U/L Albumin 2.5 L (3.4-5.0) g/dL <Rema Wang - 12/17/18 09:13> - Imaging Impressions Chest X-Ray 12/17/18 00:00 CONCLUSION: Cardiomegaly with mild interstitial edema suggesting failure. <Fer Moe - 12/17/18 21:51> Physical Exam Vital signs: Vital Signs 12/17/18 00:00 12/17/18 01:28 12/17/18 04:00 Temperature 97.8 F 98.1 F Pulse Rate 75 80 78 Respiratory Rate 20 18 19 Blood Pressure 142/66 H 159/70 H Pulse Oximetry 90 L 90 L 12/17/18 04:41 12/17/18 08:00 12/17/18 08:20 Temperature 98.1 F Pulse Rate 84 82 85 Respiratory Rate 20 18 Blood Pressure 167/70 H Pulse Oximetry 93 L 94 L 12/17/18 12:00 12/17/18 16:14 12/17/18 16:28 Temperature 98.3 F 97.7 F Pulse Rate 77 86 88 Respiratory Rate 18 19 18 Blood Pressure 155/63 H 183/74 H Pulse Oximetry 94 L 93 L 12/17/18 19:00 12/17/18 20:00 12/17/18 20:37 Temperature 97.1 F L Pulse Rate 80 82 Respiratory Rate 21 18 Blood Pressure 154/82 H 152/72 H Pulse Oximetry 96 95 Intake & Output 12/17/18 12/17/18 12/18/18 06:59 18:59 06:59 Output Total 1600 / 1600 Balance -1600 / -1600 Weight 73.2 kg Output: Urine 1600 / 1600 Other: # Voids 4 Date of Last Bowel Movement 12/17/18 # Bowel Movements 6 1 <Fer Moe - 12/17/18 21:51> Vital Signs 12/16/18 09:27 12/16/18 10:45 12/16/18 12:03 Temperature 97.2 F L Pulse Rate 64 75 Respiratory Rate 18 16 Blood Pressure 135/60 Pulse Oximetry 95 95 12/16/18 14:59 12/16/18 16:01 12/16/18 20:00 Temperature 97.8 F 97.8 F Pulse Rate 71 71 82 Respiratory Rate 16 20 19 Blood Pressure 141/65 H 159/69 H Pulse Oximetry 95 90 L 93 L 12/16/18 20:11 12/17/18 00:00 12/17/18 01:28 Temperature 97.8 F Pulse Rate 75 80 Respiratory Rate 20 18 Blood Pressure 142/66 H Pulse Oximetry 92 L 90 L 12/17/18 04:00 12/17/18 04:41 12/17/18 08:20 Temperature 98.1 F Pulse Rate 78 84 85 Respiratory Rate 19 18 Blood Pressure 159/70 H Pulse Oximetry 90 L 94 L Intake & Output 12/16/18 12/17/18 12/17/18 18:59 06:59 18:59 Weight 73.2 kg Other: # Voids 8 4 # Bowel Movements 0 6 <Rema Wang - 12/17/18 09:13> Narrative: GENERAL: 83-year-old, well nourished male, laying down comfortably in bed. Some respiratory distress. SKIN: Warm and dry. Mild skin breakdown on bilateral anterior lower extremity, chronic per patient. Chronic ecchymosis of bilateral forearms. HEAD: Atraumatic. Normocephalic. ENT: No nasal bleeding or discharge. Airway patent. CARDIOVASCULAR: Regular rate and rhythm. No murmur. RESPIRATORY: No accessory muscle use but visibly out of breath. Clear to auscultation anteriorly, equal breath sounds. GASTROINTESTINAL: Abdomen soft, nondistended. MUSCULOSKELETAL: No edema noted on exam. No obvious deformities. No calf tenderness. NEUROLOGICAL: Awake and alert. No obvious cranial nerve deficits. Normal speech. PSYCHIATRIC: Appropriate mood and affect; insight and judgment normal. <Rema Wang - 12/17/18 09:50> Assessment and Plan - Assessment (1) Shortness of breath Code(s): R06.02 - Shortness of breath Status: Acute (2) Acute GI bleeding Code(s): K92.2 - Gastrointestinal hemorrhage, unspecified Status: Acute (3) Diverticulosis Code(s): K57.90 - Diverticulosis of intestine, part unspecified, without perforation or abscess without bleeding Status: Chronic (4) Diverticulitis Code(s): K57.92 - Diverticulitis of intestine, part unspecified, without perforation or abscess without bleeding Status: Acute (5) Anemia Code(s): D64.9 - Anemia, unspecified Status: Acute (6) Renal insufficiency Code(s): N28.9 - Disorder of kidney and ureter, unspecified Status: Acute (7) COPD (chronic obstructive pulmonary disease) Code(s): J44.9 - Chronic obstructive pulmonary disease, unspecified Status: Chronic (8) Hypertension Code(s): I10 - Essential (primary) hypertension Status: Chronic (9) Nutrition, metabolism, and development symptoms Code(s): R63.8 - Other symptoms and signs concerning food and fluid intake Status: Acute (10) DVT prophylaxis Status: Acute <Fer Moe Keshav - 12/17/18 21:51> (1) Shortness of breath Code(s): R06.02 - Shortness of breath Status: Acute Plan: Patient with increased oxygen requirements. On simple mask. CHF versus COPD exacerbation versus PE. WBC 11.3 today. Afebrile. Vitals stable. Clear on auscultation and LE edema resolved. Chest XR pending. BNP pending. Sputum culture pending. Lasix 40mg PO BID (home regimen). Albuterol-Ipratropium q8hr to alternate with Albuterol. Albuterol q8hr to alternate with DuoNeb. Albuterol q2hr PRN shortness of breath. (2) Acute GI bleeding Code(s): K92.2 - Gastrointestinal hemorrhage, unspecified Status: Acute Plan: s/p 3 units of PRBCs. Hgb stable. Anemia likely secondary to GI bleed. Hemoccult positive. EGD no active bleed identified. Nuclear medicine bleeding scan negative. Patient refusing colonoscopy 12/15/18. Patient now agreeable to colonoscopy; scheduled for 12/17/18. However, patient requiring more oxygen today; GI team contacted. Colonoscopy to be postponed until further notice. Abdomen/Pelvis CT 12/13/18: 1. Diverticulosis of the descending and sigmoid colon with minimal stranding in the region of the distal descending colon suggesting a mild degree of diverticulitis. No perforation or abscess. 2. Abdominal aortic aneurysm measures 3.5 cm. 3. Status post cholecystectomy. 4. Bilateral renal low-density likely cyst. 5. 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 GI consulted; appreciate further recommendations. Continue Augmentin 875/125mg PO q8hr. Protonix 40mg PO daily. Avoid NSAIDs. Hold ASA. Monitor H&H. Transfuse 1 unit of PRBCs with Hgb <8. (3) Diverticulosis Code(s): K57.90 - Diverticulosis of intestine, part unspecified, without perforation or abscess without bleeding Status: Chronic Plan: See plan above. (4) Diverticulitis Code(s): K57.92 - Diverticulitis of intestine, part unspecified, without perforation or abscess without bleeding Status: Acute Plan: See plan above (5) Anemia Code(s): D64.9 - Anemia, unspecified Status: Acute Plan: See plan above. (6) Renal insufficiency Code(s): N28.9 - Disorder of kidney and ureter, unspecified Status: Acute Plan: Stable, Cr 1.78. Monitor. (7) COPD (chronic obstructive pulmonary disease) Code(s): J44.9 - Chronic obstructive pulmonary disease, unspecified Status: Chronic Plan: Patient with history of COPD, on continuous O2 3L NC at home. Requiring more oxygen. See plan above. (8) Hypertension Code(s): I10 - Essential (primary) hypertension Status: Chronic Plan: History of hypertension, stable. Continue home blood pressure medications. (9) Nutrition, metabolism, and development symptoms Code(s): R63.8 - Other symptoms and signs concerning food and fluid intake Status: Acute Plan: Fluids: Tolerating PO. Diet: Cardiac diet. Electrodes: Monitor and replete as necessary. (10) DVT prophylaxis Status: Acute Plan: SCDs and compression hose. Pharmacologic prophylaxis contraindicated due to active GI bleed. <Rema Wang - 12/17/18 09:16> - Assessment and Plan Discharge Planning: Pending clinical improvement. <Rema Wang - 12/17/18 09:50> - Attending Attestation The exam, history, and the medical decision-making described in the above note were completed with the assistance of the resident physician. I reviewed and agree with the findings presented. I attest that I had a [id number] encounter with the patient on the same day, and personally performed and documented my assessment and findings in the medical record. Patient agreeable to colonoscopy. but unfortunately patient having CHF exacerbation in hospital s/p transfusions and more dyspneic today and needed medical optimization prior to procedure. Will monitor H&H and change diuresis to IV and when closer to baseline will need to reconsult GI for colonoscopy then. clear liquids until then. <Fer Moe - 12/17/18 21:51> <Gerry Flaquito Bahin - Last Filed: 12/17/18 09:16> (3) Diverticulosis Qualifiers: Diverticulosis bleeding: diverticulosis with bleeding <Fer Moe - Last Filed: 12/17/18 21:51> (3) Diverticulosis Qualifiers: Diverticulosis bleeding: diverticulosis with bleeding <Rema Wang Last Filed: 12/17/18 09:16> (3) Diverticulosis Qualifiers: Diverticulosis bleeding: diverticulosis with bleeding <Fer Moe - Prosper Filed: 12/17/18 21:51> (3) Diverticulosis Qualifiers: Diverticulosis bleeding: diverticulosis with bleeding
--- NOTE | 2018-12-17 10:07 | XR ---
EXAM DATE: 12/17/2018 10:02 AM EST AGE/SEX: 83 years / Male INDICATIONS: . Difficulty breathing. CLINICAL DATA: This is the patient's subsequent encounter. Patient reports that signs and symptoms h ave been present for 4 - 6 days and indicates a pain score of 0/10. MEDICAL/SURGICAL HISTORY: Chronic obstructive pulmonary disease. CABG. COMPARISON: No prior exams available for comparison. FINDINGS: The heart is enlarged. Mild interstitial edema is present. There is no evidence consolidation, pleura l effusion or pneumothorax. Sternal wires previous median sternotomy are noted. The portion of the jarrod [place] skeleton visualized is unremarkable. CONCLUSION: Cardiomegaly with mild interstitial edema suggesting failure. Electronically signed by: Isrrael Dunbar MD Board Certified Radiologist 12/17/2018 10:06 AM EST
--- NOTE | 2018-12-17 20:47 | P.PNGI ---
Subjective Interval history: Patient awake and alert Seen earlier today Reporting shortness of breath on simple mask Unable to complete prep for colonoscopy Physical Exam Vital signs: Vital Signs 12/17/18 00:00 12/17/18 01:28 12/17/18 04:00 Temperature 97.8 F 98.1 F Pulse Rate 75 80 78 Respiratory Rate 20 18 19 Blood Pressure 142/66 H 159/70 H Pulse Oximetry 90 L 90 L 12/17/18 04:41 12/17/18 08:00 12/17/18 08:20 Temperature 98.1 F Pulse Rate 84 82 85 Respiratory Rate 20 18 Blood Pressure 167/70 H Pulse Oximetry 93 L 94 L 12/17/18 12:00 12/17/18 16:14 12/17/18 16:28 Temperature 98.3 F 97.7 F Pulse Rate 77 86 88 Respiratory Rate 18 19 18 Blood Pressure 155/63 H 183/74 H Pulse Oximetry 94 L 93 L 12/17/18 19:00 12/17/18 20:00 12/17/18 20:37 Temperature 97.1 F L Pulse Rate 80 82 Respiratory Rate 21 18 Blood Pressure 154/82 H 152/72 H Pulse Oximetry 96 95 Intake & Output 12/17/18 12/17/18 12/18/18 06:59 18:59 06:59 Output Total 1600 / 1600 Balance -1600 / -1600 Weight 73.2 kg Output: Urine 1600 / 1600 Other: # Voids 4 Date of Last Bowel Movement 12/17/18 # Bowel Movements 6 1 - Constitutional cooperative - Routine HEENT Exam Head: Present: normocephalic - Routine Neck Exam Present: supple - Routine Respiratory Exam Present: accessory muscle use, CTA bilaterally - Routine Cardiovascular Exam Present: RRR, S1, S2. Absent: murmur - Routine Abdominal Exam Present: soft, normoactive bowel sounds. Absent: tenderness, distended, firm - Routine Skin Exam Present: dry, warm Comments: Ecchymosis bilateral forearms - Routine Neurological Exam Present: alert - Routine Psychiatric Exam Present: normal affect Results - Labs CBC & Chem 7: 12/17/18 06:44 12/17/18 06:44 Laboratory Results - last 24 hr 12/17/18 12/17/18 12/17/18 06:44 06:44 06:44 WBC 11.3 H RBC 3.10 L Hgb 9.2 L Hct 27.7 L MCV 89.2 MCH 29.8 MCHC 33.4 RDW 15.4 Plt Count 154 MPV 9.3 Neut % (Auto) 79.6 H Lymph % (Auto) 9.9 Caldwell % (Auto) 9.7 H Eos % (Auto) 0.5 Baso % (Auto) 0.3 Neut # (Auto) 9.0 H Lymph # (Auto) 1.1 Caldwell # (Auto) 1.1 H Eos # (Auto) 0.1 Baso # (Auto) 0.0 WBC Differential . Differential Comment Auto diff final Sodium 146 H Potassium 3.2 L Chloride 109 H Carbon Dioxide 30.8 Anion Gap 6 BUN 50 H Creatinine 1.78 H Estimated GFR 37 L Random Glucose 110 H Calcium 8.0 L Total Bilirubin 0.6 AST 20 ALT 13 Alkaline Phosphatase 91 B-Natriuretic Peptide 1140 H Total Protein 5.7 L Albumin 2.5 L - Imaging Impressions Chest X-Ray 12/17/18 00:00 CONCLUSION: Cardiomegaly with mild interstitial edema suggesting failure. Assessment and Plan - Plan This patient is a pleasant 83-year-old male with past medical history significant for CVA with left-sided weakness, hypertension, hyperlipidemia, coronary artery disease COPD. Surgical history significant for CABG x2 in 1994 and 2001 and abdominal aortic aneurysm repair in 2001. Patient presented to [facility] emergency room with reports of shortness of breath and dizziness. Patient endorsed black tarry stools onset 2-3 days ago. Patient endorses generalized weakness with shortness of breath, denies any abdominal pain or vomiting. Patient does admit to having nausea over the last 3-4 days. States last EGD with colonoscopy done estimated 5 years ago no significant findings. Prior colonoscopy 10 years ago revealed polyps that were benign per patient. Patient denies use of NSAIDs other than baby aspirin once daily. States he takes Tylenol as needed for arthritic pain. Patient denies use of tobacco or alcohol products. Upon arrival to ER, hemoglobin noted to be 5.4 hematocrit 16.6. Patient has been placed on a pantoprazole as well as octreotide drip. Patient currently being transfused with #1 of 3 ordered units of packed RBCs. Our service has been consulted to evaluate patient for GI bleeding. Melena stools GI bleed Patient presents with onset of dizziness with black tarry stools 2-3 days ago. Patient endorses nausea with no vomiting. Last EGD and colonoscopy as noted above. Patient denies hematemesis or hematochezia. Denies heartburn or symptoms of acid reflux. --Hemoglobin 5.4 hematocrit 16.6 on arrival. Patient currently being transfused with 1 of 3 ordered units of packed RBCs. 12/13/2018 CT abdomen and pelvis: Diverticulosis of the descending and sigmoid colon with minimal stranding in the region of the distal descending colon suggesting a mild degree of diverticulitis. No perforation or abscess. Abdominal aortic aneurysm measures 3.5 cm. Status post cholecystectomy. Bilateral renal low-density likely cyst. 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 daily -Monitor hemoglobin and hematocrit -Avoid anticoagulants and NSAIDs -Monitor for active bleeding -Supportive care 12/15/2018 GI bleeding 12/13/2018 EGD-no gastritis or active bleeding. Nuclear medicine bleeding scan--negative for gastro-intestinal hemorrhage No further bleeding WBC 10.0 hemoglobin 8.4 hematocrit 25.1 platelet 132 INR 1.1 12/17/2018 GI bleed Stools Hemoccult positive History of diverticulosis Patient not stable for endoscopic procedure at this time-due to unstable respiratory status Colonoscopy on hold--patient aware and agreeable Hemoglobin 9.2 hematocrit 27.7 Plan Diet as tolerated We will hold off on endoscopic procedures until patient stable Continue PPI Monitor hemoglobin and hematocrit Avoid anticoagulants and NSAIDs Monitor for active bleeding and transfuse as needed Supportive care GI will sign off at this time, please notify when patient stable and agreeable for endoscopic procedures to evaluate GI bleeding This patient has been seen by myself and Dr. Monique and this note is written on his behalf - Attending Attestation Dr. Monique
[2018-12-18] MEDS: Amoxicillin/Clavulanate 875/125 MG Tablet PO SCH ×3 (05:32→21:47)
[2018-12-18] MEDS: hydrALAZINE 10 MG Tablet PO SCH ×3 (05:32→21:47)
[2018-12-18] MEDS: Isosorbide Mononitrate 30 MG ER 24HR Tablet (Imdur) PO SCH (06:11)
[2018-12-18] MEDS: Carvedilol 12.5 MG Tablet PO SCH ×2 (09:16→21:47)
--- NOTE | 2018-12-18 10:55 | P.PNFP ---
Subjective Interval history: Patient was seen and evaluated this morning. "My breathing is much better." He reports being able to take deep breaths and speak in complete sentences. He denies chest pain, nausea, vomiting, diarrhea and constipation. He denies dark stool. Patient would like to get colonoscopy "over with." All questions were answered. <Gerry Rema Bah - 12/18/18 13:50> Results - Labs Result diagrams: 12/18/18 13:53 12/18/18 13:53 <Fer Moe - 12/18/18 17:04> Abnormal lab results 12/18/18 12/18/18 Range/Units 13:53 13:53 RBC 2.70 L (4.50-5.90) mil/mm3 Hgb 8.2 L (13.0-17.0) gm/dL Hct 24.4 L (39.0-51.0) % Plt Count 145 L (150-450) th/mm3 Sodium 147 H (136-145) meq/L Potassium 3.3 L (3.5-5.1) meq/L Chloride 109 H (98-107) meq/L Carbon Dioxide 33.1 H (21.0-32.0) meq/L BUN 41 H (7-18) mg/dL Creatinine 1.71 H (0.60-1.30) mg/dL Estimated GFR 38 L (>89) mL/min Random Glucose 167 H (74-106) mg/dL Calcium 7.7 L (8.5-10.1) mg/dL Short CBC 12/18/18 Range/Units 13:53 WBC 7.2 (4.0-11.0) th/mm3 Hgb 8.2 L (13.0-17.0) gm/dL Hct 24.4 L (39.0-51.0) % Plt Count 145 L (150-450) th/mm3 BMP 12/18/18 13:53 Sodium 147 H Potassium 3.3 L Chloride 109 H Carbon Dioxide 33.1 H BUN 41 H Creatinine 1.71 H Calcium 7.7 L <Fer Moe - 12/18/18 17:04> Physical Exam Vital signs: Vital Signs 12/17/18 19:00 12/17/18 20:00 12/17/18 20:37 Temperature 97.1 F L Pulse Rate 77 82 Respiratory Rate 21 18 Blood Pressure 154/82 H 152/72 H Pulse Oximetry 96 95 12/18/18 00:00 12/18/18 01:03 12/18/18 04:00 Temperature 97.4 F L Pulse Rate 76 84 74 Respiratory Rate 21 18 Blood Pressure 158/78 H Pulse Oximetry 97 12/18/18 04:29 12/18/18 07:47 12/18/18 07:53 Temperature 97.9 F Pulse Rate 69 68 Respiratory Rate 18 20 Blood Pressure 152/70 H Pulse Oximetry 96 94 L 12/18/18 08:00 12/18/18 11:05 12/18/18 12:00 Temperature 99.8 F H 98.0 F Pulse Rate 82 71 83 Respiratory Rate 18 20 20 Blood Pressure 176/73 H 133/64 Pulse Oximetry 96 95 83 L 12/18/18 15:21 12/18/18 16:00 Temperature 98.6 F Pulse Rate 75 75 Respiratory Rate 18 18 Blood Pressure 171/75 H Pulse Oximetry 96 Intake & Output 12/17/18 12/18/18 12/18/18 18:59 06:59 18:59 Intake Total 280 / 280 Output Total 1600 / 1600 780 / 780 Balance -1600 / -1600 -500 / -500 Weight 73 kg Intake: Oral 280 / 280 Output: Urine 1600 / 1600 780 / 780 Other: Date of Last Bowel Movement 12/17/18 12/17/18 # Bowel Movements 1 <Fer Moe - 12/18/18 17:04> Vital Signs 12/17/18 12:00 12/17/18 16:14 12/17/18 16:28 Temperature 98.3 F 97.7 F Pulse Rate 77 86 88 Respiratory Rate 18 19 18 Blood Pressure 155/63 H 183/74 H Pulse Oximetry 94 L 93 L 12/17/18 19:00 12/17/18 20:00 12/17/18 20:37 Temperature 97.1 F L Pulse Rate 77 82 Respiratory Rate 21 18 Blood Pressure 154/82 H 152/72 H Pulse Oximetry 96 95 12/18/18 00:00 12/18/18 01:03 12/18/18 04:00 Temperature 97.4 F L Pulse Rate 76 84 74 Respiratory Rate 21 18 Blood Pressure 158/78 H Pulse Oximetry 97 12/18/18 04:29 12/18/18 07:47 12/18/18 07:53 Temperature 97.9 F Pulse Rate 69 68 Respiratory Rate 18 20 Blood Pressure 152/70 H Pulse Oximetry 96 94 L 12/18/18 08:00 Temperature 99.8 F H Pulse Rate 82 Respiratory Rate 18 Blood Pressure 176/73 H Pulse Oximetry 96 Intake & Output 12/17/18 12/18/18 12/18/18 18:59 06:59 18:59 Intake Total 280 / 280 Output Total 1600 / 1600 780 / 780 Balance -1600 / -1600 -500 / -500 Weight 73 kg Intake: Oral 280 / 280 Output: Urine 1600 / 1600 780 / 780 Other: Date of Last Bowel Movement 12/17/18 12/17/18 # Bowel Movements 1 <Rema Wang - 12/18/18 10:55> Narrative: GENERAL: 83-year-old, well nourished male, laying down comfortably in bed. In no acute distress. Speaking in complete sentences. SKIN: Warm and dry. Mild skin breakdown on bilateral anterior lower extremity, chronic per patient. Chronic ecchymosis of bilateral forearms. HEAD: Atraumatic. Normocephalic. ENT: No nasal bleeding or discharge. Airway patent. CARDIOVASCULAR: Regular rate and rhythm. No murmur. RESPIRATORY: No accessory muscle use. Clear to auscultation anteriorly, equal breath sounds. GASTROINTESTINAL: Abdomen soft, nondistended. MUSCULOSKELETAL: No edema noted on exam. No obvious deformities. No calf tenderness. NEUROLOGICAL: Awake and alert. No obvious cranial nerve deficits. Normal speech. PSYCHIATRIC: Appropriate mood and affect; insight and judgment normal. <Rema Wang - 12/18/18 12:24> Assessment and Plan - Assessment (1) Shortness of breath Code(s): R06.02 - Shortness of breath Status: Acute (2) Acute GI bleeding Code(s): K92.2 - Gastrointestinal hemorrhage, unspecified Status: Acute (3) Diverticulosis Code(s): K57.90 - Diverticulosis of intestine, part unspecified, without perforation or abscess without bleeding Status: Chronic (4) Diverticulitis Code(s): K57.92 - Diverticulitis of intestine, part unspecified, without perforation or abscess without bleeding Status: Acute (5) Anemia Code(s): D64.9 - Anemia, unspecified Status: Acute (6) Renal insufficiency Code(s): N28.9 - Disorder of kidney and ureter, unspecified Status: Acute (7) COPD (chronic obstructive pulmonary disease) Code(s): J44.9 - Chronic obstructive pulmonary disease, unspecified Status: Chronic (8) Hypertension Code(s): I10 - Essential (primary) hypertension Status: Chronic (9) Nutrition, metabolism, and development symptoms Code(s): R63.8 - Other symptoms and signs concerning food and fluid intake Status: Acute (10) DVT prophylaxis Status: Acute <Fer Moe - 12/18/18 17:04> (1) Shortness of breath Code(s): R06.02 - Shortness of breath Status: Acute Plan: Improved. 6L via NC. Likely secondary to CHF exacerbation. WBC 11.3 12/17/18. CBC pending. Afebrile. Vitals stable. Clear on auscultation and LE edema resolved. Chest XR: Cardiomegaly with mild interstitial edema suggesting failure. BNP: 1140. Sputum culture pending. Lasix 40mg IV BID. Albuterol-Ipratropium q8hr to alternate with Albuterol. Albuterol q8hr to alternate with DuoNeb. Albuterol q2hr PRN shortness of breath. (2) Acute GI bleeding Code(s): K92.2 - Gastrointestinal hemorrhage, unspecified Status: Acute Plan: s/p 3 units of PRBCs. Hgb stable. Anemia likely secondary to GI bleed. Hemoccult positive. EGD no active bleed identified. Nuclear medicine bleeding scan negative. Patient refusing colonoscopy 12/15/18. Patient now agreeable to colonoscopy; after discussion with GI, rescheduled for 12/20/18. Abdomen/Pelvis CT 12/13/18: 1. Diverticulosis of the descending and sigmoid colon with minimal stranding in the region of the distal descending colon suggesting a mild degree of diverticulitis. No perforation or abscess. 2. Abdominal aortic aneurysm measures 3.5 cm. 3. Status post cholecystectomy. 4. Bilateral renal low-density likely cyst. 5. 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 GI consulted; appreciate further recommendations. Continue Augmentin 875/125mg PO q8hr. Protonix 40mg PO daily. Avoid NSAIDs. Hold ASA. Monitor H&H. Transfuse 1 unit of PRBCs with Hgb <8. (3) Diverticulosis Code(s): K57.90 - Diverticulosis of intestine, part unspecified, without perforation or abscess without bleeding Status: Chronic Plan: See plan above. (4) Diverticulitis Code(s): K57.92 - Diverticulitis of intestine, part unspecified, without perforation or abscess without bleeding Status: Acute Plan: See plan above (5) Anemia Code(s): D64.9 - Anemia, unspecified Status: Acute Plan: See plan above. (6) Renal insufficiency Code(s): N28.9 - Disorder of kidney and ureter, unspecified Status: Acute Plan: Stable, Cr 1.78. Monitor. (7) COPD (chronic obstructive pulmonary disease) Code(s): J44.9 - Chronic obstructive pulmonary disease, unspecified Status: Chronic Plan: Patient with history of COPD, on continuous O2 3L NC at home. Requiring 6L NC. See plan above. (8) Hypertension Code(s): I10 - Essential (primary) hypertension Status: Chronic Plan: History of hypertension, stable. Continue home blood pressure medications. (9) Nutrition, metabolism, and development symptoms Code(s): R63.8 - Other symptoms and signs concerning food and fluid intake Status: Acute Plan: Fluids: Tolerating PO. Diet: Cardiac diet. Electrodes: Monitor and replete as necessary. (10) DVT prophylaxis Status: Acute Plan: SCDs and compression hose. Pharmacologic prophylaxis contraindicated due to active GI bleed. <Rema Wang - 12/18/18 13:47> - Assessment and Plan Discharge Planning: Pending clinical improvement. <Rema Wang - 12/18/18 12:24> - Attending Attestation The exam, history, and the medical decision-making described in the above note were completed with the assistance of the resident physician. I reviewed and agree with the findings presented. I attest that I had a [id number] encounter with the patient on the same day, and personally performed and documented my assessment and findings in the medical record. hgb did drop another g but shortness of breath much improved today, still not back to baseline. will give another day of diuresis and start prep tomorrow for hopefully colon on . <Fer Moe - 12/18/18 17:04> <Labell Niurka,Rema - Last Filed: 12/18/18 13:47> (3) Diverticulosis Qualifiers: Diverticulosis bleeding: diverticulosis with bleeding <Fer Moe - Last Filed: 12/18/18 17:04> (3) Diverticulosis Qualifiers: Diverticulosis bleeding: diverticulosis with bleeding <LabelKatia Cardenasstin - Last Filed: 12/18/18 13:47> (3) Diverticulosis Qualifiers: Diverticulosis bleeding: diverticulosis with bleeding <Fer Moe - Last Filed: 12/18/18 17:04> (3) Diverticulosis Qualifiers: Diverticulosis bleeding: diverticulosis with bleeding
--- NOTE | 2018-12-18 13:54 | P.PNGI ---
Subjective Interval history: Patient awake and alert Semirecumbent in bed States tolerating meals well Nursing reports no obvious bleeding Patient asking for colonoscopy procedure to be done on Denies shortness of breath on 5 L nasal cannula Physical Exam Vital signs: Vital Signs 12/17/18 16:14 12/17/18 16:28 12/17/18 19:00 Temperature 97.7 F Pulse Rate 86 88 Respiratory Rate 19 18 Blood Pressure 183/74 H 154/82 H Pulse Oximetry 93 L 12/17/18 20:00 12/17/18 20:37 12/18/18 00:00 Temperature 97.1 F L 97.4 F L Pulse Rate 77 82 76 Respiratory Rate 21 18 21 Blood Pressure 152/72 H 158/78 H Pulse Oximetry 96 95 97 12/18/18 01:03 12/18/18 04:00 12/18/18 04:29 Temperature 97.9 F Pulse Rate 84 74 69 Respiratory Rate 18 18 Blood Pressure 152/70 H Pulse Oximetry 96 12/18/18 07:47 12/18/18 07:53 12/18/18 08:00 Temperature 99.8 F H Pulse Rate 68 82 Respiratory Rate 20 18 Blood Pressure 176/73 H Pulse Oximetry 94 L 96 12/18/18 11:05 12/18/18 12:00 Temperature 98.0 F Pulse Rate 71 83 Respiratory Rate 20 20 Blood Pressure 133/64 Pulse Oximetry 95 83 L Intake & Output 12/17/18 12/18/18 12/18/18 18:59 06:59 18:59 Intake Total 280 / 280 Output Total 1600 / 1600 780 / 780 Balance -1600 / -1600 -500 / -500 Weight 73 kg Intake: Oral 280 / 280 Output: Urine 1600 / 1600 780 / 780 Other: Date of Last Bowel Movement 12/17/18 12/17/18 # Bowel Movements 1 - Constitutional chronically ill appearing, cooperative - Routine HEENT Exam Head: Present: normocephalic - Routine Respiratory Exam Present: CTA bilaterally. Absent: accessory muscle use - Routine Abdominal Exam Present: soft, normoactive bowel sounds. Absent: tenderness, distended - Routine Extremities Exam Absent: edema - Routine Skin Exam Present: dry, warm - Routine Neurological Exam Present: alert, oriented X3 Results - Labs CBC & Chem 7: 12/18/18 13:53 12/18/18 13:53 Assessment and Plan - Plan This patient is a pleasant 83-year-old male with past medical history significant for CVA with left-sided weakness, hypertension, hyperlipidemia, coronary artery disease COPD. Surgical history significant for CABG x2 in 1994 and 2001 and abdominal aortic aneurysm repair in 2001. Patient presented to [facility] emergency room with reports of shortness of breath and dizziness. Patient endorsed black tarry stools onset 2-3 days ago. Patient endorses generalized weakness with shortness of breath, denies any abdominal pain or vomiting. Patient does admit to having nausea over the last 3-4 days. States last EGD with colonoscopy done estimated 5 years ago no significant findings. Prior colonoscopy 10 years ago revealed polyps that were benign per patient. Patient denies use of NSAIDs other than baby aspirin once daily. States he takes Tylenol as needed for arthritic pain. Patient denies use of tobacco or alcohol products. Upon arrival to ER, hemoglobin noted to be 5.4 hematocrit 16.6. Patient has been placed on a pantoprazole as well as octreotide drip. Patient currently being transfused with #1 of 3 ordered units of packed RBCs. Our service has been consulted to evaluate patient for GI bleeding. Melena stools GI bleed Patient presents with onset of dizziness with black tarry stools 2-3 days ago. Patient endorses nausea with no vomiting. Last EGD and colonoscopy as noted above. Patient denies hematemesis or hematochezia. Denies heartburn or symptoms of acid reflux. --Hemoglobin 5.4 hematocrit 16.6 on arrival. Patient currently being transfused with 1 of 3 ordered units of packed RBCs. 12/13/2018 CT abdomen and pelvis: Diverticulosis of the descending and sigmoid colon with minimal stranding in the region of the distal descending colon suggesting a mild degree of diverticulitis. No perforation or abscess. Abdominal aortic aneurysm measures 3.5 cm. Status post cholecystectomy. Bilateral renal low-density likely cyst. 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 daily -Monitor hemoglobin and hematocrit -Avoid anticoagulants and NSAIDs -Monitor for active bleeding -Supportive care 12/15/2018 GI bleeding 12/13/2018 EGD-no gastritis or active bleeding. Nuclear medicine bleeding scan--negative for gastro-intestinal hemorrhage No further bleeding WBC 10.0 hemoglobin 8.4 hematocrit 25.1 platelet 132 INR 1.1 12/17/2018 GI bleed Stools Hemoccult positive History of diverticulosis Patient not stable for endoscopic procedure at this time-due to unstable respiratory status Colonoscopy on hold--patient aware and agreeable Hemoglobin 9.2 hematocrit 27.7 12/18/2018 GI bleed History of diverticulosis COPD currently on 5 L nasal cannula No reported bleeding Nursing reports no obvious bleeding Hemoglobin 9.2 hematocrit 27.7 Patient requesting colonoscopy be done on and prep on Monday Plan clear liquid diet Obtain consent for colonoscopy-we will plan for procedure Monday if patient stable-- Will need Pulmonary clearance as per Dr. Monique Continue PPI Monitor hemoglobin and hematocrit Avoid anticoagulants and NSAIDs Monitor for active bleeding and transfuse as needed Supportive care This patient has been seen by myself and Dr. Monique and this note is written on his behalf - Attending Attestation Dr. Monique
[2018-12-18 14:28] LABS: Hematocrit 24.4 % (39.0-51.0); Hemoglobin 8.2 gm/dL (13.0-17.0); Mean Corpuscular HGB Conc 33.7 % (32.0-36.0); Mean Corpuscular Hemoglobin 30.5 pg (27.0-34.0); Mean Corpuscular Volume 90.4 fL (80.0-100.0); Platelet Count 145 th/mm3 (150-450); White Blood Count 7.2 th/mm3 (4.0-11.0)
[2018-12-18 14:42] LABS: Calcium 7.7 mg/dL (8.5-10.1); Carbon Dioxide 33.1 meq/L (21.0-32.0); Potassium 3.3 meq/L (3.5-5.1)
[2018-12-19] MEDS: hydrALAZINE 10 MG Tablet PO SCH ×2 (06:10→14:52)
[2018-12-19] MEDS: Amoxicillin/Clavulanate 875/125 MG Tablet PO SCH ×2 (06:10→14:52)
[2018-12-19] MEDS: Isosorbide Mononitrate 30 MG ER 24HR Tablet (Imdur) PO SCH (06:10)
[2018-12-19 06:46] LABS: Hematocrit 25.7 % (39.0-51.0); Hemoglobin 8.7 gm/dL (13.0-17.0); Mean Corpuscular Hemoglobin 30.2 pg (27.0-34.0); Mean Platelet Volume 9.1 fL (7.0-11.0); Platelet Count 155 th/mm3 (150-450); Red Blood Count 2.88 mil/mm3 (4.50-5.90)
[2018-12-19 07:12] LABS: Calcium 7.8 mg/dL (8.5-10.1); Carbon Dioxide 32.2 meq/L (21.0-32.0)
[2018-12-19 07:19] LABS: Potassium 2.9 meq/L (3.5-5.1)
[2018-12-19] MEDS ORDERED: Potassium Chloride 25 MEQ Effervescent Tablet PO ONE (07:40)
--- NOTE | 2018-12-19 10:07 | P.PNFP ---
Subjective Interval history: Patient was seen and evaluated this morning. He reports feeling well. "I can take deep breaths again." He denies chest pain, shortness of breath, nausea, vomiting, diarrhea and constipation. He continues to have dark stools. Patient concerned about son's visitation privileges with a criminal record. He wants to see his son prior to the scheduled colonoscopy tomorrow. All questions were answered. <Gerry BahFlaquitoRema - 12/19/18 15:38> Results - Labs Result diagrams: 12/19/18 06:06 12/19/18 06:06 <Fer Moe - 12/19/18 17:16> Abnormal lab results 12/19/18 12/19/18 12/19/18 Range/Units 06:06 06:06 06:06 RBC 2.88 L (4.50-5.90) mil/mm3 Hgb 8.7 L (13.0-17.0) gm/dL Hct 25.7 L (39.0-51.0) % Potassium 2.9 L* (3.5-5.1) meq/L Carbon Dioxide 32.2 H (21.0-32.0) meq/L BUN 33 H (7-18) mg/dL Creatinine 1.54 H (0.60-1.30) mg/dL Estimated GFR 43 L (>89) mL/min Random Glucose 107 H (74-106) mg/dL Calcium 7.8 L (8.5-10.1) mg/dL B-Natriuretic Peptide 604 H (0-100) pg/mL Short CBC 12/19/18 Range/Units 06:06 WBC 8.0 (4.0-11.0) th/mm3 Hgb 8.7 L (13.0-17.0) gm/dL Hct 25.7 L (39.0-51.0) % Plt Count 155 (150-450) th/mm3 BMP 12/19/18 12/19/18 06:06 06:06 Sodium 145 Cancelled Potassium 2.9 L* Cancelled Chloride 105 Cancelled Carbon Dioxide 32.2 H Cancelled BUN 33 H Cancelled Creatinine 1.54 H Cancelled Calcium 7.8 L Cancelled <Fer Moe - 12/19/18 17:16> Abnormal lab results 0212/18/18 12/19/18 Range/Units 13:53 13:53 06:06 RBC 2.70 L 2.88 L (4.50-5.90) mil/mm3 Hgb 8.2 L 8.7 L (13.0-17.0) gm/dL Hct 24.4 L 25.7 L (39.0-51.0) % Plt Count 145 L (150-450) th/mm3 Sodium 147 H (136-145) meq/L Potassium 3.3 L (3.5-5.1) meq/L Chloride 109 H (98-107) meq/L Carbon Dioxide 33.1 H (21.0-32.0) meq/L BUN 41 H (7-18) mg/dL Creatinine 1.71 H (0.60-1.30) mg/dL Estimated GFR 38 L (>89) mL/min Random Glucose 167 H (74-106) mg/dL Calcium 7.7 L (8.5-10.1) mg/dL 12/19/18 Range/Units 06:06 RBC (4.50-5.90) mil/mm3 Hgb (13.0-17.0) gm/dL Hct (39.0-51.0) % Plt Count (150-450) th/mm3 Sodium (136-145) meq/L Potassium 2.9 L* (3.5-5.1) meq/L Chloride (98-107) meq/L Carbon Dioxide 32.2 H (21.0-32.0) meq/L BUN 33 H (7-18) mg/dL Creatinine 1.54 H (0.60-1.30) mg/dL Estimated GFR 43 L (>89) mL/min Random Glucose 107 H (74-106) mg/dL Calcium 7.8 L (8.5-10.1) mg/dL Short CBC 12/18/18 12/19/18 Range/Units 13:53 06:06 WBC 7.2 8.0 (4.0-11.0) th/mm3 Hgb 8.2 L 8.7 L (13.0-17.0) gm/dL Hct 24.4 L 25.7 L (39.0-51.0) % Plt Count 145 L 155 (150-450) th/mm3 BMP 12/18/18 12/19/18 13:53 06:06 Sodium 147 H 145 Potassium 3.3 L 2.9 L* Chloride 109 H 105 Carbon Dioxide 33.1 H 32.2 H BUN 41 H 33 H Creatinine 1.71 H 1.54 H Calcium 7.7 L 7.8 L <Rema Wang - 12/19/18 10:07> - Imaging Impressions Chest X-Ray 12/19/18 00:00 CONCLUSION: 1. Bibasilar airspace disease with associated effusions. These appear slightly worse when compared to the prior. 2. Findings of prior CABG. <Fer Moe - 12/19/18 17:16> Physical Exam Vital signs: Vital Signs 12/18/18 20:00 12/18/18 21:27 12/19/18 00:00 Temperature 97.4 F L 98.3 F Pulse Rate 70 76 71 Respiratory Rate 19 20 18 Blood Pressure 174/73 H 169/73 H Pulse Oximetry 96 98 96 12/19/18 04:00 12/19/18 08:00 12/19/18 08:39 Temperature 98.5 F 97.9 F Pulse Rate 72 76 82 Respiratory Rate 19 18 24 Blood Pressure 169/72 H 173/72 H Pulse Oximetry 97 99 12/19/18 08:40 12/19/18 11:33 12/19/18 11:34 Temperature Pulse Rate 75 Respiratory Rate 16 Blood Pressure Pulse Oximetry 97 97 12/19/18 12:04 12/19/18 16:05 12/19/18 16:51 Temperature 97.9 F 98.0 F Pulse Rate 71 76 75 Respiratory Rate 20 20 18 Blood Pressure 171/74 H 165/73 H Pulse Oximetry 94 L 94 L Intake & Output 12/18/18 12/19/18 12/19/18 18:59 06:59 18:59 Intake Total 475 / 475 1200 / 1200 Output Total 725 / 725 3000 / 3000 Balance -250 / -250 -1800 / -1800 Weight 73.5 kg Intake: Oral 475 / 475 1200 / 1200 Output: Urine 725 / 725 3000 / 3000 Other: Date of Last Bowel Movement 12/18/18 # Bowel Movements 1 1 <Fer Moe - 12/19/18 17:16> Vital Signs 12/18/18 11:05 12/18/18 12:00 12/18/18 15:21 Temperature 98.0 F Pulse Rate 71 83 75 Respiratory Rate 20 20 18 Blood Pressure 133/64 Pulse Oximetry 95 83 L 12/18/18 16:00 12/18/18 20:00 12/18/18 21:27 Temperature 98.6 F 97.4 F L Pulse Rate 75 70 76 Respiratory Rate 18 19 20 Blood Pressure 171/75 H 174/73 H Pulse Oximetry 96 96 98 12/19/18 00:00 12/19/18 04:00 12/19/18 08:00 Temperature 98.3 F 98.5 F 97.9 F Pulse Rate 71 72 76 Respiratory Rate 18 19 18 Blood Pressure 169/73 H 169/72 H 173/72 H Pulse Oximetry 96 97 99 12/19/18 08:39 12/19/18 08:40 Temperature Pulse Rate 82 Respiratory Rate 24 Blood Pressure Pulse Oximetry 97 Intake & Output 12/18/18 12/19/18 12/19/18 18:59 06:59 18:59 Intake Total 475 / 475 1200 / 1200 Output Total 725 / 725 3000 / 3000 Balance -250 / -250 -1800 / -1800 Weight 73.5 kg Intake: Oral 475 / 475 1200 / 1200 Output: Urine 725 / 725 3000 / 3000 Other: Date of Last Bowel Movement 12/18/18 # Bowel Movements 1 1 <Rema Wang - 12/19/18 10:07> Narrative: GENERAL: 83-year-old, well nourished male, laying down comfortably in bed. In no acute distress. Speaking in complete sentences. SKIN: Warm and dry. Mild skin breakdown on bilateral anterior lower extremity, chronic per patient. Chronic ecchymosis of bilateral forearms. HEAD: Atraumatic. Normocephalic. ENT: No nasal bleeding or discharge. Airway patent. CARDIOVASCULAR: Regular rate and rhythm. No murmur. RESPIRATORY: No accessory muscle use. Clear to auscultation anteriorly, equal breath sounds. GASTROINTESTINAL: Abdomen soft, nondistended. MUSCULOSKELETAL: No edema noted on exam. No obvious deformities. No calf tenderness. NEUROLOGICAL: Awake and alert. No obvious cranial nerve deficits. Normal speech. PSYCHIATRIC: Appropriate mood and affect; insight and judgment normal. <Rema Wang - 12/19/18 15:38> Assessment and Plan - Assessment (1) Shortness of breath Code(s): R06.02 - Shortness of breath Status: Acute (2) Acute GI bleeding Code(s): K92.2 - Gastrointestinal hemorrhage, unspecified Status: Acute (3) Diverticulosis Code(s): K57.90 - Diverticulosis of intestine, part unspecified, without perforation or abscess without bleeding Status: Chronic (4) Diverticulitis Code(s): K57.92 - Diverticulitis of intestine, part unspecified, without perforation or abscess without bleeding Status: Acute (5) Anemia Code(s): D64.9 - Anemia, unspecified Status: Acute (6) Renal insufficiency Code(s): N28.9 - Disorder of kidney and ureter, unspecified Status: Acute (7) COPD (chronic obstructive pulmonary disease) Code(s): J44.9 - Chronic obstructive pulmonary disease, unspecified Status: Chronic (8) Hypertension Code(s): I10 - Essential (primary) hypertension Status: Chronic (9) Nutrition, metabolism, and development symptoms Code(s): R63.8 - Other symptoms and signs concerning food and fluid intake Status: Acute (10) DVT prophylaxis Status: Acute (11) Acute exacerbation of CHF (congestive heart failure) Code(s): I50.9 - Heart failure, unspecified Status: Acute <Fer Moe Keshav - 12/19/18 17:16> (1) Shortness of breath Code(s): R06.02 - Shortness of breath Status: Acute Plan: Improved. 5L via NC. Likely secondary to CHF exacerbation. WBC normalized as of 12/19/18. Afebrile. Vitals stable. Clear on auscultation and LE edema resolved. Chest XR: Cardiomegaly with mild interstitial edema suggesting failure. Repeat Chest XR: Bibasilar airspace disease with associated effusions. These appear slightly worse when compared to the prior. Findings of prior CABG. BNP: 1140 -> 604 Sputum culture pending. Lasix 40mg IV BID. Albuterol-Ipratropium q8hr to alternate with Albuterol. Albuterol q8hr to alternate with DuoNeb. Albuterol q2hr PRN shortness of breath. (2) Acute GI bleeding Code(s): K92.2 - Gastrointestinal hemorrhage, unspecified Status: Acute Plan: s/p 3 units of PRBCs. Hgb stable. Anemia likely secondary to GI bleed. Hemoccult positive. EGD no active bleed identified. Nuclear medicine bleeding scan negative. Patient refusing colonoscopy 12/15/18. Patient now agreeable to colonoscopy; after discussion with GI, rescheduled for 12/20/18. Abdomen/Pelvis CT 12/13/18: 1. Diverticulosis of the descending and sigmoid colon with minimal stranding in the region of the distal descending colon suggesting a mild degree of diverticulitis. No perforation or abscess. 2. Abdominal aortic aneurysm measures 3.5 cm. 3. Status post cholecystectomy. 4. Bilateral renal low-density likely cyst. 5. 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 GI consulted; appreciate further recommendations. Continue Augmentin 875/125mg PO q8hr. Protonix 40mg PO daily. Avoid NSAIDs. Hold ASA. Monitor H&H. Transfuse 1 unit of PRBCs with Hgb <8. (3) Diverticulosis Code(s): K57.90 - Diverticulosis of intestine, part unspecified, without perforation or abscess without bleeding Status: Chronic Plan: See plan above. (4) Diverticulitis Code(s): K57.92 - Diverticulitis of intestine, part unspecified, without perforation or abscess without bleeding Status: Acute Plan: See plan above (5) Anemia Code(s): D64.9 - Anemia, unspecified Status: Acute Plan: See plan above. (6) Renal insufficiency Code(s): N28.9 - Disorder of kidney and ureter, unspecified Status: Acute Plan: Stable, Cr 1.54. Monitor. (7) COPD (chronic obstructive pulmonary disease) Code(s): J44.9 - Chronic obstructive pulmonary disease, unspecified Status: Chronic Plan: Patient with history of COPD, on continuous O2 3L NC at home. Requiring 5L NC. See plan above. (8) Hypertension Code(s): I10 - Essential (primary) hypertension Status: Chronic Plan: History of hypertension, stable. Continue home blood pressure medications. (9) Nutrition, metabolism, and development symptoms Code(s): R63.8 - Other symptoms and signs concerning food and fluid intake Status: Acute Plan: Fluids: Tolerating PO. Diet: Cardiac diet. NPO after midnight. Electrodes: Monitor and replete as necessary. (10) DVT prophylaxis Status: Acute Plan: SCDs and compression hose. Pharmacologic prophylaxis contraindicated due to active GI bleed. <Rema Wang - 12/19/18 15:31> - Assessment and Plan Discharge Planning: Pending clinical improvement. <Rema Wang - 12/19/18 15:38> - Attending Attestation The exam, history, and the medical decision-making described in the above note were completed with the assistance of the resident physician. I reviewed and agree with the findings presented. I attest that I had a [id number] encounter with the patient on the same day, and personally performed and documented my assessment and findings in the medical record. he feels he is breathing much better today. edema improved, some decreased sounds and mild crackles at lung bases. some dark stool. He is getting back down to his baseline O2 requirements with IV diuretics. he is down to 4L and is on 3L at home. BNP downtrending, CXR still showing some bibasilar infiltrates. GI requesting pulmonology clearance. I think he is about as stable now for colonoscopy as he is going to be but could benefit from pulmonary optimization. Patient still agreeable to colonoscopy if he can see his son. hopefully will get one tomorrow. <Fer Moe - 12/19/18 17:16> <Rema Wang - Last Filed: 12/19/18 15:31> (3) Diverticulosis Qualifiers: Diverticulosis bleeding: diverticulosis with bleeding <Fer Moe - Last Filed: 12/19/18 17:16> (3) Diverticulosis Qualifiers: Diverticulosis bleeding: diverticulosis with bleeding <Rema Wang Filed: 12/19/18 15:31> (3) Diverticulosis Qualifiers: Diverticulosis bleeding: diverticulosis with bleeding <Fer Moe Filed: 12/19/18 17:16> (3) Diverticulosis Qualifiers: Diverticulosis bleeding: diverticulosis with bleeding
[2018-12-19] MEDS: Carvedilol 12.5 MG Tablet PO SCH (10:13)
--- NOTE | 2018-12-19 14:37 | XR ---
EXAM DATE: 12/19/2018 2:22 PM EST AGE/SEX: 83 years / Male INDICATIONS: . Short of breath. CLINICAL DATA: This is the patient's subsequent encounter. Patient reports that signs and symptoms h ave been present for 1 week and indicates a pain score of 0/10. MEDICAL/SURGICAL HISTORY: Chronic obstructive pulmonary disease. CABG. COMPARISON: [facility] – [place], CHEST 2V AP&LAT, 12/17/2018. . FINDINGS: AP and lateral views of the chest demonstrate the lungs to be symmetrically aerated with bibasilar ai rspace disease and probable associated effusions. Heart size is normal. Findings of prior CABG with i ntact median sternotomy wires. Osseous structures are intact. CONCLUSION: 1. Bibasilar airspace disease with associated effusions. These appear slightly worse when compared t o the prior. 2. Findings of prior CABG. Electronically signed by: Jairo Franks MD Board Certified Radiologist 12/19/2018 2:36 PM EST
--- NOTE | 2018-12-19 18:55 | P.PNGI ---
Subjective Interval history: Patient in bed with mild respiratory distress on 3 L nasal cannula is at the bedside Discuss plan regarding colonoscopy on Monday after pulmonary clearance is obtained Order for pulmonary consult for colonoscopy clearance done Awaiting Dr. Watts recommendation Physical Exam Vital signs: Vital Signs 12/18/18 20:00 12/18/18 21:27 12/19/18 00:00 Temperature 97.4 F L 98.3 F Pulse Rate 70 76 71 Respiratory Rate 19 20 18 Blood Pressure 174/73 H 169/73 H Pulse Oximetry 96 98 96 12/19/18 04:00 12/19/18 08:00 12/19/18 08:39 Temperature 98.5 F 97.9 F Pulse Rate 72 76 82 Respiratory Rate 19 18 24 Blood Pressure 169/72 H 173/72 H Pulse Oximetry 97 99 12/19/18 08:40 12/19/18 11:33 12/19/18 11:34 Temperature Pulse Rate 75 Respiratory Rate 16 Blood Pressure Pulse Oximetry 97 97 12/19/18 12:04 12/19/18 16:05 12/19/18 16:51 Temperature 97.9 F 98.0 F Pulse Rate 71 76 75 Respiratory Rate 20 20 18 Blood Pressure 171/74 H 165/73 H Pulse Oximetry 94 L 94 L Intake & Output 12/18/18 12/19/18 12/19/18 18:59 06:59 18:59 Intake Total 475 / 475 1200 / 1200 1100 / 1100 Output Total 725 / 725 3000 / 3000 1675 / 1675 Balance -250 / -250 -1800 / -1800 -575 / -575 Weight 73.5 kg Intake: Oral 475 / 475 1200 / 1200 1100 / 1100 Output: Urine 725 / 725 3000 / 3000 1675 / 1675 Other: Date of Last Bowel Movement 12/18/18 12/19/18 # Bowel Movements 1 1 1 - Constitutional mild distress - Routine HEENT Exam Head: Present: normocephalic, atraumatic - Routine Neck Exam Present: supple - Routine Respiratory Exam Present: decreased breath sounds, rales, rhonchi, wheezes, crackles Comments: Occasional wheezes all over lung bases - Routine Cardiovascular Exam Present: RRR, S1, S2 - Routine Abdominal Exam Present: soft, normoactive bowel sounds. Absent: tenderness, distended - Routine Skin Exam Present: intact, erythema, petechiae - Routine Neurological Exam Present: alert, oriented X3 Results - Labs CBC & Chem 7: 12/19/18 06:06 12/19/18 06:06 Laboratory Results - last 24 hr 12/19/18 12/19/18 12/19/18 06:06 06:06 06:06 WBC 8.0 RBC 2.88 L Hgb 8.7 L Hct 25.7 L MCV 89.0 MCH 30.2 MCHC 34.0 RDW 15.0 Plt Count 155 MPV 9.1 Sodium 145 Cancelled Potassium 2.9 L* Cancelled Chloride 105 Cancelled Carbon Dioxide 32.2 H Cancelled Anion Gap 8 Cancelled BUN 33 H Cancelled Creatinine 1.54 H Cancelled Estimated GFR 43 L Cancelled Random Glucose 107 H Cancelled Calcium 7.8 L Cancelled B-Natriuretic Peptide 12/19/18 06:06 WBC RBC Hgb Hct MCV MCH MCHC RDW Plt Count MPV Sodium Potassium Chloride Carbon Dioxide Anion Gap BUN Creatinine Estimated GFR Random Glucose Calcium B-Natriuretic Peptide 604 H - Imaging Impressions Chest X-Ray 12/19/18 00:00 CONCLUSION: 1. Bibasilar airspace disease with associated effusions. These appear slightly worse when compared to the prior. 2. Findings of prior CABG. Assessment and Plan (1) Acute GI bleeding Status: Acute Code(s): K92.2 - Gastrointestinal hemorrhage, unspecified (2) Anemia Status: Acute Code(s): D64.9 - Anemia, unspecified (3) Renal insufficiency Status: Acute Code(s): N28.9 - Disorder of kidney and ureter, unspecified (4) Hypertension Status: Chronic Code(s): I10 - Essential (primary) hypertension (5) COPD (chronic obstructive pulmonary disease) Status: Chronic Code(s): J44.9 - Chronic obstructive pulmonary disease, unspecified (6) Diverticulosis Status: Chronic Code(s): K57.90 - Diverticulosis of intestine, part unspecified, without perforation or abscess without bleeding - Plan This patient is a pleasant 83-year-old male with past medical history significant for CVA with left-sided weakness, hypertension, hyperlipidemia, coronary artery disease COPD. Surgical history significant for CABG x2 in 1994 and 2001 and abdominal aortic aneurysm repair in 2001. Patient presented to [facility] emergency room with reports of shortness of breath and dizziness. Patient endorsed black tarry stools onset 2-3 days ago. Patient endorses generalized weakness with shortness of breath, denies any abdominal pain or vomiting. Patient does admit to having nausea over the last 3-4 days. States last EGD with colonoscopy done estimated 5 years ago no significant findings. Prior colonoscopy 10 years ago revealed polyps that were benign per patient. Patient denies use of NSAIDs other than baby aspirin once daily. States he takes Tylenol as needed for arthritic pain. Patient denies use of tobacco or alcohol products. Upon arrival to ER, hemoglobin noted to be 5.4 hematocrit 16.6. Patient has been placed on a pantoprazole as well as octreotide drip. Patient currently being transfused with #1 of 3 ordered units of packed RBCs. Our service has been consulted to evaluate patient for GI bleeding. Melena stools GI bleed Patient presents with onset of dizziness with black tarry stools 2-3 days ago. Patient endorses nausea with no vomiting. Last EGD and colonoscopy as noted above. Patient denies hematemesis or hematochezia. Denies heartburn or symptoms of acid reflux. --Hemoglobin 5.4 hematocrit 16.6 on arrival. Patient currently being transfused with 1 of 3 ordered units of packed RBCs. 12/13/2018 CT abdomen and pelvis: Diverticulosis of the descending and sigmoid colon with minimal stranding in the region of the distal descending colon suggesting a mild degree of diverticulitis. No perforation or abscess. Abdominal aortic aneurysm measures 3.5 cm. Status post cholecystectomy. Bilateral renal low-density likely cyst. 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 daily -Monitor hemoglobin and hematocrit -Avoid anticoagulants and NSAIDs -Monitor for active bleeding -Supportive care 12/15/2018 GI bleeding 12/13/2018 EGD-no gastritis or active bleeding. Nuclear medicine bleeding scan--negative for gastro-intestinal hemorrhage No further bleeding WBC 10.0 hemoglobin 8.4 hematocrit 25.1 platelet 132 INR 1.1 12/17/2018 GI bleed Stools Hemoccult positive History of diverticulosis Patient not stable for endoscopic procedure at this time-due to unstable respiratory status Colonoscopy on hold--patient aware and agreeable Hemoglobin 9.2 hematocrit 27.7 12/18/2018 GI bleed History of diverticulosis COPD currently on 5 L nasal cannula No reported bleeding Nursing reports no obvious bleeding Hemoglobin 9.2 hematocrit 27.7 Patient requesting colonoscopy be done on and prep on Monday12/19/2018 Assessment Status post EGD unremarkable for upper GI bleed Possible lower GI bleed as a cause of anemia Will perform colonoscopy Monday await pulmonary clearance No complaints today. There was no episode of jose guadalupe bleeding. was at the bedside. Plan clear liquid diet For colonoscopy Monday with pulmonary clearance as per Dr. Monique Continue PPI Monitor active bleeding Will do CBC PT/INR CMP in the morning Hold anticoagulants Avoid NSAIDs Supportive care Further recommendations to follow This patient has been seen by myself and Dr. Monique and this note is written on his behalf - Attending Attestation Dr. Monique (6) Diverticulosis Qualifiers: Diverticulosis bleeding: diverticulosis with bleeding
--- NOTE | 2018-12-19 21:23 | MB ---
cc: Washington Watts MD DATE: 12/19/2018 REQUESTING PHYSICIAN: Fer Moe MD REASON FOR CONSULTATION: Pulmonary management and preop evaluation. HISTORY OF PRESENT ILLNESS: Mr. Early is a pleasant 83-year-old male with longstanding history of COPD, is oxygen dependent, uses oxygen 2-3 liter nasal cannula. In his baseline state, he can walk inside the house or maybe half a block or so. The patient has history of coronary artery disease, status post redo CABG. He came to the hospital with black stools. He was feeling weak and nauseated and almost fainted. Denies any chest pain. No headache or dizziness. The patient was evaluated by GI. He has GI bleed and he is being considered for colonoscopy. PROCEDURE: The patient has history of coronary artery disease and coronary artery bypass graft. He uses a nebulizer or inhaler at home. No steroid dependence. PAST MEDICAL HISTORY: Significant for history of coronary artery disease, status post redo CABG, COPD, hypertension, hyperlipidemia. MEDICATIONS: 1. He is currently taking Tylenol nebulizer treatment with DuoNeb. 2. Augmentin 875/125 mg every 8 hours. 3. Lipitor 40 mg a day. 4. Coreg 25 mg twice a day. 5. Lasix 40 mg twice a day. 6. Hydralazine 10 mg 3 times a day. 7. Isosorbide 30 mg a day. 8. Niacin 500 mg a day. 9. Protonix 40 mg a day. 10. Flomax 0.4 mg a day. ALLERGIES: NO KNOWN DRUG ALLERGIES. SOCIAL HISTORY: He is for 62 years. He has history of smoking 40 years, 2 packs a day, which he has quit in 1994. Drinks socially. FAMILY HISTORY: Noncontributory. REVIEW OF SYSTEMS: He walks only short distances. Weight is stable. Has history of stroke with left-sided weakness. 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 PHYSICAL EXAMINATION: GENERAL: Reveals an elderly male, not in any acute distress. VITAL SIGNS: His blood pressure 165/73, heart rate 76, respirations 20, temperature 98. HEENT: Pupils are equal and reactive to light. Oral mucosa and nasal mucosa normal. NECK: No JVD. CHEST: He has end-expiratory rhonchi. HEART: S1, S2 normal. ABDOMEN: Soft, nontender, nondistended. Bowel sounds are present. EXTREMITIES: No edema. IMPRESSION: 1. COPD, he is oxygen dependent. 2. Anemia. 3. Gastrointestinal bleed. 4. Coronary disease, status post redo grafting. 5. History of melanoma. PLAN: I discussed with the patient I will check his pulmonary function study and blood gas and supplement his oxygen. Continue aerosol treatment. I discussed with the patient that there is a chance because of his underlying lung problem, he may need short-term ventilator support if he is intubated. The patient states that he has a living will and does not want to be intubated and if the procedure requires intubation, he will have to discuss with his to make a decision about it. Further treatment pending the course in the hospital. Thank you for this consult. MD BETHANY Aguirre/teresa , 08:44 PM , 08:54 PM
[2018-12-19 23:11] LABS: ABG Base Excess 9.1 mmol/L (-2-2); ABG PCO2 45 mmHg (38-42); ABG PO2 73 mmHg (61-120)
[2018-12-20] MEDS: Carvedilol 12.5 MG Tablet PO SCH ×3 (00:03→21:01)
[2018-12-20] MEDS: hydrALAZINE 10 MG Tablet PO SCH ×4 (00:03→21:00)
[2018-12-20] MEDS: Amoxicillin/Clavulanate 875/125 MG Tablet PO SCH ×4 (00:03→21:01)
[2018-12-20] MEDS: Isosorbide Mononitrate 30 MG ER 24HR Tablet (Imdur) PO SCH (06:44)
[2018-12-20 07:03] LABS: Hematocrit 29.3 % (39.0-51.0); Hemoglobin 9.9 gm/dL (13.0-17.0); Mean Corpuscular HGB Conc 33.9 % (32.0-36.0); Mean Corpuscular Hemoglobin 30.2 pg (27.0-34.0); Platelet Count 184 th/mm3 (150-450); Red Blood Count 3.29 mil/mm3 (4.50-5.90); Red Cell Distribution Width 14.8 % (11.6-17.2)
[2018-12-20 07:38] LABS: Calcium 8.5 mg/dL (8.5-10.1); Carbon Dioxide 32.3 meq/L (21.0-32.0)
--- NOTE | 2018-12-20 09:18 | P.PNFP ---
Subjective Interval history: Patient seen and examined. Patient has complaints of nausea, vomiting, chest pain, shortness of breath, abdominal pain, leg pain or swelling. at bedside. Patient spoke to pulmonology last night regarding high risk status for procedures due to patient's chronic medical problems and increased risk of need for intubation. Due to this, patient would be to change his DNI CODE STATUS to full code for at least 48 hours for this procedure. Patient states that he and his spoke about this at length last night, after talking to the block feeder, and this morning states that he will "do what he needs to do to get the colonoscopy done". Patient voiced understanding of these risks and states that he is agreeable to changing his code status from DNI to full code temporarily for the procedure, with the knowledge that there is the risk that if he is intubated he may not be able to extubate him. All questions answered. <Micki Villa - 12/20/18 13:41> Results - Labs Result diagrams: 12/20/18 06:26 12/20/18 06:26 <Fer Moe - 12/20/18 15:03> Abnormal lab results 12/19/18 12/20/18 12/20/18 Range/Units 21:07 06:26 06:26 RBC 3.29 L (4.50-5.90) mil/mm3 Hgb 9.9 L (13.0-17.0) gm/dL Hct 29.3 L (39.0-51.0) % ABG pH 7.48 H (7.380-7.420) ABG pCO2 45 H (38-42) mmHg ABG HCO3 33 H (22-26) mmol/L ABG Base Excess 9.1 H (-2-2) mmol/L Carbon Dioxide 32.3 H (21.0-32.0) meq/L BUN 27 H (7-18) mg/dL Creatinine 1.45 H (0.60-1.30) mg/dL Estimated GFR 46 L (>89) mL/min Short CBC 12/20/18 Range/Units 06:26 WBC 10.0 (4.0-11.0) th/mm3 Hgb 9.9 L (13.0-17.0) gm/dL Hct 29.3 L (39.0-51.0) % Plt Count 184 (150-450) th/mm3 [facility] 12/20/18 06:26 Sodium 145 Potassium 4.0 D Chloride 106 Carbon Dioxide 32.3 H BUN 27 H Creatinine 1.45 H Calcium 8.5 <Fer Moe K - 12/20/18 15:03> Abnormal lab results 12/19/18 12/19/18 12/20/18 Range/Units 06:06 21:07 06:26 RBC 3.29 L (4.50-5.90) mil/mm3 Hgb 9.9 L (13.0-17.0) gm/dL Hct 29.3 L (39.0-51.0) % ABG pH 7.48 H (7.380-7.420) ABG pCO2 45 H (38-42) mmHg ABG HCO3 33 H (22-26) mmol/L ABG Base Excess 9.1 H (-2-2) mmol/L Carbon Dioxide (21.0-32.0) meq/L BUN (7-18) mg/dL Creatinine (0.60-1.30) mg/dL Estimated GFR (>89) mL/min B-Natriuretic Peptide 604 H (0-100) pg/mL 12/20/18 Range/Units 06:26 RBC (4.50-5.90) mil/mm3 Hgb (13.0-17.0) gm/dL Hct (39.0-51.0) % ABG pH (7.380-7.420) ABG pCO2 (38-42) mmHg ABG HCO3 (22-26) mmol/L ABG Base Excess (-2-2) mmol/L Carbon Dioxide 32.3 H (21.0-32.0) meq/L BUN 27 H (7-18) mg/dL Creatinine 1.45 H (0.60-1.30) mg/dL Estimated GFR 46 L (>89) mL/min B-Natriuretic Peptide (0-100) pg/mL Short CBC 12/20/18 Range/Units 06:26 WBC 10.0 (4.0-11.0) th/mm3 Hgb 9.9 L (13.0-17.0) gm/dL Hct 29.3 L (39.0-51.0) % Plt Count 184 (150-450) th/mm3 [facility] 12/19/18 12/20/18 06:06 06:26 Sodium Cancelled 145 Potassium Cancelled 4.0 D Chloride Cancelled 106 Carbon Dioxide Cancelled 32.3 H BUN Cancelled 27 H Creatinine Cancelled 1.45 H Calcium Cancelled 8.5 <Micki Villa - 12/20/18 09:18> - Imaging Impressions Chest X-Ray 12/19/18 00:00 CONCLUSION: 1. Bibasilar airspace disease with associated effusions. These appear slightly worse when compared to the prior. 2. Findings of prior CABG. <Micki Villa - 12/20/18 09:18> Physical Exam Vital signs: Vital Signs 12/19/18 16:05 12/19/18 16:51 12/19/18 20:00 Temperature 98.0 F 97.6 F Pulse Rate 76 75 73 Respiratory Rate 20 18 16 Blood Pressure 165/73 H 163/71 H Pulse Oximetry 94 L 95 12/19/18 20:20 12/19/18 23:41 12/20/18 00:15 Temperature 98.0 F Pulse Rate 84 78 81 Respiratory Rate 18 17 16 Blood Pressure 129/79 Pulse Oximetry 97 98 12/20/18 03:29 12/20/18 04:00 12/20/18 08:00 Temperature 98.3 F 97.4 F L Pulse Rate 77 52 L 84 Respiratory Rate 16 18 16 Blood Pressure 180/79 H 183/86 H Pulse Oximetry 93 L 99 12/20/18 08:20 12/20/18 11:00 12/20/18 12:00 Temperature 97 F L Pulse Rate 76 84 77 Respiratory Rate 14 16 17 Blood Pressure 153/67 H Pulse Oximetry 95 Intake & Output 12/19/18 12/20/18 12/20/18 18:59 06:59 18:59 Intake Total 1100 / 1100 750 / 750 Output Total 1675 / 1675 1200 / 1200 Balance -575 / -575 -450 / -450 Weight 73.5 kg Intake: Oral 1100 / 1100 750 / 750 Output: Urine 1675 / 1675 1200 / 1200 Other: Date of Last Bowel Movement 12/19/18 12/19/18 12/19/18 # Bowel Movements 1 1 <Fer Moe - 12/20/18 15:03> Vital Signs 12/19/18 11:33 12/19/18 11:34 12/19/18 12:04 Temperature 97.9 F Pulse Rate 75 71 Respiratory Rate 16 20 Blood Pressure 171/74 H Pulse Oximetry 97 94 L 12/19/18 16:05 12/19/18 16:51 12/19/18 20:00 Temperature 98.0 F 97.6 F Pulse Rate 76 75 73 Respiratory Rate 20 18 16 Blood Pressure 165/73 H 163/71 H Pulse Oximetry 94 L 95 12/19/18 20:20 12/19/18 23:41 12/20/18 00:15 Temperature 98.0 F Pulse Rate 84 78 81 Respiratory Rate 18 17 16 Blood Pressure 129/79 Pulse Oximetry 97 98 12/20/18 03:29 12/20/18 04:00 12/20/18 08:00 Temperature 98.3 F Pulse Rate 77 52 L Respiratory Rate 16 18 Blood Pressure 180/79 H Pulse Oximetry 93 L 96 12/20/18 08:20 Temperature Pulse Rate 76 Respiratory Rate 14 Blood Pressure Pulse Oximetry Intake & Output 12/19/18 12/20/18 12/20/18 18:59 06:59 18:59 Intake Total 1100 / 1100 750 / 750 Output Total 1675 / 1675 1200 / 1200 Balance -575 / -575 -450 / -450 Weight 73.5 kg Intake: Oral 1100 / 1100 750 / 750 Output: Urine 1675 / 1675 1200 / 1200 Other: Date of Last Bowel Movement 12/19/18 12/19/18 # Bowel Movements 1 1 <Micki Villa B - 12/20/18 09:18> Narrative: GENERAL: 83-year-old, well nourished male, laying down comfortably in bed. In no acute distress. Speaking in complete sentences. SKIN: Warm and dry. Mild skin breakdown on bilateral anterior lower extremity, chronic per patient. Chronic ecchymosis of bilateral forearms. HEAD: Atraumatic. Normocephalic. ENT: No nasal bleeding or discharge. Airway patent. CARDIOVASCULAR: Regular rate and rhythm. No murmur. RESPIRATORY: No accessory muscle use. Clear to auscultation anteriorly, equal breath sounds. GASTROINTESTINAL: Abdomen soft, nondistended. MUSCULOSKELETAL: No edema noted on exam. No obvious deformities. No calf tenderness. NEUROLOGICAL: Awake and alert. No obvious cranial nerve deficits. Normal speech. PSYCHIATRIC: Appropriate mood and affect; insight and judgment normal. <Micki Villa B - 12/20/18 13:41> Assessment and Plan - Assessment (1) Shortness of breath Code(s): R06.02 - Shortness of breath Status: Acute (2) Acute GI bleeding Code(s): K92.2 - Gastrointestinal hemorrhage, unspecified Status: Acute (3) Diverticulosis Code(s): K57.90 - Diverticulosis of intestine, part unspecified, without perforation or abscess without bleeding Status: Chronic (4) Diverticulitis Code(s): K57.92 - Diverticulitis of intestine, part unspecified, without perforation or abscess without bleeding Status: Acute (5) Anemia Code(s): D64.9 - Anemia, unspecified Status: Acute (6) Renal insufficiency Code(s): N28.9 - Disorder of kidney and ureter, unspecified Status: Acute (7) COPD (chronic obstructive pulmonary disease) Code(s): J44.9 - Chronic obstructive pulmonary disease, unspecified Status: Chronic (8) Hypertension Code(s): I10 - Essential (primary) hypertension Status: Chronic (9) Nutrition, metabolism, and development symptoms Code(s): R63.8 - Other symptoms and signs concerning food and fluid intake Status: Acute (10) DVT prophylaxis Status: Acute (11) Acute exacerbation of CHF (congestive heart failure) Code(s): I50.9 - Heart failure, unspecified Status: Acute <Fer Moe - 12/20/18 15:03> (1) Shortness of breath Code(s): R06.02 - Shortness of breath Status: Acute Plan: Improved. 3-4L via NC. Likely secondary to CHF exacerbation. WBC normalized as of 12/19/18. Afebrile. Vitals stable. Clear on auscultation and LE edema resolved. Chest XR: Cardiomegaly with mild interstitial edema suggesting failure. Repeat Chest XR: Bibasilar airspace disease with associated effusions. These appear slightly worse when compared to the prior. Findings of prior CABG. BNP: 1140 to 604 Sputum culture pending. Lasix 40mg IV BID. Albuterol-Ipratropium q8hr to alternate with Albuterol. Albuterol q8hr to alternate with DuoNeb. Albuterol q2hr PRN shortness of breath. (2) Acute GI bleeding Code(s): K92.2 - Gastrointestinal hemorrhage, unspecified Status: Acute Plan: s/p 3 units of PRBCs. Hgb stable. Anemia likely secondary to GI bleed. Hemoccult positive. EGD no active bleed identified. Nuclear medicine bleeding scan negative. Patient refusing colonoscopy 12/15/18. Patient now agreeable to colonoscopy; after discussion with GI, rescheduled for 12/20/18. Pulmonology requesting bedside PFTs for clearance. Abdomen/Pelvis CT 12/13/18: 1. Diverticulosis of the descending and sigmoid colon with minimal stranding in the region of the distal descending colon suggesting a mild degree of diverticulitis. No perforation or abscess. 2. Abdominal aortic aneurysm measures 3.5 cm. 3. Status post cholecystectomy. 4. Bilateral renal low-density likely cyst. 5. 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 GI consulted: To undergo colonoscopy tomorrow, will undergo GI prep today, following change in CODE STATUS from DNR to full code preparation for this procedure. Continue Augmentin 875/125mg PO q8hr. Protonix 40mg PO daily. Avoid NSAIDs. Hold ASA. Monitor H&H. Transfuse 1 unit of PRBCs with Hgb <8. (3) Diverticulosis Code(s): K57.90 - Diverticulosis of intestine, part unspecified, without perforation or abscess without bleeding Status: Chronic Plan: See plan above. (4) Diverticulitis Code(s): K57.92 - Diverticulitis of intestine, part unspecified, without perforation or abscess without bleeding Status: Acute Plan: See plan above (5) Anemia Code(s): D64.9 - Anemia, unspecified Status: Acute Plan: See plan above. (6) Renal insufficiency Code(s): N28.9 - Disorder of kidney and ureter, unspecified Status: Acute Plan: Stable, Cr 1.54. Monitor. (7) COPD (chronic obstructive pulmonary disease) Code(s): J44.9 - Chronic obstructive pulmonary disease, unspecified Status: Chronic Plan: Patient with history of COPD, on continuous O2 3L NC at home. At baseline of 3-4L on NC today. See plan above. (8) Hypertension Code(s): I10 - Essential (primary) hypertension Status: Chronic Plan: History of hypertension, stable. Continue home blood pressure medications. (9) Nutrition, metabolism, and development symptoms Code(s): R63.8 - Other symptoms and signs concerning food and fluid intake Status: Acute Plan: Fluids: Tolerating PO. Diet: Cardiac diet. NPO after midnight. Electrodes: Monitor and replete as necessary. (10) DVT prophylaxis Status: Acute Plan: SCDs and compression hose. Pharmacologic prophylaxis contraindicated due to active GI bleed. (11) Acute exacerbation of CHF (congestive heart failure) Code(s): I50.9 - Heart failure, unspecified Status: Acute <Micki Villa 12/20/18 13:38> - Assessment and Plan dw Dr. Moe <Micki Villa 12/20/18 12:22> - Attending Attestation The exam, history, and the medical decision-making described in the above note were completed with the assistance of the resident physician. I reviewed and agree with the findings presented. I attest that I had a [id number] encounter with the patient on the same day, and personally performed and documented my assessment and findings in the medical record. Hgb stable and back to his baseline oxygen today. Patient and today telling me that he no longer wants to be a DNI and if it is necessary for colonoscopy to not be a DNI then he is willing to rescind it. He does agree that if the medical providers feel that intubation is necessary then he is agreeable, stating even if that means he has a prolonged time on a ventilator as result of difficult extubation. As he is at his baseline oxygen requirements now, I feel that he is ready for a colonoscopy if gastroenterology so chooses. Hopefully can d/c soon. If plans change and he does not end up getting a colonoscopy, then he could be discharged home with conservative management and return precautions because we will no longer be intervening. d/w patient and Dr Cleaning. Dr Cleaning to coordinate with pulm and GI. <Fer Moe - 12/20/18 15:03> <Micki Villa [facility] Filed: 12/20/18 13:38> (3) Diverticulosis Qualifiers: Diverticulosis bleeding: diverticulosis with bleeding <Fer Moe [facility] Filed: 12/20/18 15:03> (3) Diverticulosis Qualifiers: Diverticulosis bleeding: diverticulosis with bleeding [facility] 12/20/18 13:38> (3) Diverticulosis Qualifiers: Diverticulosis bleeding: diverticulosis with bleeding <Fer Moe [facility] Filed: 12/20/18 15:03> (3) Diverticulosis Qualifiers: Diverticulosis bleeding: diverticulosis with bleeding
--- NOTE | 2018-12-20 14:45 | P.PNGI ---
Subjective Interval history: Patient awake and alert Sitting up in bed Spouse present Plans for colonoscopy discussed--patient reports he is agreeable after long discussion with spouse Physical Exam Vital signs: Vital Signs 12/19/18 16:05 12/19/18 16:51 12/19/18 20:00 Temperature 98.0 F 97.6 F Pulse Rate 76 75 73 Respiratory Rate 20 18 16 Blood Pressure 165/73 H 163/71 H Pulse Oximetry 94 L 95 12/19/18 20:20 12/19/18 23:41 12/20/18 00:15 Temperature 98.0 F Pulse Rate 84 78 81 Respiratory Rate 18 17 16 Blood Pressure 129/79 Pulse Oximetry 97 98 12/20/18 03:29 12/20/18 04:00 12/20/18 08:00 Temperature 98.3 F 97.4 F L Pulse Rate 77 52 L 84 Respiratory Rate 16 18 16 Blood Pressure 180/79 H 183/86 H Pulse Oximetry 93 L 99 12/20/18 08:20 12/20/18 11:00 12/20/18 12:00 Temperature 97 F L Pulse Rate 76 84 77 Respiratory Rate 14 16 17 Blood Pressure 153/67 H Pulse Oximetry 95 Intake & Output 12/19/18 12/20/18 12/20/18 18:59 06:59 18:59 Intake Total 1100 / 1100 750 / 750 Output Total 1675 / 1675 1200 / 1200 Balance -575 / -575 -450 / -450 Weight 73.5 kg Intake: Oral 1100 / 1100 750 / 750 Output: Urine 1675 / 1675 1200 / 1200 Other: Date of Last Bowel Movement 12/19/18 12/19/18 12/19/18 # Bowel Movements 1 1 - Constitutional chronically ill appearing, cooperative - Routine HEENT Exam Head: Present: normocephalic - Routine Respiratory Exam Present: CTA bilaterally - Routine Cardiovascular Exam Present: RRR, S1, S2 - Routine Abdominal Exam Present: soft, normoactive bowel sounds. Absent: tenderness, distended - Routine Skin Exam Present: dry, warm - Routine Neurological Exam Present: alert, oriented X3 Results - Labs CBC & Chem 7: 12/20/18 06:26 12/20/18 06:26 Laboratory Results - last 24 hr 12/19/18 12/20/18 12/20/18 21:07 06:26 06:26 WBC 10.0 RBC 3.29 L Hgb 9.9 L Hct 29.3 L MCV 89.0 MCH 30.2 MCHC 33.9 RDW 14.8 Plt Count 184 MPV 9.0 Puncture Site Right radial Patient Temperature 98.6 O2 Saturation 93 ABG pH 7.48 H ABG pCO2 45 H ABG pO2 73 ABG HCO3 33 H ABG O2 Content 18.7 ABG Base Excess 9.1 H ABG Methemoglobin 1.2 Judd Test Present Hemoglobin 14.2 Carboxyhemoglobin 1.7 O2 Delivery Device Nasal cannula Liter Flow 4.00 Critical Value No Sodium 145 Potassium 4.0 D Chloride 106 Carbon Dioxide 32.3 H Anion Gap 7 BUN 27 H Creatinine 1.45 H Estimated GFR 46 L Random Glucose 103 Calcium 8.5 Assessment and Plan (1) Acute GI bleeding Status: Acute Code(s): K92.2 - Gastrointestinal hemorrhage, unspecified (2) Anemia Status: Acute Code(s): D64.9 - Anemia, unspecified (3) Renal insufficiency Status: Acute Code(s): N28.9 - Disorder of kidney and ureter, unspecified (4) Hypertension Status: Chronic Code(s): I10 - Essential (primary) hypertension (5) COPD (chronic obstructive pulmonary disease) Status: Chronic Code(s): J44.9 - Chronic obstructive pulmonary disease, unspecified (6) Diverticulosis Status: Chronic Code(s): K57.90 - Diverticulosis of intestine, part unspecified, without perforation or abscess without bleeding - Plan This patient is a pleasant 83-year-old male with past medical history significant for CVA with left-sided weakness, hypertension, hyperlipidemia, coronary artery disease COPD. Surgical history significant for CABG x2 in 1994 and 2001 and abdominal aortic aneurysm repair in 2001. Patient presented to [facility] emergency room with reports of shortness of breath and dizziness. Patient endorsed black tarry stools onset 2-3 days ago. Patient endorses generalized weakness with shortness of breath, denies any abdominal pain or vomiting. Patient does admit to having nausea over the last 3-4 days. States last EGD with colonoscopy done estimated 5 years ago no significant findings. Prior colonoscopy 10 years ago revealed polyps that were benign per patient. Patient denies use of NSAIDs other than baby aspirin once daily. States he takes Tylenol as needed for arthritic pain. Patient denies use of tobacco or alcohol products. Upon arrival to ER, hemoglobin noted to be 5.4 hematocrit 16.6. Patient has been placed on a pantoprazole as well as octreotide drip. Patient currently being transfused with #1 of 3 ordered units of packed RBCs. Our service has been consulted to evaluate patient for GI bleeding. Melena stools GI bleed Patient presents with onset of dizziness with black tarry stools 2-3 days ago. Patient endorses nausea with no vomiting. Last EGD and colonoscopy as noted above. Patient denies hematemesis or hematochezia. Denies heartburn or symptoms of acid reflux. --Hemoglobin 5.4 hematocrit 16.6 on arrival. Patient currently being transfused with 1 of 3 ordered units of packed RBCs. 12/13/2018 CT abdomen and pelvis: Diverticulosis of the descending and sigmoid colon with minimal stranding in the region of the distal descending colon suggesting a mild degree of diverticulitis. No perforation or abscess. Abdominal aortic aneurysm measures 3.5 cm. Status post cholecystectomy. Bilateral renal low-density likely cyst. 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 daily -Monitor hemoglobin and hematocrit -Avoid anticoagulants and NSAIDs -Monitor for active bleeding -Supportive care 12/15/2018 GI bleeding 12/13/2018 EGD-no gastritis or active bleeding. Nuclear medicine bleeding scan--negative for gastro-intestinal hemorrhage No further bleeding WBC 10.0 hemoglobin 8.4 hematocrit 25.1 platelet 132 INR 1.1 12/17/2018 GI bleed Stools Hemoccult positive History of diverticulosis Patient not stable for endoscopic procedure at this time-due to unstable respiratory status Colonoscopy on hold--patient aware and agreeable Hemoglobin 9.2 hematocrit 27.7 12/18/2018 GI bleed History of diverticulosis COPD currently on 5 L nasal cannula No reported bleeding Nursing reports no obvious bleeding Hemoglobin 9.2 hematocrit 27.7 Patient requesting colonoscopy be done on and prep on Monday12/19/2018 Assessment Status post EGD unremarkable for upper GI bleed Possible lower GI bleed as a cause of anemia Will perform colonoscopy Monday await pulmonary clearance No complaints today. There was no episode of jose guadalupe bleeding. was at the bedside. 12/20/2018 Hemoglobin 9.9 hematocrit 29.3 Post EGD on 12/14/2018 revealing no source for bleeding Patient agreeable to have colonoscopy performed--for further evaluation of anemia--> possible lower GI bleed Patient denies abdominal pain nausea vomiting. No obvious bleeding reported by staff Plan -Clear liquid diet -N.p.o. after midnight -Obtain consent for Colonoscopy -PPI -Monitor for active bleeding -Monitor hemoglobin hematocrit closely -Avoid NSAIDs -Supportive care -Further recommendations to follow This patient has been seen by myself and Dr. Monique and this note is written on his behalf - Attending Attestation Dr. Monique (6) Diverticulosis Qualifiers: Diverticulosis bleeding: diverticulosis with bleeding
[2018-12-20] MEDS ORDERED: PEG 3350/E-Lyte Soln 4000 ML Bottle PO ONE ×2 (16:00→21:00)
--- NOTE | 2018-12-20 18:30 | P.PNPL ---
Subjective Interval history: 83 YOWM with COPD,GIB PFT severe COPD On NC Looks comfortable at BS Physical Exam Vital signs: Vital Signs 12/19/18 20:00 12/19/18 20:20 12/19/18 23:41 Temperature 97.6 F 98.0 F Pulse Rate 73 84 78 Respiratory Rate 16 18 17 Blood Pressure 163/71 H 129/79 Pulse Oximetry 95 97 98 12/20/18 00:15 12/20/18 03:29 12/20/18 04:00 Temperature 98.3 F Pulse Rate 81 77 52 L Respiratory Rate 16 16 18 Blood Pressure 180/79 H Pulse Oximetry 93 L 12/20/18 08:00 12/20/18 08:20 12/20/18 11:00 Temperature 97.4 F L Pulse Rate 84 76 84 Respiratory Rate 16 14 16 Blood Pressure 183/86 H Pulse Oximetry 99 12/20/18 12:00 12/20/18 16:00 Temperature 97 F L 97.8 F Pulse Rate 77 80 Respiratory Rate 17 18 Blood Pressure 153/67 H 176/76 H Pulse Oximetry 95 96 Intake & Output 12/19/18 12/20/18 12/20/18 18:59 06:59 18:59 Intake Total 1100 / 1100 750 / 750 Output Total 1675 / 1675 1200 / 1200 Balance -575 / -575 -450 / -450 Weight 73.5 kg Intake: Oral 1100 / 1100 750 / 750 Output: Urine 1675 / 1675 1200 / 1200 Other: Date of Last Bowel Movement 12/19/18 12/19/18 12/19/18 # Bowel Movements 1 1 GENERAL: Elderly WM, NAD SKIN: Warm and dry. HEAD: Normocephalic. EYES: No scleral icterus. No injection or drainage. NECK: Supple, trachea midline. No JVD or lymphadenopathy. CARDIOVASCULAR: Regular rate and rhythm without murmurs, gallops, or rubs. RESPIRATORY: Breath sounds equal bilaterally. No accessory muscle use. GASTROINTESTINAL: Abdomen soft, non-tender, nondistended. MUSCULOSKELETAL: No cyanosis, or edema. BACK: Nontender without obvious deformity. No CVA tenderness. Assessment and Plan - Plan IMPRESSION: 1. COPD, he is oxygen dependent. 2. Anemia. 3. Gastrointestinal bleed. 4. Coronary disease, status post redo grafting. 5. History of melanoma. 6. Severe COPD PLAN: Aerosol nebs. Supplement 02 DW Pt and his Moderate risk of anesthesia and pulm complications and need for Vent support They understand and want to proceed with colonoscopy.
[2018-12-21 06:07] LABS: Hematocrit 29.7 % (39.0-51.0); Mean Corpuscular HGB Conc 33.6 % (32.0-36.0); Mean Corpuscular Hemoglobin 30.1 pg (27.0-34.0); Mean Corpuscular Volume 89.7 fL (80.0-100.0); Mean Platelet Volume 9.1 fL (7.0-11.0); Platelet Count 204 th/mm3 (150-450); Red Blood Count 3.31 mil/mm3 (4.50-5.90); Red Cell Distribution Width 14.7 % (11.6-17.2); White Blood Count 12.6 th/mm3 (4.0-11.0)
[2018-12-21 06:32] LABS: Alanine Aminotransferase 21 U/L (12-78); Albumin 2.5 g/dL (3.4-5.0); Anion Gap 9 meq/L (5-15); Aspartate Aminotransferase 29 U/L (15-37); Blood Urea Nitrogen 21 mg/dL (7-18); Calcium 8.2 mg/dL (8.5-10.1); Carbon Dioxide 29.8 meq/L (21.0-32.0); Chloride 104 meq/L (98-107); Glomerular Filtration Rate 48 mL/min (>89); Glucose,Random 105 mg/dL (74-106); Potassium 4.4 meq/L (3.5-5.1); Sodium 143 meq/L (136-145)
[2018-12-21 06:35] LABS: Alkaline Phosphatase 89 U/L (45-117); Total Protein 5.9 g/dL (6.4-8.2)
[2018-12-21] MEDS: Amoxicillin/Clavulanate 875/125 MG Tablet PO SCH ×3 (06:52→21:18)
[2018-12-21] MEDS: Isosorbide Mononitrate 30 MG ER 24HR Tablet (Imdur) PO SCH (06:52)
[2018-12-21] MEDS: hydrALAZINE 10 MG Tablet PO SCH ×3 (06:52→21:18)
--- NOTE | 2018-12-21 09:07 | P.PNFP ---
Subjective Interval history: Patient seen and examined. Patient notes that he is mildly nauseated, but attributes this to the bowel prep. He has been passing clear liquid since early this morning. Denies abdominal pain chest pain, increased shortness of breath from baseline, leg swelling or leg pain. He states that he is ready for the procedure today. All questions answered. <Deandratc HectorMicki Arie - 12/21/18 18:39> Results - Labs Result diagrams: 12/21/18 05:08 12/21/18 05:08 <Fer Moe - 12/21/18 20:06> Abnormal lab results 12/21/18 12/21/18 Range/Units 05:08 05:08 WBC 12.6 H (4.0-11.0) th/mm3 RBC 3.31 L (4.50-5.90) mil/mm3 Hgb 10.0 L (13.0-17.0) gm/dL Hct 29.7 L (39.0-51.0) % BUN 21 H (7-18) mg/dL Creatinine 1.41 H (0.60-1.30) mg/dL Estimated GFR 48 L (>89) mL/min Calcium 8.2 L (8.5-10.1) mg/dL Total Protein 5.9 L (6.4-8.2) g/dL Albumin 2.5 L (3.4-5.0) g/dL Short CBC 12/21/18 Range/Units 05:08 WBC 12.6 H (4.0-11.0) th/mm3 Hgb 10.0 L (13.0-17.0) gm/dL Hct 29.7 L (39.0-51.0) % Plt Count 204 (150-450) th/mm3 BMP 12/21/18 05:08 Sodium 143 Potassium 4.4 Chloride 104 Carbon Dioxide 29.8 BUN 21 H Creatinine 1.41 H Calcium 8.2 L Liver Function 12/21/18 Range/Units 05:08 Total Bilirubin 0.6 (0.2-1.0) mg/dL AST 29 (15-37) U/L ALT 21 (12-78) U/L Alkaline Phosphatase 89 (45-117) U/L Albumin 2.5 L (3.4-5.0) g/dL <Fer Moe - 12/21/18 20:06> Abnormal lab results 12/21/18 12/21/18 Range/Units 05:08 05:08 WBC 12.6 H (4.0-11.0) th/mm3 RBC 3.31 L (4.50-5.90) mil/mm3 Hgb 10.0 L (13.0-17.0) gm/dL Hct 29.7 L (39.0-51.0) % BUN 21 H (7-18) mg/dL Creatinine 1.41 H (0.60-1.30) mg/dL Estimated GFR 48 L (>89) mL/min Calcium 8.2 L (8.5-10.1) mg/dL Total Protein 5.9 L (6.4-8.2) g/dL Albumin 2.5 L (3.4-5.0) g/dL Short CBC 12/21/18 Range/Units 05:08 WBC 12.6 H (4.0-11.0) th/mm3 Hgb 10.0 L (13.0-17.0) gm/dL Hct 29.7 L (39.0-51.0) % Plt Count 204 (150-450) th/mm3 BMP 12/21/18 05:08 Sodium 143 Potassium 4.4 Chloride 104 Carbon Dioxide 29.8 BUN 21 H Creatinine 1.41 H Calcium 8.2 L Liver Function 12/21/18 Range/Units 05:08 Total Bilirubin 0.6 (0.2-1.0) mg/dL AST 29 (15-37) U/L ALT 21 (12-78) U/L Alkaline Phosphatase 89 (45-117) U/L Albumin 2.5 L (3.4-5.0) g/dL <Micki Villa - 12/21/18 09:07> Physical Exam Vital signs: Vital Signs 12/21/18 00:00 12/21/18 04:00 12/21/18 04:04 Temperature 97.6 F 97.6 F Pulse Rate 77 86 86 Respiratory Rate 19 19 16 Blood Pressure 167/72 H 163/74 H Pulse Oximetry 95 98 12/21/18 08:00 12/21/18 12:00 12/21/18 12:05 Temperature 98.1 F 98.0 F Pulse Rate 61 61 Respiratory Rate 18 16 Blood Pressure 166/70 H 108/54 L Pulse Oximetry 97 98 96 12/21/18 15:37 Temperature 97.7 F Pulse Rate 71 Respiratory Rate 18 Blood Pressure 153/69 H Pulse Oximetry 94 L Intake & Output 12/21/18 12/21/18 12/22/18 06:59 18:59 06:59 Intake Total 300 / 300 Balance 300 / 300 Weight 67.8 kg Intake: Oral 0 / 0 Anesthesia Amount 300 / 300 Other: # Voids 6 5 Date of Last Bowel Movement 12/21/18 # Bowel Movements 6 0 <Fer Moe - 12/21/18 20:06> Vital Signs 12/20/18 11:00 12/20/18 12:00 12/20/18 16:00 Temperature 97 F L 97.8 F Pulse Rate 84 77 80 Respiratory Rate 16 17 18 Blood Pressure 153/67 H 176/76 H Pulse Oximetry 95 96 12/20/18 20:00 12/20/18 20:01 12/21/18 00:00 Temperature 97.5 F L 97.6 F Pulse Rate 80 67 77 Respiratory Rate 18 16 19 Blood Pressure 145/68 H 167/72 H Pulse Oximetry 97 95 12/21/18 04:00 12/21/18 04:04 12/21/18 08:00 Temperature 97.6 F 98.1 F Pulse Rate 86 86 82 Respiratory Rate 19 16 18 Blood Pressure 163/74 H 166/70 H Pulse Oximetry 98 98 Intake & Output 12/20/18 12/21/18 12/21/18 18:59 06:59 18:59 Weight 67.8 kg Other: # Voids 6 Date of Last Bowel Movement 12/19/18 12/21/18 # Bowel Movements 6 <Micki Villa - 12/21/18 09:07> Narrative: GENERAL: 83-year-old, well nourished male, laying down comfortably in bed. In no acute distress. Speaking in complete sentences. On 3 L nasal cannula. SKIN: Warm and dry. Mild skin breakdown on bilateral anterior lower extremity, chronic per patient. Chronic ecchymosis of bilateral forearms. HEAD: Atraumatic. Normocephalic. ENT: No nasal bleeding or discharge. Airway patent. CARDIOVASCULAR: Regular rate and rhythm. No murmur. RESPIRATORY: No accessory muscle use. No increased work of breath. clear to auscultation anteriorly, equal breath sounds. GASTROINTESTINAL: Abdomen soft, nondistended. Mild tenderness to palpation. MUSCULOSKELETAL: No edema noted on exam. No obvious deformities. No calf tenderness. NEUROLOGICAL: Awake and alert. No obvious cranial nerve deficits. Normal speech. PSYCHIATRIC: Appropriate mood and affect; insight and judgment normal. <Micki Villa B - 12/21/18 18:39> Assessment and Plan - Assessment (1) Shortness of breath Code(s): R06.02 - Shortness of breath Status: Acute (2) Acute GI bleeding Code(s): K92.2 - Gastrointestinal hemorrhage, unspecified Status: Acute (3) Diverticulosis Code(s): K57.90 - Diverticulosis of intestine, part unspecified, without perforation or abscess without bleeding Status: Chronic (4) Diverticulitis Code(s): K57.92 - Diverticulitis of intestine, part unspecified, without perforation or abscess without bleeding Status: Acute (5) Anemia Code(s): D64.9 - Anemia, unspecified Status: Acute (6) Acute exacerbation of CHF (congestive heart failure) Code(s): I50.9 - Heart failure, unspecified Status: Acute (7) Renal insufficiency Code(s): N28.9 - Disorder of kidney and ureter, unspecified Status: Acute (8) COPD (chronic obstructive pulmonary disease) Code(s): J44.9 - Chronic obstructive pulmonary disease, unspecified Status: Chronic (9) Hypertension Code(s): I10 - Essential (primary) hypertension Status: Chronic (10) Nutrition, metabolism, and development symptoms Code(s): R63.8 - Other symptoms and signs concerning food and fluid intake Status: Acute (11) DVT prophylaxis Status: Acute <Fer Moe Keshav - 12/21/18 20:06> (1) Shortness of breath Code(s): R06.02 - Shortness of breath Status: Acute Plan: Improved. 3-4L via NC. Likely secondary to CHF exacerbation. WBC normalized as of 12/19/18. Afebrile. Vitals stable. Clear on auscultation and LE edema resolved. Chest XR: Cardiomegaly with mild interstitial edema suggesting failure. Repeat Chest XR: Bibasilar airspace disease with associated effusions. These appear slightly worse when compared to the prior. Findings of prior CABG. BNP: 1140 to 604 Sputum culture remains uncollected Lasix 40mg IV BID. Albuterol-Ipratropium q8hr to alternate with Albuterol. Albuterol q8hr to alternate with DuoNeb. Albuterol q2hr PRN shortness of breath. (2) Acute GI bleeding Code(s): K92.2 - Gastrointestinal hemorrhage, unspecified Status: Acute Plan: s/p 3 units of PRBCs. Hgb stable. Anemia likely secondary to GI bleed. Hemoccult positive. EGD no active bleed identified. Nuclear medicine bleeding scan negative. Patient refusing colonoscopy 12/15/18. Patient now agreeable to colonoscopy; after discussion with GI, rescheduled for 12/21/18 Abdomen/Pelvis CT 12/13/18: 1. Diverticulosis of the descending and sigmoid colon with minimal stranding in the region of the distal descending colon suggesting a mild degree of diverticulitis. No perforation or abscess. 2. Abdominal aortic aneurysm measures 3.5 cm. 3. Status post cholecystectomy. 4. Bilateral renal low-density likely cyst. 5. 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 Pulmonology consulted: -Bedside PFTs performed yesterday by respiratory therapy, showed severe COPD. -confirmed patient's interest in changing CODE STATUS preparation for colonoscopy. GI consulted: To undergo colonoscopy today, following change in CODE STATUS from DNR to full code preparation for this procedure. Continue Augmentin 875/125mg PO q8hr. Protonix 40mg PO daily. Avoid NSAIDs. Hold ASA. Monitor H&H. Transfuse 1 unit of PRBCs with Hgb <8. (3) Diverticulosis Code(s): K57.90 - Diverticulosis of intestine, part unspecified, without perforation or abscess without bleeding Status: Chronic Plan: See plan above. (4) Diverticulitis Code(s): K57.92 - Diverticulitis of intestine, part unspecified, without perforation or abscess without bleeding Status: Acute Plan: See plan above (5) Anemia Code(s): D64.9 - Anemia, unspecified Status: Acute Plan: See plan above. (6) Acute exacerbation of CHF (congestive heart failure) Code(s): I50.9 - Heart failure, unspecified Status: Acute Plan: -Continue p.o. Lasix (7) Renal insufficiency Code(s): N28.9 - Disorder of kidney and ureter, unspecified Status: Acute Plan: Stable, Cr 1.54. Monitor. (8) COPD (chronic obstructive pulmonary disease) Code(s): J44.9 - Chronic obstructive pulmonary disease, unspecified Status: Chronic Plan: Patient with history of COPD, on continuous O2 3L NC at home. At baseline of 3-4L on NC today. See plan above. (9) Hypertension Code(s): I10 - Essential (primary) hypertension Status: Chronic Plan: History of hypertension, stable. Continue home blood pressure medications. (10) Nutrition, metabolism, and development symptoms Code(s): R63.8 - Other symptoms and signs concerning food and fluid intake Status: Acute Plan: Fluids: Tolerating PO. Diet: Cardiac diet. NPO after midnight. Electrodes: Monitor and replete as necessary. (11) DVT prophylaxis Status: Acute Plan: SCDs and compression hose. Pharmacologic prophylaxis contraindicated due to active GI bleed. <Micki Villa 12/21/18 18:40> - Assessment and Plan dw Dr. Moe and Dr. Shanks <Micki Villa 12/21/18 18:39> Discharge Planning: Pending GI clearance. <Micki Villa 12/21/18 18:39> - Attending Attestation The exam, history, and the medical decision-making described in the above note were completed with the assistance of the resident physician. I reviewed and agree with the findings presented. I attest that I had a [id number] encounter with the patient on the same day, and personally performed and documented my assessment and findings in the medical record. saw on his way out to colonoscopy this am, still agreeable and feeling well. truly back to his baseline oxygen requirements. if does well tonight after colonoscopy and stable tomorrow could go home on home medications. colonoscpy found only one polyp that was removed and large diverticulae. PT recommending rehab but patient previously refused. will discuss one last time tomorrow and could go home with home PT v inpt rehab if agreeable <Fer Moe - 12/21/18 20:06> [facility] Last Filed: 12/21/18 18:40> (3) Diverticulosis Qualifiers: Diverticulosis bleeding: diverticulosis with bleeding <Fer Moe Prosper Filed: 12/21/18 20:06> (3) Diverticulosis Qualifiers: Diverticulosis bleeding: diverticulosis with bleeding [facility] Filed: 12/21/18 18:40> (3) Diverticulosis Qualifiers: Diverticulosis bleeding: diverticulosis with bleeding <Fer Moe Prosper Filed: 12/21/18 20:06> (3) Diverticulosis Qualifiers: Diverticulosis bleeding: diverticulosis with bleeding
[2018-12-21] MEDS: Carvedilol 12.5 MG Tablet PO SCH ×2 (09:15→21:19)
[2018-12-21] MEDS ORDERED: Lidocaine PF 1% Inj 5 ML Syringe OTHER ONE (10:50)
[2018-12-21] MEDS ORDERED: Phenylephrine/NS 1000 MCG/10ML Syringe IV.PUSH ONE (10:50)
--- NOTE | 2018-12-21 11:56 | P.PCN ---
Date of procedure: 12/21/18 Pre-op diagnosis: Gastrointestinal bleeding Post-op diagnosis: other (Colon polyp, diverticulosis) Procedure: THANK YOU FOR THE REFERRAL INDICAITON: Gastrointestinal bleeding PROCEDURE PERFORMED Colonoscopy with injection and snare polypectomy and biopsy CONSENT: The patient understands the risks and benefits of the procedure and understands that these risks include, but are not limited to: sedation, allergic reaction, infection, perforation and/or bleeding. Alternative means of evaluation and treatment include, among others: physical exam, x-rays, and/or surgical intervention. The patient elects to proceed with this endoscopic procedure. Medical equipment was checked for proper function. Hand hygiene and appropriate measures for infection prevention was taken. After the risks, benefits and alternatives of the procedure were thoroughly explained, Informed consent was verified, confirmed and timeout was successfully executed by the treatment team. History and physical were updated. Patient was taken to the procedure room and placed in position. Time out was completed. ANESTHESIA: Adequate sedation was performed by anesthesia provider. Colonoscopy, rectal exam was performed the scope was placed in the rectum advanced under direct video observation to the cecum which was identifed by ileo -cecal valve and appendiceal orifice. The scope was then slowly withdrawn with examination of the mucosa to the rectum. Retro-flexion in the rectum was performed, the scope was withdrawan without any immediate complications. FINDINGS: Terminal ileum : Normal for 5 cm Colon: There was moderate large mouth diverticulosis in the sigmoid colon and descending colon. In the hepatic flexure a 1 x 2 cm sessile polyp was identified. There is no evidence or stigmata of recent bleeding. The polyp was injected with 5 cc of diluted epinephrine to raise the polyp. A snare was then used to resect the polyp. A biopsy forcep was then used to obtain further samples. The tip of the snare was then used to obliterate the remaining polyp tissue. Rectum: Retroflexed in the rectum was normal. IMPRESSION: Colon polyp, hepatic flexure Extensive limited diverticulosis large amount. BLOOD LOSS: None COMPLICATIONS: None RECOMMENDATIONS: 1- Supportive care 2- ok to transfer to recovery area per standard criteria. 3- Repeat colonoscopy 3-5 years depending upon pathology 4- Diet: As tolerated 5- Medications: Resume previous medications 6- The patient is provided with postprocedure educational materials and contact information incase of an emergency. 7- Disposition return to floor when meets standard criteria. Anesthesia: MAC Surgeon: Franck Gonzalez Pathology: other (hepatic flexure polyp) Condition: stable Disposition: floor
--- NOTE | 2018-12-21 18:37 | P.PNPL ---
Subjective Interval history: 83 YOWM with COPD,GIB PFT severe COPD On NC Looks comfortable Had Colonoscopy, no complication C/O Stuffy nose Physical Exam Vital signs: Vital Signs 12/20/18 20:00 12/20/18 20:01 12/21/18 00:00 Temperature 97.5 F L 97.6 F Pulse Rate 80 67 77 Respiratory Rate 18 16 19 Blood Pressure 145/68 H 167/72 H Pulse Oximetry 97 95 12/21/18 04:00 12/21/18 04:04 12/21/18 08:00 Temperature 97.6 F 98.1 F Pulse Rate 86 86 61 Respiratory Rate 19 16 18 Blood Pressure 163/74 H 166/70 H Pulse Oximetry 98 97 12/21/18 12:00 12/21/18 12:05 12/21/18 15:37 Temperature 98.0 F 97.7 F Pulse Rate 61 71 Respiratory Rate 16 18 Blood Pressure 108/54 L 153/69 H Pulse Oximetry 98 96 94 L Intake & Output 12/20/18 12/21/18 12/21/18 18:59 06:59 18:59 Intake Total 300 / 300 Balance 300 / 300 Weight 67.8 kg Intake: Anesthesia Amount 300 / 300 Other: # Voids 6 Date of Last Bowel Movement 12/19/18 12/21/18 # Bowel Movements 6 GENERAL: Elderly WM, no distress SKIN: Warm and dry. HEAD: Normocephalic. EYES: No scleral icterus. No injection or drainage. NECK: Supple, trachea midline. No JVD or lymphadenopathy. CARDIOVASCULAR: Regular rate and rhythm without murmurs, gallops, or rubs. RESPIRATORY: Breath sounds equal bilaterally. No accessory muscle use. GASTROINTESTINAL: Abdomen soft, non-tender, nondistended. MUSCULOSKELETAL: No cyanosis, or edema. BACK: Nontender without obvious deformity. No CVA tenderness. Assessment and Plan - Plan IMPRESSION: 1. COPD, he is oxygen dependent. 2. Anemia. 3. Gastrointestinal bleed. 4. Coronary disease, status post redo grafting. 5. History of melanoma. 6. Severe COPD PLAN: Aerosol nebs. Supplement 02 DW Pt and his Rosalie NS
[2018-12-21] MEDS: Acetaminophen 325 MG Tablet PO PRN (21:18)
[2018-12-21] MEDS: Sodium Chloride 0.65% Nasal Spray 45 ML Bottle EACH NARE SCH (22:41)
[2018-12-22] MEDS: Sodium Chloride 0.65% Nasal Spray 45 ML Bottle EACH NARE SCH ×4 (01:26→13:01)
[2018-12-22 05:41] LABS: Hematocrit 28.1 % (39.0-51.0); Hemoglobin 9.5 gm/dL (13.0-17.0); Mean Corpuscular HGB Conc 33.7 % (32.0-36.0); Mean Corpuscular Hemoglobin 30.3 pg (27.0-34.0); Mean Corpuscular Volume 89.9 fL (80.0-100.0); Mean Platelet Volume 8.9 fL (7.0-11.0); Platelet Count 179 th/mm3 (150-450); Red Blood Count 3.13 mil/mm3 (4.50-5.90); Red Cell Distribution Width 14.7 % (11.6-17.2)
[2018-12-22] MEDS: hydrALAZINE 10 MG Tablet PO SCH ×2 (05:45→13:01)
[2018-12-22] MEDS: Amoxicillin/Clavulanate 875/125 MG Tablet PO SCH ×2 (05:45→13:01)
[2018-12-22 06:05] LABS: Calcium 8.4 mg/dL (8.5-10.1); Potassium 4.1 meq/L (3.5-5.1)
[2018-12-22] MEDS: Isosorbide Mononitrate 30 MG ER 24HR Tablet (Imdur) PO SCH (06:55)
--- NOTE | 2018-12-22 07:59 | P.PNFP ---
Subjective Interval history: Patient reports feeling well. He denies any bleeding. Discussed results of colonoscopy with patient including diverticulosis, polyp. Patient complained of some shortness of breath overnight. He denied any nausea , vomiting, abdominal pain. Discussed plan of care with patient including plan to discharge to senior living facility for PT and OT rehab. Patient expressed understanding and consent. <Fer Sky A - 12/22/18 11:36> Results - Labs Result diagrams: 12/22/18 05:17 12/22/18 05:17 <Fer Moe - 12/22/18 13:21> Abnormal lab results 12/22/18 12/22/18 Range/Units 05:17 05:17 RBC 3.13 L (4.50-5.90) mil/mm3 Hgb 9.5 L (13.0-17.0) gm/dL Hct 28.1 L (39.0-51.0) % Carbon Dioxide 33.0 H (21.0-32.0) meq/L BUN 24 H (7-18) mg/dL Creatinine 1.64 H (0.60-1.30) mg/dL Estimated GFR 40 L (>89) mL/min Calcium 8.4 L (8.5-10.1) mg/dL Short CBC 12/22/18 Range/Units 05:17 WBC 9.0 (4.0-11.0) th/mm3 Hgb 9.5 L (13.0-17.0) gm/dL Hct 28.1 L (39.0-51.0) % Plt Count 179 (150-450) th/mm3 BMP 12/22/18 05:17 Sodium 142 Potassium 4.1 Chloride 103 Carbon Dioxide 33.0 H BUN 24 H Creatinine 1.64 H Calcium 8.4 L <Fer Moe - 12/22/18 13:21> Abnormal lab results 12/22/18 12/22/18 Range/Units 05:17 05:17 RBC 3.13 L (4.50-5.90) mil/mm3 Hgb 9.5 L (13.0-17.0) gm/dL Hct 28.1 L (39.0-51.0) % Carbon Dioxide 33.0 H (21.0-32.0) meq/L BUN 24 H (7-18) mg/dL Creatinine 1.64 H (0.60-1.30) mg/dL Estimated GFR 40 L (>89) mL/min Calcium 8.4 L (8.5-10.1) mg/dL Short CBC 12/22/18 Range/Units 05:17 WBC 9.0 (4.0-11.0) th/mm3 Hgb 9.5 L (13.0-17.0) gm/dL Hct 28.1 L (39.0-51.0) % Plt Count 179 (150-450) th/mm3 BMP 12/22/18 05:17 Sodium 142 Potassium 4.1 Chloride 103 Carbon Dioxide 33.0 H BUN 24 H Creatinine 1.64 H Calcium 8.4 L <Fer Sky A - 12/22/18 07:59> Physical Exam Vital signs: Vital Signs 12/21/18 15:37 12/21/18 20:00 12/21/18 20:10 Temperature 97.7 F 97.9 F Pulse Rate 71 78 74 Respiratory Rate 18 19 Blood Pressure 153/69 H 158/72 H Pulse Oximetry 94 L 95 12/21/18 20:17 12/22/18 00:00 12/22/18 00:05 Temperature 97.9 F Pulse Rate 70 75 Respiratory Rate 20 Blood Pressure 141/67 H Pulse Oximetry 96 93 L 12/22/18 04:00 12/22/18 08:00 12/22/18 09:31 Temperature 97.9 F 98.1 F Pulse Rate 67 70 Respiratory Rate 19 20 Blood Pressure 144/66 H 176/70 H Pulse Oximetry 97 95 95 12/22/18 12:00 Temperature 98.0 F Pulse Rate 81 Respiratory Rate 20 Blood Pressure 188/76 H Pulse Oximetry 97 Intake & Output 12/21/18 12/22/18 12/22/18 18:59 06:59 18:59 Intake Total 300 / 300 340 / 340 Output Total 550 / 550 Balance 300 / 300 -210 / -210 Weight 67.8 kg Intake: Oral 0 / 0 340 / 340 Anesthesia Amount 300 / 300 Output: Urine 550 / 550 Other: # Voids 5 Date of Last Bowel Movement 12/21/18 # Bowel Movements 0 0 <Fer Moe - 12/22/18 13:21> Vital Signs 12/21/18 08:00 12/21/18 12:00 12/21/18 12:05 Temperature 98.1 F 98.0 F Pulse Rate 61 61 Respiratory Rate 18 16 Blood Pressure 166/70 H 108/54 L Pulse Oximetry 97 98 96 12/21/18 15:37 12/21/18 20:00 12/21/18 20:10 Temperature 97.7 F 97.9 F Pulse Rate 71 78 74 Respiratory Rate 18 19 Blood Pressure 153/69 H 158/72 H Pulse Oximetry 94 L 95 12/21/18 20:17 12/22/18 00:00 12/22/18 00:05 Temperature 97.9 F Pulse Rate 70 75 Respiratory Rate 20 Blood Pressure 141/67 H Pulse Oximetry 96 93 L 12/22/18 04:00 Temperature 97.9 F Pulse Rate 67 Respiratory Rate 19 Blood Pressure 144/66 H Pulse Oximetry 97 Intake & Output 12/21/18 12/22/18 12/22/18 18:59 06:59 18:59 Intake Total 300 / 300 340 / 340 Output Total 550 / 550 Balance 300 / 300 -210 / -210 Weight 67.8 kg Intake: Oral 0 / 0 340 / 340 Anesthesia Amount 300 / 300 Output: Urine 550 / 550 Other: # Voids 5 Date of Last Bowel Movement 12/21/18 # Bowel Movements 0 0 <Fer Sky - 12/22/18 07:59> Narrative: GENERAL: 83-year-old, well nourished male, laying down comfortably in bed. In no acute distress. Speaking in complete sentences. On 3 L nasal cannula. SKIN: Warm and dry. Mild skin breakdown on bilateral anterior lower extremities , chronic per patient. Chronic ecchymosis of bilateral forearms. HEAD: Atraumatic. Normocephalic. ENT: No nasal bleeding or discharge. Airway patent. CARDIOVASCULAR: Regular rate and rhythm. No murmur. RESPIRATORY: No accessory muscle use. No increased work of breath. clear to auscultation anteriorly, equal breath sounds. GASTROINTESTINAL: Abdomen soft, nondistended. Mild tenderness to palpation. MUSCULOSKELETAL: No edema noted on exam. No obvious deformities. No calf tenderness. NEUROLOGICAL: Awake and alert. No obvious cranial nerve deficits. Normal speech. PSYCHIATRIC: Appropriate mood and affect; insight and judgment normal. <Fer Sky 12/22/18 11:36> Assessment and Plan - Assessment (1) Shortness of breath Code(s): R06.02 - Shortness of breath Status: Acute (2) Acute GI bleeding Code(s): K92.2 - Gastrointestinal hemorrhage, unspecified Status: Acute (3) Diverticulitis Code(s): K57.92 - Diverticulitis of intestine, part unspecified, without perforation or abscess without bleeding Status: Acute (4) Diverticulosis Code(s): K57.90 - Diverticulosis of intestine, part unspecified, without perforation or abscess without bleeding Status: Chronic (5) Anemia Code(s): D64.9 - Anemia, unspecified Status: Acute (6) Acute exacerbation of CHF (congestive heart failure) Code(s): I50.9 - Heart failure, unspecified Status: Acute (7) Renal insufficiency Code(s): N28.9 - Disorder of kidney and ureter, unspecified Status: Acute (8) COPD (chronic obstructive pulmonary disease) Code(s): J44.9 - Chronic obstructive pulmonary disease, unspecified Status: Chronic (9) Hypertension Code(s): I10 - Essential (primary) hypertension Status: Chronic (10) Nutrition, metabolism, and development symptoms Code(s): R63.8 - Other symptoms and signs concerning food and fluid intake Status: Acute (11) DVT prophylaxis Status: Acute <Fer Moe - 12/22/18 13:21> (1) Shortness of breath Code(s): R06.02 - Shortness of breath Status: Acute Plan: Improved. On 3L via NC. Likely secondary to CHF exacerbation. Plan: Lasix 40mg IV BID. Albuterol-Ipratropium q8hr to alternate with Albuterol. Albuterol q8hr to alternate with DuoNeb. Albuterol q2hr PRN shortness of breath. Continue O2 as needed. Pulmonology consulted: -Bedside PFTs performed yesterday by respiratory therapy, showed severe COPD. -confirmed patient's interest in changing CODE STATUS preparation for colonoscopy. Work up: WBC normalized as of 12/19/18. Afebrile. Vitals stable. Clear on auscultation and LE edema resolved. Chest XR: Cardiomegaly with mild interstitial edema suggesting failure. Repeat Chest XR: Bibasilar airspace disease with associated effusions. These appear slightly worse when compared to the prior. Findings of prior CABG. BNP: 1140 to 604 Sputum culture remains uncollected (2) Acute GI bleeding Code(s): K92.2 - Gastrointestinal hemorrhage, unspecified Status: Acute Plan: Anemia likely secondary to GI bleed. s/p 3 units of PRBCs. Hgb stable. GI consult appreciated: Colon polyp, hepatic flexure Extensive limited diverticulosis large amount. Repeat colonoscopy 3-5 years depending upon pathology No more melena, hgb today 9.5 stable. Plan -DENISE -PPI -CE as an OP -Avoid NSAIDs -F/U with GI upon discharge -GI will sign off -Further recommendations to follow Patient on Levaquin and Flagyl on 12/13/18, then Augmentin 875/125mg PO q8hr from 12/14/18 until 12/22/2018, which is day 10 of abx, which is last day for 7-10 day antibiotic treatment for diverticulitis Protonix 40mg PO daily. Avoid NSAIDs. Hold ASA. Monitor H&H. Transfuse 1 unit of PRBCs with Hgb <8. Work up: Hemoccult positive. EGD no active bleed identified. Nuclear medicine bleeding scan negative. Patient refusing colonoscopy 12/15/18. Patient now agreeable to colonoscopy; after discussion with GI, rescheduled for 12/21/18 Abdomen/Pelvis CT 12/13/18: 1. Diverticulosis of the descending and sigmoid colon with minimal stranding in the region of the distal descending colon suggesting a mild degree of diverticulitis. No perforation or abscess. 2. Abdominal aortic aneurysm measures 3.5 cm. 3. Status post cholecystectomy. 4. Bilateral renal low-density likely cyst. 5. 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 (3) Diverticulitis Code(s): K57.92 - Diverticulitis of intestine, part unspecified, without perforation or abscess without bleeding Status: Acute Plan: See plan above: Today's last day of antibiotics for diverticulitis (4) Diverticulosis Code(s): K57.90 - Diverticulosis of intestine, part unspecified, without perforation or abscess without bleeding Status: Chronic Plan: See plan above. (5) Anemia Code(s): D64.9 - Anemia, unspecified Status: Acute Plan: See plan above. (6) Acute exacerbation of CHF (congestive heart failure) Code(s): I50.9 - Heart failure, unspecified Status: Acute Plan: -Continue IV Lasix with plan to transition to p.o. when clinically indicated (7) Renal insufficiency Code(s): N28.9 - Disorder of kidney and ureter, unspecified Status: Acute Plan: Stable, Cr 1.54, 1.45, 1.41, 1.64 Continue to diuresis and Monitor. (8) COPD (chronic obstructive pulmonary disease) Code(s): J44.9 - Chronic obstructive pulmonary disease, unspecified Status: Chronic Plan: Patient with history of COPD, on continuous O2 3L NC at home. At baseline of 3-4L on NC today. See plan above. (9) Hypertension Code(s): I10 - Essential (primary) hypertension Status: Chronic Plan: History of hypertension, stable. Continue home blood pressure medications. (10) Nutrition, metabolism, and development symptoms Code(s): R63.8 - Other symptoms and signs concerning food and fluid intake Status: Acute Plan: Fluids: Tolerating PO. Diet: Cardiac diet as tolerated. Electrodes: Monitor and replete as necessary. (11) DVT prophylaxis Status: Acute Plan: SCDs and compression hose. Pharmacologic prophylaxis contraindicated due to recent active GI bleed. <Edgardo BradyFerAaron - 12/22/18 11:36> - Assessment and Plan This patient is a pleasant 83-year-old male with past medical history significant for CVA with left-sided weakness, hypertension, hyperlipidemia, coronary artery disease, COPD, Surgical history significant for CABG x2 in 1994 and 2001 and abdominal aortic aneurysm repair in 2001. Patient presented to [facility] emergency room with reports of shortness of breath and dizziness. Patient endorsed melena onset 2-3 days prior. Upon arrival to ER, hemoglobin noted to be 5.4, hematocrit 16.6. Patient was been placed on a pantoprazole as well as octreotide drip. Patient transfused with 3 ordered units of packed RBCs. Patient had CT abd/pelvis on 12/13/18 that showed diverticulitis, which was treated with a 10-day course of antibiotics. GI was consulted and performed EGD on 12/13/18 that was unremarkable. Nuclear medicine bleeding scan negative. Colonoscopy on 12/21/2018 unremarkable. No more melena, hemoglobin stable. Follow-up with GI upon discharge and consider capsule endoscopy as an outpatient. dw Dr. Moe and Dr. Cleaning <Fer Sky - 12/22/18 12:00> - Attending Attestation The exam, history, and the medical decision-making described in the above note were completed with the assistance of the resident physician. I reviewed and agree with the findings presented. I attest that I had a [id number] encounter with the patient on the same day, and personally performed and documented my assessment and findings in the medical record. tolerated colonoscopy well. no further bleeding Hgb stable on home baseline O2 BPs elevated but home amlodipine 10mg had not been ordered, will add back today. agreeable to SNF will d/c there today. outpatient pulm and GI follow up. accidentally added addendum to GI note. after reading FM resident note, I placed order for amlodipine and then went back and addended incorrect note <Fer Moe - 12/22/18 13:21> <Fer Sky A - Last Filed: 12/22/18 11:36> (4) Diverticulosis Qualifiers: Diverticulosis bleeding: diverticulosis with bleeding <Fer Moe - Last Filed: 12/22/18 13:21> (4) Diverticulosis Qualifiers: Diverticulosis bleeding: diverticulosis with bleeding <Fer Sky A - Last Filed: 12/22/18 11:36> (4) Diverticulosis Qualifiers: Diverticulosis bleeding: diverticulosis with bleeding <Fer Moe - Last Filed: 12/22/18 13:21> (4) Diverticulosis Qualifiers: Diverticulosis bleeding: diverticulosis with bleeding
[2018-12-22 08:50] VITALS: RESP 20
[2018-12-22] MEDS: Carvedilol 12.5 MG Tablet PO SCH (09:07)
--- NOTE | 2018-12-22 09:18 | P.PNGI ---
Subjective Interval history: Patient is resting in bed, eating breakfast. no more melena reported. Denies N/ V or abd pain. <Chantal Strong - 12/22/18 09:18> Physical Exam Vital signs: Vital Signs 12/21/18 15:37 12/21/18 20:00 12/21/18 20:10 Temperature 97.7 F 97.9 F Pulse Rate 71 78 74 Respiratory Rate 18 19 Blood Pressure 153/69 H 158/72 H Pulse Oximetry 94 L 95 12/21/18 20:17 12/22/18 00:00 12/22/18 00:05 Temperature 97.9 F Pulse Rate 70 75 Respiratory Rate 20 Blood Pressure 141/67 H Pulse Oximetry 96 93 L 12/22/18 04:00 12/22/18 08:00 12/22/18 09:31 Temperature 97.9 F 98.1 F Pulse Rate 67 70 Respiratory Rate 19 20 Blood Pressure 144/66 H 176/70 H Pulse Oximetry 97 95 95 12/22/18 12:00 Temperature 98.0 F Pulse Rate 81 Respiratory Rate 20 Blood Pressure 188/76 H Pulse Oximetry 97 Intake & Output 12/21/18 12/22/18 12/22/18 18:59 06:59 18:59 Intake Total 300 / 300 340 / 340 Output Total 550 / 550 Balance 300 / 300 -210 / -210 Weight 67.8 kg Intake: Oral 0 / 0 340 / 340 Anesthesia Amount 300 / 300 Output: Urine 550 / 550 Other: # Voids 5 Date of Last Bowel Movement 12/21/18 # Bowel Movements 0 0 <Fer Moe - 12/22/18 13:18> Vital Signs 12/21/18 12:00 12/21/18 12:05 12/21/18 15:37 Temperature 98.0 F 97.7 F Pulse Rate 61 71 Respiratory Rate 16 18 Blood Pressure 108/54 L 153/69 H Pulse Oximetry 98 96 94 L 12/21/18 20:00 12/21/18 20:10 12/21/18 20:17 Temperature 97.9 F Pulse Rate 78 74 Respiratory Rate 19 Blood Pressure 158/72 H Pulse Oximetry 95 96 12/22/18 00:00 12/22/18 00:05 12/22/18 04:00 Temperature 97.9 F 97.9 F Pulse Rate 70 75 67 Respiratory Rate 20 19 Blood Pressure 141/67 H 144/66 H Pulse Oximetry 93 L 97 12/22/18 08:00 Temperature 98.1 F Pulse Rate 70 Respiratory Rate 20 Blood Pressure 176/70 H Pulse Oximetry 95 Intake & Output 12/21/18 12/22/18 12/22/18 18:59 06:59 18:59 Intake Total 300 / 300 340 / 340 Output Total 550 / 550 Balance 300 / 300 -210 / -210 Weight 67.8 kg Intake: Oral 0 / 0 340 / 340 Anesthesia Amount 300 / 300 Output: Urine 550 / 550 Other: # Voids 5 Date of Last Bowel Movement 12/21/18 # Bowel Movements 0 0 <Chantal Strong - 12/22/18 09:18> Narrative: GENERAL: 83-year-old, well nourished male, laying down comfortably in bed. In no acute distress. SKIN: Warm and dry. HEAD: Atraumatic. Normocephalic. CARDIOVASCULAR: Regular rate and rhythm. No murmur. RESPIRATORY: No accessory muscle use. No increased work of breath. clear to auscultation anteriorly, equal breath sounds. GASTROINTESTINAL: Abdomen soft, nondistended. Mild tenderness to palpation. MUSCULOSKELETAL: No edema noted on exam. No obvious deformities. No calf tenderness. NEUROLOGICAL: Awake and alert. No obvious cranial nerve deficits. Normal speech. PSYCHIATRIC: Appropriate mood and affect; insight and judgment normal. <Chantal Strong - 12/22/18 09:18> Results - Labs CBC & Chem 7: 12/22/18 05:17 12/22/18 05:17 <Fer Moe - 12/22/18 13:18> Laboratory Results - last 24 hr 12/22/18 12/22/18 05:17 05:17 WBC 9.0 RBC 3.13 L Hgb 9.5 L Hct 28.1 L MCV 89.9 MCH 30.3 MCHC 33.7 RDW 14.7 Plt Count 179 MPV 8.9 Sodium 142 Potassium 4.1 Chloride 103 Carbon Dioxide 33.0 H Anion Gap 6 BUN 24 H Creatinine 1.64 H Estimated GFR 40 L Random Glucose 93 Calcium 8.4 L <Fer Moe - 12/22/18 13:18> Laboratory Results - last 24 hr 12/22/18 12/22/18 05:17 05:17 WBC 9.0 RBC 3.13 L Hgb 9.5 L Hct 28.1 L MCV 89.9 MCH 30.3 MCHC 33.7 RDW 14.7 Plt Count 179 MPV 8.9 Sodium 142 Potassium 4.1 Chloride 103 Carbon Dioxide 33.0 H Anion Gap 6 BUN 24 H Creatinine 1.64 H Estimated GFR 40 L Random Glucose 93 Calcium 8.4 L <Chao kimvt - 12/22/18 09:18> Assessment and Plan (1) Acute GI bleeding Status: Acute Code(s): K92.2 - Gastrointestinal hemorrhage, unspecified (2) Anemia Status: Acute Code(s): D64.9 - Anemia, unspecified (3) Renal insufficiency Status: Acute Code(s): N28.9 - Disorder of kidney and ureter, unspecified (4) Hypertension Status: Chronic Code(s): I10 - Essential (primary) hypertension (5) COPD (chronic obstructive pulmonary disease) Status: Chronic Code(s): J44.9 - Chronic obstructive pulmonary disease, unspecified (6) Diverticulosis Status: Chronic Code(s): K57.90 - Diverticulosis of intestine, part unspecified, without perforation or abscess without bleeding <Chao kimvt - 12/22/18 09:10> (1) Shortness of breath Status: Acute Code(s): R06.02 - Shortness of breath (2) Acute GI bleeding Status: Acute Code(s): K92.2 - Gastrointestinal hemorrhage, unspecified (3) Diverticulitis Status: Acute Code(s): K57.92 - Diverticulitis of intestine, part unspecified , without perforation or abscess without bleeding (4) Diverticulosis Status: Chronic Code(s): K57.90 - Diverticulosis of intestine, part unspecified, without perforation or abscess without bleeding (5) Anemia Status: Acute Code(s): D64.9 - Anemia, unspecified (6) Acute exacerbation of CHF (congestive heart failure) Status: Acute Code(s): I50.9 - Heart failure, unspecified (7) Renal insufficiency Status: Acute Code(s): N28.9 - Disorder of kidney and ureter, unspecified (8) COPD (chronic obstructive pulmonary disease) Status: Chronic Code(s): J44.9 - Chronic obstructive pulmonary disease, unspecified (9) Hypertension Status: Chronic Code(s): I10 - Essential (primary) hypertension (10) Nutrition, metabolism, and development symptoms Status: Acute Code(s): R63.8 - Other symptoms and signs concerning food and fluid intake (11) DVT prophylaxis Status: Acute <Fer Moe - 12/22/18 13:18> - Plan This patient is a pleasant 83-year-old male with past medical history significant for CVA with left-sided weakness, hypertension, hyperlipidemia, coronary artery disease COPD. Surgical history significant for CABG x2 in 1994 and 2001 and abdominal aortic aneurysm repair in 2001. Patient presented to [facility] emergency room with reports of shortness of breath and dizziness. Patient endorsed black tarry stools onset 2-3 days ago. Patient endorses generalized weakness with shortness of breath, denies any abdominal pain or vomiting. Patient does admit to having nausea over the last 3-4 days. States last EGD with colonoscopy done estimated 5 years ago no significant findings. Prior colonoscopy 10 years ago revealed polyps that were benign per patient. Patient denies use of NSAIDs other than baby aspirin once daily. States he takes Tylenol as needed for arthritic pain. Patient denies use of tobacco or alcohol products. Upon arrival to ER, hemoglobin noted to be 5.4 hematocrit 16.6. Patient has been placed on a pantoprazole as well as octreotide drip. Patient currently being transfused with #1 of 3 ordered units of packed RBCs. Our service has been consulted to evaluate patient for GI bleeding. Melena stools GI bleed black tarry stools 2-3 days prior to admission. -Hemoglobin 5.4 hematocrit 16.6 on arrival. 12/13/2018 CT abdomen and pelvis: Diverticulosis of the descending and sigmoid colon with minimal stranding in the region of the distal descending colon suggesting a mild degree of diverticulitis. No perforation or abscess. Abdominal aortic aneurysm measures 3.5 cm. Status post cholecystectomy. Bilateral renal low-density likely cyst. 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 Repeat colonoscopy 3-5 years depending upon pathology No more melena, hgb today 9.5 stable. Plan -DENISE -PPI -CE as an OP -Avoid NSAIDs -F/U with GI upon discharge - GI will sign off -Further recommendations to follow This patient has been seen by myself and Dr. Gonzalez and this note is written on his behalf <Chantal Strong - 12/22/18 09:18> - Attending Attestation The exam, history, and the medical decision-making described in the above note were completed with the assistance of the resident physician. I reviewed and agree with the findings presented. I attest that I had a [id number] encounter with the patient on the same day, and personally performed and documented my assessment and findings in the medical record. tolerated colonoscopy well. no further bleeding Hgb stable on home baseline O2 BPs elevated but home amlodipine 10mg had not been ordered, will add back today. agreeable to SNF will d/c there today. outpatient pulm and GI follow up. <Fer Moe - 12/22/18 13:18> <Chantal Strong - Last Filed: 12/22/18 09:10> (6) Diverticulosis Qualifiers: Diverticulosis bleeding: diverticulosis with bleeding <Fer Moe - Last Filed: 12/22/18 13:18> (4) Diverticulosis Qualifiers: Diverticulosis bleeding: diverticulosis with bleeding <Chantal Strong Filed: 12/22/18 09:10> (6) Diverticulosis Qualifiers: Diverticulosis bleeding: diverticulosis with bleeding <Fer Moe - [place] Filed: 12/22/18 13:18> (4) Diverticulosis Qualifiers: Diverticulosis bleeding: diverticulosis with bleeding
[2018-12-22] MEDS ORDERED: Vancomycin Consult Pharmacy OTHER PRN (12:04)
[2018-12-22] MEDS ORDERED: Piperacil/Tazo 3.375 GM Premix 3.375 GM/50 ML PIGGYBACK IV.SIG SCH (12:10)
[2018-12-22 12:29] VITALS: BP 188/76; PULSE 81; TEMP 98; O2SAT 97
[2018-12-22] MEDS ORDERED: Vancomycin Inj 1,000 MG in Sodium Chlor 0.9% Inj 250 ML IV.SIG SCH ×2 (13:00→15:00)
[2018-12-23] MEDS ORDERED: amLODIPine 10 MG Tablet PO SCH (09:00)
--- NOTE | 2018-12-24 16:51 | P.DS ---
Date of admission: 12/13/18 11:49 Primary care physician: Isrrael Gill Brief History from admission: 83 year old male with hx of hypertension, hyperlipidemia, CAD status post CABG and COPD presents to the hospital for black tarry stools noted 3-4 days ago. Patient states he has passed a total of 2 to 3 black stools. He denies having anything like this before in the past and is not on iron supplementation. He denies seeing bright red blood in his stool. He is mildly nauseated and felt faint this morning, but denies vomiting. After receiving fluids in the ED, he is no longer experiencing lightheadedness. He admits to abdominal "soreness" in the lower quadrants for the past couple of weeks. He is currently on aspirin , but is not on any other blood thinners. Denies chronic NSAID use. He also notes increasing fatigue for the past couple of weeks. Denies any alcohol use, or history of liver problems. He does admit to history of bleeding hemorrhoids and is currently on a PPI for reflux, however, denies any other GI issues. States that his last colonoscopy was performed within the last 5 years, which was normal. Denies fevers, chills, unintentional weight loss, other notable bleeding, headache, syncopal, chest pain, or recent recurrent falls. Patient also notes slightly increased shortness of breath from baseline, which he attributes to his COPD. He is normally on O2 3L NC continuously throughout the day, and uses albuterol nebulizing treatments and steroid inhaler every day. No sick contacts. 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 Quit smoking in 1994. Drink EOTH rarely. Admits to drinking 1 beer every couple months. Denies illicit drug use PCP: Recently changed to a new physician in [place]. Used to see Dr. De Leon. 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 DS: Diagnosis - Discharge Diagnosis (1) Shortness of breath Status: Acute (2) Acute GI bleeding Status: Acute (3) Diverticulosis Status: Chronic (4) Diverticulitis Status: Acute (5) Anemia Status: Acute (6) Acute exacerbation of CHF (congestive heart failure) Status: Acute (7) Renal insufficiency Status: Acute (8) COPD (chronic obstructive pulmonary disease) Status: Chronic (9) Hypertension Status: Chronic (10) Nutrition, metabolism, and development symptoms Status: Acute (11) DVT prophylaxis Status: Acute DS: Medications - Discharge Medications Prescriptions: amlodipine 10 mg PO DAILY #30 units DS: Summary Hospital Course: 83-year-old male with history of hypertension, hyperlipidemia, CAD status post CABG and COPD admitted for anemia requiring transfusion suspected upper GI bleed. Patient's initial hemoglobin level was 5.4, and he was transfused 3 units of packed red blood cells. Patient's hemoglobin levels remained stable following the transfusion. CT abdomen performed in ED showed diverticulosis with mild diverticulitis. Patient was placed on Augmentin and Protonix. GI was consulted, who performed EGD and nuclear medicine GI bleeding scan, which were both negative for obvious gastrointestinal hemorrhage. Colonoscopy was recommended, however, however due to patient's severe COPD with mild decompensation during the beginning of the hospital stay and patient's DNI CODE STATUS, the procedure was initially deferred. After multiple discussions, with the primary medicine team, GI, and pulmonology, the patient and patient's eventually decided to change the patient's CODE STATUS temporarily for the procedure to full code. Patient underwent colonoscopy on 12/21/2018 which showed moderate diverticulosis in the sigmoid and descending colon and a small sessile polyp, which was biopsied. Patient tolerated procedure well, and patient was instructed to follow-up with GI for biopsy results. Patient discharged to [facility] with recommendations for daily PT/OT in stable condition with recommendations to follow-up with GI and his PCP following hospital discharge. - Time Spent with Patient Total time spent providing and/or coordinating discharge services: Greater than 30 minutes - Quality: VTE Deep Vein Thrombosis/Pulmonary Embolism Present on Admission: No Exam Narrative: GENERAL: 83-year-old, well nourished male, laying down comfortably in bed. In no acute distress. Speaking in complete sentences. On 3 L nasal cannula. SKIN: Warm and dry. Mild skin breakdown on bilateral anterior lower extremity, chronic per patient. Chronic ecchymosis of bilateral forearms. HEAD: Atraumatic. Normocephalic. ENT: No nasal bleeding or discharge. Airway patent. CARDIOVASCULAR: Regular rate and rhythm. No murmur. RESPIRATORY: No accessory muscle use. No increased work of breath. clear to auscultation anteriorly, equal breath sounds. GASTROINTESTINAL: Abdomen soft, nondistended. Mild tenderness to palpation. MUSCULOSKELETAL: No edema noted on exam. No obvious deformities. No calf tenderness. NEUROLOGICAL: Awake and alert. No obvious cranial nerve deficits. Normal speech. PSYCHIATRIC: Appropriate mood and affect; insight and judgment normal. Results Procedures completed during hospitalization: Nuclear medicine bleeding scan EGD Colonoscopy Completed studies during hospitalization: Pending at discharge 12/21/18 13:35 Surgical [PTH] Routine - Impressions ITS Impressions GI Bleed Scan Nuclear Medicine 12/13/18 00:00 CONCLUSION: 1. Negative for gastrointestinal hemorrhage Abdomen/Pelvis CT 12/13/18 10:18 CONCLUSION: 1. Diverticulosis of the descending and sigmoid colon with minimal stranding in the region of the distal descending colon suggesting a mild degree of diverticulitis. No perforation or abscess. 2. Abdominal aortic aneurysm measures 3.5 cm. 3. Status post cholecystectomy. 4. Bilateral renal low-density likely cyst. 5. 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 Chest X-Ray 12/19/18 00:00 CONCLUSION: 1. Bibasilar airspace disease with associated effusions. These appear slightly worse when compared to the prior. 2. Findings of prior CABG. Discharge Plan - Discharge Disposition Patient Disposition: Discharge to SNF - Discharge Condition Condition: Stable - Discharge Order Discharge Orders: Discharge Order (Routine); Ordered 12/22/18 Ordered By: Micki Cleaning R1 ED Use Only Admit Order (Routine); Ordered 12/13/18 Ordered By: Shaw Julian - Physicians Team Primary Care Provider: Isrrael Gill Attending Provider: Fer Moe Other Providers: Sancho Monique MD ; [place] ; Dung Sabianism [facility] ; [place] Watts MD
[2018-12-25] MEDS ORDERED: Pharmacy Ordered Lab Info OTHER ONE (14:45)
== END 2018-12-22 15:01 | DRG 378 ==
LOC: NEPE 09:37 → NEDA 11:49 → N07 15:58 → HPAC 16:10 → N07 19:31
PROVIDERS: ADMIT Family Medicine; ATTEND Family Medicine
PROC: PANENDO (2018-12-13 15:40)
PROC: COLONOS (2018-12-21 10:50)
CPT/HCPCS: 36430; 36600; 71020; 71046; 74176; 76937; 78278; 80048; 80053; 81001; 82805; 83520; 83690; 83880; 84484; 85014; 85018; 85025; 85027; 85610; 85730; 86850; 86900; 86901; 86923; 88305; 90774; 90784; 93005; 94060; 94640; 94665; 96374; 97110; 97116; 97162; 97167; 97530; 97535; 99285; A9560; C8952; C9113; J1940; J1956; J2270; J2354; J2370; J2405; J2704; J7030; J7040; J7120; P9016; Q3010